=== PATIENT | female | born 1930 | race Asian ===

== ENCOUNTER → 2017-01-22 | Outpatient (CLI) | payer OTHER ==
[~2017-01-22] MED LIST: CALC-393 PO; FERR1TAB13 PO; GLUC1CAP32 PO; LINA1CAP2 PO; LOVA40TA4 PO; PANT40TA PO
[2017-01-22 13:08] LABS: BASO % 0.3 %; BASO ABS # 0.02 K/uL (0-0.2); COMPLETE YES; EOS % 1.3 %; HEMATOCRIT 29.8 % (37-47); IG% 0.2 %; LYMPH % 30.2 %; MEAN CELL VOLUME 84.7 fL (80-100); MEAN CORPUSCULAR HEMOGLOBIN 26.7 pg (25-34); MEAN CORPUSCULAR HGB CONC 31.5 g/dl (32-36); MEAN PLATELET VOLUME 10.7 fL (7.4-10.4); MONO % 6.2 %; NEUT % 61.8 %; PLATELET COUNT 204 K/uL (130-400); RED BLOOD COUNT 3.52 M/uL (4.2-5.4); WHITE BLOOD COUNT 5.97 K/uL (4.8-10.8)
[2017-01-22 13:44] LABS: ALT/SGPT 21 U/L (12-78); AST/SGOT 19 U/L (15-37); BLOOD UREA NITROGEN 25 mg/dl (7-18); BUN/CREATININE RATIO 28.9 (10-20); CALCIUM 8.6 mg/dl (8.5-10.1); CARBON DIOXIDE 24 mmol/L (21-32); CHLORIDE 111 mmol/L (98-107); CHOLESTEROL 156 mg/dl (0-200); CREATININE 0.88 mg/dl (0.60-1.20); GLUCOSE 123 mg/dl (70-99); POTASSIUM 4.8 mmol/L (3.5-5.1); SODIUM 141 mmol/L (136-145); TRIGLYCERIDES 142 mg/dl (0-150); VERY LOW DENSITY LIPOPROT CALC 28 mg/dl
[2017-01-22 13:47] LABS: CHOLESTEROL/HDL RATIO 2.7; FERRITIN 18.2 ng/ml (8.0-388.0); HDL CHOLESTEROL 57 mg/dl; LDL CHOLESTEROL CALCULATED 71 mg/dl; TOTAL IRON BINDING CAPACITY 437 mcg/dl (250-450)
== END | disposition home or self-care (01) ==
LOC: C.LAB1850 12:16
PROVIDERS: ATTEND Internal Medicine
DX: D64.9 Anemia, unspecified (principal); E78.5 Hyperlipidemia, unspecified

== ENCOUNTER → 2017-02-19 | Outpatient (CLI) | payer OTHER ==
[2017-02-19 14:44] LABS: BASO % 0.7 %; BASO ABS # 0.04 K/uL (0-0.2); EOS % 2.2 %; HEMATOCRIT 28.1 % (37-47); IG% 0.2 %; LYMPH % 36.3 %; MEAN CELL VOLUME 82.9 fL (80-100); MEAN CORPUSCULAR HEMOGLOBIN 25.7 pg (25-34); MEAN PLATELET VOLUME 10.5 fL (7.4-10.4); MONO % 8.5 %; NEUT % 52.1 %; PLATELET COUNT 244 K/uL (130-400); RED BLOOD COUNT 3.39 M/uL (4.2-5.4); WHITE BLOOD COUNT 5.79 K/uL (4.8-10.8)
[2017-02-19 15:12] LABS: COMPLETE YES; OVALOCYTES 1+
== END | disposition home or self-care (01) ==
LOC: C.LAB1850 13:35
PROVIDERS: ATTEND Internal Medicine
DX: D64.9 Anemia, unspecified (principal)

== ENCOUNTER → 2017-05-31 | Outpatient (CLI) | payer OTHER ==
[2017-05-31 11:16] LABS: BASO % 0.4 %; BASO ABS # 0.02 K/uL (0-0.2); COMPLETE YES; EOS % 2.1 %; HEMATOCRIT 30.9 % (37-47); IG% 0.2 %; LYMPH % 35.8 %; LYMPH ABS # 1.87 K/uL (1.2-3.4); MEAN CELL VOLUME 86.1 fL (80-100); MEAN CORPUSCULAR HEMOGLOBIN 25.1 pg (25-34); MEAN CORPUSCULAR HGB CONC 29.1 g/dl (32-36); MEAN PLATELET VOLUME 10.9 fL (7.4-10.4); MONO % 7.6 %; NEUT % 53.9 %; PLATELET COUNT 233 K/uL (130-400); RED BLOOD COUNT 3.59 M/uL (4.2-5.4); WHITE BLOOD COUNT 5.23 K/uL (4.8-10.8)
[2017-05-31 11:19] LABS: BLOOD UREA NITROGEN 18 mg/dl (7-18); BUN/CREATININE RATIO 20.3 (10-20); CALCIUM 9.1 mg/dl (8.5-10.1); CARBON DIOXIDE 28 mmol/L (21-32); CHLORIDE 106 mmol/L (98-107); GLUCOSE 78 mg/dl (70-99); SODIUM 141 mmol/L (136-145)
[2017-05-31 11:24] LABS: FERRITIN 13.9 ng/ml (8.0-388.0)
== END | disposition home or self-care (01) ==
LOC: C.LAB1850 09:40
PROVIDERS: ATTEND Physician Assistant
DX: D64.9 Anemia, unspecified (principal); H90.A32 Mixed conductive and sensorineural hearing loss, unilateral, left ear with restricted hearing on the contralateral side

== ENCOUNTER → 2017-06-02 | Outpatient (CLI) | payer OTHER ==
[~2017-06-02] MED LIST changes: +GADAVIST IV PRN
--- NOTE | 2017-06-02 12:12 | DIAGNOSTIC IMAGING REPORT ---
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 Several small additional foci of increased signal within the periventricular deep white matter regions. As compared to the prior study this appears to be slightly progressive chronic small vessel change. Internal auditory canals are symmetric. Sella and parasellar regions are unremarkable. Mild chronic mucosal thickening in the mastoid air cells. No abnormal postcontrast enhancement. IMPRESSION: 1. Negative internal auditory canals. 2. Mildly progressive chronic small vessel change throughout both cerebral hemispheres. 3. No abnormal postcontrast enhancement. Electronically signed by: Kobi Julio M.D. 06/02/2017 12:10 PM Dictated Date/Time: 06/02/2017 12:03 PM
== END | disposition home or self-care (01) ==
LOC: C.MRI 10:46
PROVIDERS: ATTEND Physician Assistant
DX: H90.A32 Mixed conductive and sensorineural hearing loss, unilateral, left ear with restricted hearing on the contralateral side (principal)

== ENCOUNTER → 2017-06-11 | Outpatient (CLI) | payer OTHER ==
[~2017-06-11] MED LIST changes: -GADAVIST IV PRN
[2017-06-11 12:16] LABS: BASO % 0.4 %; BASO ABS # 0.02 K/uL (0-0.2); COMPLETE YES; EOS % 1.8 %; HEMATOCRIT 30.7 % (37-47); IG% 0.2 %; LYMPH % 30.5 %; LYMPH ABS # 1.56 K/uL (1.2-3.4); MEAN CELL VOLUME 84.8 fL (80-100); MEAN CORPUSCULAR HEMOGLOBIN 25.7 pg (25-34); MEAN CORPUSCULAR HGB CONC 30.3 g/dl (32-36); MEAN PLATELET VOLUME 10.5 fL (7.4-10.4); NEUT % 59.1 %; PLATELET COUNT 243 K/uL (130-400); RED BLOOD COUNT 3.62 M/uL (4.2-5.4); WHITE BLOOD COUNT 5.11 K/uL (4.8-10.8)
[2017-06-11 12:35] LABS: ALT/SGPT 23 U/L (12-78); BLOOD UREA NITROGEN 22 mg/dl (7-18); BUN/CREATININE RATIO 24.5 (10-20); CALCIUM 9.1 mg/dl (8.5-10.1); CARBON DIOXIDE 30 mmol/L (21-32); CHLORIDE 108 mmol/L (98-107); CREATININE 0.91 mg/dl (0.60-1.20); GLUCOSE 86 mg/dl (70-99); POTASSIUM 4.9 mmol/L (3.5-5.1); SODIUM 140 mmol/L (136-145)
[2017-06-11 12:38] LABS: ALB/GLOB RATIO 1.1 (0.9-2); ALKALINE PHOSPHATASE 50 U/L (45-117); AST/SGOT 15 U/L (15-37); TOTAL IRON BINDING CAPACITY 446 mcg/dl (250-450)
--- NOTE | 2017-06-17 14:01 | CODING QUERY MEDICAL NECESSITY ---
CQSUPPORTING DIAGNOSIS NEEDED A supporting diagnosis is required for the test/procedure performed on this patient in order for us to be reimbursed by the patient's insurance. Please provide a supporting diagnosis for the following test/procedure listed below next to the test name along with your signature. *If there is no additional diagnosis for this patient that would support the following test/procedure please document that below next to the test/procedure. Test(s)/Procedure(s) that require a supporting diagnosis: DOS 06/11/17 VITAMIN B12 TST FOLIC ACID TEST Provider Signature: Date: Thank you Corrine Goldsmith Health Information Management Once completed, please kindly fax back to [phone] For questions please call [phone]
== END | disposition home or self-care (01) ==
LOC: C.LAB1850 10:47
PROVIDERS: ATTEND Nurse Practitioner Family
DX: D50.9 Iron deficiency anemia, unspecified (principal)

== ENCOUNTER → 2017-10-28 | Outpatient (CLI) | payer OTHER ==
[2017-10-28 13:14] LABS: HEMATOCRIT 33.9 % (37-47); MEAN CELL VOLUME 92.1 fL (80-100); MEAN CORPUSCULAR HEMOGLOBIN 28.8 pg (25-34); MEAN CORPUSCULAR HGB CONC 31.3 g/dl (32-36); MEAN PLATELET VOLUME 10.8 fL (7.4-10.4); PLATELET COUNT 215 K/uL (130-400); RED BLOOD COUNT 3.68 M/uL (4.2-5.4); WHITE BLOOD COUNT 6.21 K/uL (4.8-10.8)
[2017-10-28 13:47] LABS: BLOOD UREA NITROGEN 16 mg/dl (7-18); BUN/CREATININE RATIO 19.2 (10-20); CALCIUM 8.6 mg/dl (8.5-10.1); CARBON DIOXIDE 27 mmol/L (21-32); CHLORIDE 107 mmol/L (98-107); CHOLESTEROL 237 mg/dl (0-200); CREATININE 0.83 mg/dl (0.60-1.20); GLUCOSE 81 mg/dl (70-99); POTASSIUM 4.3 mmol/L (3.5-5.1); SODIUM 138 mmol/L (136-145)
[2017-10-28 13:54] LABS: FERRITIN 18.5 ng/ml (8.0-388.0); HDL CHOLESTEROL 59 mg/dl; LDL CHOLESTEROL CALCULATED 144 mg/dl; TOTAL IRON BINDING CAPACITY 394 mcg/dl (250-450); TRIGLYCERIDES 171 mg/dl (0-150); VERY LOW DENSITY LIPOPROT CALC 34 mg/dl
== END | disposition home or self-care (01) ==
LOC: C.LAB1850 11:57
PROVIDERS: ATTEND Internal Medicine
DX: D64.9 Anemia, unspecified (principal); E78.5 Hyperlipidemia, unspecified

== ENCOUNTER → 2017-12-27 | Outpatient (CLI) | payer OTHER ==
[~2017-12-27] MED LIST changes: +AMOX875T PO; +ASPEC81 PO; +LCTX PO; +LISI-461 PO; +LPR25 PO; +LSX20 PO; +POTA10CA28 PO
--- NOTE | 2017-12-27 10:19 | DIAGNOSTIC IMAGING REPORT ---
CHEST 2 VIEWS ROUTINE HISTORY: 87 years-old Female R05 [id number] acute cough COMPARISON: Chest radiographs 11/09/2016, 11/02/2016 and 04/06/2016 TECHNIQUE: PA and lateral views of the chest FINDINGS: Cardiac silhouette is again moderately enlarged. Surgical clip projects over the right hilar region. Atherosclerosis of the aorta with tortuosity of the descending thoracic aorta. Mild pulmonary vascular congestion with mild background interstitial coarsening. No pneumothorax. No large pleural effusion. Subsegmental ill-defined left basilar opacities suggest atelectasis. Bones of the chest appear grossly intact. Levoscoliosis of the mid thoracic spine. IMPRESSION: Cardiomegaly and pulmonary vascular congestion is noted in addition to mild interstitial coarsening which may reflect developing pulmonary edema. The above report was generated using voice recognition software. It may contain grammatical, syntax or spelling errors. Electronically signed by: Brandon Slade M.D. 12/27/2017 10:18 AM Dictated Date/Time: 12/27/2017 10:15 AM
== END | disposition home or self-care (01) ==
LOC: C.RAD1850 10:04
PROVIDERS: ATTEND Internal Medicine
DX: R05 Cough (principal); I51.7 Cardiomegaly; J81.1 Chronic pulmonary edema

== ENCOUNTER 2018-01-03 14:59 | Inpatient (IN) | payer OTHER ==
[~2018-01-03] VITALS: Ht 154.9 cm; Wt 83.0 kg
[~2018-01-03 14:59] MED LIST changes: -AMOX875T PO; -ASPEC81 PO; -LCTX PO; -LISI-461 PO; -LPR25 PO; -LSX20 PO; -POTA10CA28 PO
[2018-01-03] MEDS ORDERED: ASPIRIN 81 MG CHEW PO STA (16:26)
[2018-01-03] MEDS ORDERED: NITROGLYCERIN 0.4 MG SL PER TAB CHARGE SL PRN ×2 (16:30→19:30)
[2018-01-03 16:51] LABS: BASO % 0.3 %; BASO ABS # 0.02 K/uL (0-0.2); EOS % 1.9 %; EOS ABS # 0.12 K/uL (0-0.5); HEMATOCRIT 31.3 % (37-47); HEMOGLOBIN 9.9 g/dL (12.0-16.0); IG# 0.02 K/uL (0.00-0.02); LYMPH % 34.7 %; LYMPH ABS # 2.14 K/uL (1.2-3.4); MEAN CELL VOLUME 92.3 fL (80-100); MEAN CORPUSCULAR HEMOGLOBIN 29.2 pg (25-34); MEAN CORPUSCULAR HGB CONC 31.6 g/dl (32-36); MEAN PLATELET VOLUME 10.7 fL (7.4-10.4); MONO % 8.9 %; MONO ABS # 0.55 K/uL (0.11-0.59); NEUT % 53.9 %; NEUT ABS # 3.32 K/uL (1.4-6.5); PLATELET COUNT 216 K/uL (130-400); RED CELL DISTRIBUTION WIDTH CV 14.8 % (11.5-14.5); RED CELL DISTRIBUTION WIDTH SD 48.2 fL (36.4-46.3); WHITE BLOOD COUNT 6.17 K/uL (4.8-10.8)
--- NOTE | 2018-01-03 17:08 | DIAGNOSTIC IMAGING REPORT ---
CHEST ONE VIEW PORTABLE HISTORY: 87 years-old Female CP acute atypical chest pain COMPARISON: Chest radiograph 12/27/2017 and 11/09/2016 TECHNIQUE: Portable AP view of the chest FINDINGS: Cardiac silhouette is again enlarged. Atherosclerosis of the aorta. Mild blunting of the costophrenic angles suggests trace effusions. No pneumothorax. There is pulmonary vascular congestion with minimal bilateral interstitial coarsening. No definite overt pulmonary edema. Subsegmental patchy bibasilar opacities. Bones of the chest appear grossly intact. Degenerative changes are noted within the shoulders and spine. IMPRESSION: 1. Cardiomegaly and pulmonary vascular congestion without overt pulmonary edema. 2. Trace bilateral pleural effusions with bibasilar opacities suggesting atelectasis or pneumonitis. The above report was generated using voice recognition software. It may contain grammatical, syntax or spelling errors. Electronically signed by: Brandon Slade M.D. 01/03/2018 5:07 PM Dictated Date/Time: 01/03/2018 5:04 PM
[2018-01-03 17:27] LABS: ALBUMIN 3.4 gm/dl (3.4-5.0); ALKALINE PHOSPHATASE 47 U/L (45-117); ALT/SGPT 24 U/L (12-78); BLOOD UREA NITROGEN 22 mg/dl (7-18); CALCIUM 8.5 mg/dl (8.5-10.1); CARBON DIOXIDE 26 mmol/L (21-32); CREATININE 0.88 mg/dl (0.60-1.20); GLUCOSE 83 mg/dl (70-99); LIPASE 223 U/L (73-393); SODIUM 140 mmol/L (136-145); TOTAL PROTEIN 6.9 gm/dl (6.4-8.2)
[2018-01-03 18:05] LABS: POTASSIUM 4.7 mmol/L (3.5-5.1)
[2018-01-03 18:10] LABS: AST/SGOT 18 U/L (15-37)
[2018-01-03] MEDS ORDERED: LEVAQUIN 500MG / 100ML D5W IV ONE (18:45)
--- NOTE | 2018-01-03 19:23 | History and Physical ---
History & Physical Date & Time of Service: Jan 03, 2018 at 19:12 Chief Complaint: Xray Shows Fluid Around Lungs SOB Primary Care Physician: Maximus Diaz M.D. History of Present Illness Source: patient, family, hospital records 87 years old female with past medical history of GERD, colonic AVM, hypertension and dyslipidemia chronic blood loss secondary to AVM and iron deficiency anemia. Patient was sent from her primary care physician office after obtaining a chest x-ray that showed bilateral lower lung density, questionable atelectasis versus pneumonitis with minimal bilateral pleural effusion. Initially she went to her primary care physician because she has been having progressive shortness of breath over the past few months also for more than 2 months she has been having cough with whitish sputum. As per primary care physician discussion with family she gained 8 pounds between her last visit today. Denies any fever or chills. Today she had substernal chest pain. Patient is unable to describe chest pain but currently resolved. As per granddaughter the pain is intermittent and comes and goes over the past few months. Also patient does have a abdominal pain and bilateral lower extremity pain. Patient does not speak [place]ian patient granddaughter assisted in translation. Past Medical/Surgical History Medical Problems: (1) Hypercholesteremia Status: Chronic (2) S/P hernia repair Status: Resolved Surgical Problems: (1) S/P knee replacement Status: Resolved Family History Patient reports no known family medical history. Social History Smoking Status: Never Smoker Drug Use: none Marital Status: Housing status: lives with family Occupational Status: unemployed Allergies Coded Allergies: No Known Allergies (Verified , 01/03/18) Home Medications Scheduled Lovastatin (Mevacor), 40 MG PO DAILY Review of Systems Constitutional: + weakness, + fatigue, No fever, No chills, No sweats, No weight loss, No problem reported Eyes: No worsening of vision, No eye pain, No redness, No discharge, No diplopia, No problem reported ENT: No hearing loss, No unusual epistaxis, No nasal symptoms, No sore throat, No tinnitus, No dental problems, No trouble swallowing, No problem reported Respiratory: + cough, + sputum, + shortness of breath, + dyspnea on exertion, + dyspnea at rest, No wheezing, No hemoptysis, No problem reported Cardiovascular: + chest pain, + edema, No orthopnea, No PND, No claudication, No palpitations, No problem reported Abdomen: + pain, No nausea, No vomiting, No diarrhea, No constipation, No GI bleeding, No problem reported Musculoskeletal: No joint pain, No muscle pain, No swelling, No calf pain, No problem reported Genitourinary - Female: No dysuria, No urinary frequency, No urinary urgency, No urinary incontinence, No urinary retention, No hematuria, No dysmenorrhea, No menorrhagia, No metrorrhagia, No rash, No vaginal bleeding, No vaginal discharge, No vaginal itching, No vulvodynia, No , No problem reported Neurologic: No memory loss, No paralysis, No weakness, No numbness/tingling, No vertigo, No balance problems, No problem reported Psychiatric: No depression symptoms, No anhedonism, No anxiety, No insomnia, No substance abuse, No problem reported Endocrine: No fatigue, No excessive thirst, No excessive urination, No problem reported Hematologic / Lymphatic: No abnormal bleeding/bruising, No clotting problems, No swollen lymph nodes, No night sweats, No problem reported Integumentary: No rash, No itch, No new/changing skin lesions, No color change , No bleeding, No problem reported Allergic / Immunologic: No environmental allergies, No seasonal allergies, No pet sensitivities, No food allergies, No hives, No frequent infections, No poor healing, No prolonged convalescence, No problem reported Physical Exam Vital Signs Date Time Temp Pulse Resp B/P (MAP) Pulse Ox O2 Delivery O2 Flow Rate FiO2 01/03/18 18:50 66 16 204/88 97 Room Air 01/03/18 17:37 65 16 149/78 99 Room Air 01/03/18 16:39 68 01/03/18 15:17 36.8 75 20 160/76 95 Room Air General Appearance: no apparent distress, + obese Head: normocephalic, atraumatic Eyes: normal inspection, EOMI ENT: normal ENT inspection, hearing grossly normal Neck: supple Respiratory/Chest: chest non-tender, + decreased breath sounds, + crackles, + rales, + rhonchi Cardiovascular: regular rate, rhythm, + systolic murmur, + gallop/S3 Abdomen/GI: normal bowel sounds, soft, no organomegaly, no pulsatile mass, + tenderness, + hernia Back: normal inspection Extremities/Musculoskelatal: normal inspection, + calf tenderness, + pedal edema, + swelling Neurologic/Psych: chainstitch binder II-XII nml as tested, no motor/sensory deficits, alert, normal mood/affect, normal reflexes, oriented x 3 Skin: normal color, warm/dry, no rash Diagnostics Laboratory Results Results Past 24 Hours Test 01/03/18 16:37 01/03/18 17:27 01/03/18 17:43 Range/Units White Blood Count 6.17 4.8-10.8 K/uL Red Blood Count 3.39 4.2-5.4 M/uL Hemoglobin 9.9 12.0-16.0 g/dL Hematocrit 31.3 37-47 % Mean Corpuscular Volume 92.3 80-100 fL Mean Corpuscular Hemoglobin 29.2 25-34 pg Mean Corpuscular Hemoglobin Concent 31.6 32-36 g/dl Platelet Count 216 130-400 K/uL Mean Platelet Volume 10.7 7.4-10.4 fL Neutrophils (%) (Auto) 53.9 % Lymphocytes (%) (Auto) 34.7 % Monocytes (%) (Auto) 8.9 % Eosinophils (%) (Auto) 1.9 % Basophils (%) (Auto) 0.3 % Neutrophils # (Auto) 3.32 1.4-6.5 K/uL Lymphocytes # (Auto) 2.14 1.2-3.4 K/uL Monocytes # (Auto) 0.55 0.11-0.59 K/uL Eosinophils # (Auto) 0.12 0-0.5 K/uL Basophils # (Auto) 0.02 0-0.2 K/uL RDW Standard Deviation 48.2 36.4-46.3 fL RDW Coefficient of Variation 14.8 11.5-14.5 % Immature Granulocyte % (Auto) 0.3 % Immature Granulocyte # (Auto) 0.02 0.00-0.02 K/uL Sodium Level 140 136-145 mmol/L Potassium Level 4.7 3.5-5.1 mmol/L Chloride Level 107 98-107 mmol/L Carbon Dioxide Level 26 21-32 mmol/L Anion Gap 7.0 3-11 mmol/L Blood Urea Nitrogen 22 7-18 mg/dl Creatinine 0.88 0.60-1.20 mg/dl Est Creatinine Clear Calc Drug Dose 44.8 ml/min Estimated GFR () 68.5 Estimated GFR (Non- 59.1 BUN/Creatinine Ratio 25.3 10-20 Random Glucose 83 70-99 mg/dl Calcium Level 8.5 8.5-10.1 mg/dl Total Bilirubin 0.2 0.2-1 mg/dl Direct Bilirubin < 0.1 0-0.2 mg/dl Aspartate Amino Transf (AST/SGOT) 18 15-37 U/L Alanine Aminotransferase (ALT/SGPT) 24 12-78 U/L Alkaline Phosphatase 47 45-117 U/L Troponin I < 0.015 0-0.045 ng/ml Total Protein 6.9 6.4-8.2 gm/dl Albumin 3.4 3.4-5.0 gm/dl Lipase 223 73-393 U/L Urine Color YELLOW Urine Appearance CLEAR CLEAR Urine pH 8.0 4.5-7.5 Urine Specific [place] 1.008 1.000-1.030 Urine Protein NEG NEG Urine Glucose (UA) NEG NEG Urine Ketones NEG NEG Urine Occult Blood NEG NEG Urine Nitrite NEG NEG Urine Bilirubin NEG NEG Urine Urobilinogen NEG NEG Urine Leukocyte Esterase NEG NEG Urine WBC (Auto) 1-5 0-5 /hpf Urine RBC (Auto) 0-4 0-4 /hpf Urine Hyaline Casts (Auto) 0 0-5 /lpf Urine Epithelial Cells (Auto) 0-5 0-5 /lpf Urine Bacteria (Auto) NEG NEG Impression Assessment and Plan 87 years old female presented to the ED with progressive shortness of breath and intermittent chest pain. Also patient has cough with whitish sputum production. Weight gain, generalized weakness. 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 Dyslipidemia Morbid obesity Clinically suspected obstructive sleep apnea Abdominal pain with uncomplicated hernia Plan admit to telemetry obtain serial cardiac enz NTG SL/topical prn cp consult sql report analyst pain management repeat EKG prn chest pain Check hemoglobin A1c/lipids to stratify patient risk factors We'll order abdominal ultrasound to rule out masses to evaluate her abdominal pain Levofloxacin for bronchitis, start probiotic for C. difficile prophylaxis I/Os 2Decho gentle diuresis control blood pressure, afterload and preload DVT prophylaxis with heparin subcutaneous We'll order an overnight sleep O2 sat monitor Level of Care Telemetry Resuscitation Status FULL RESUSCITATION VTE Prophylaxis Given or contraindicated: Unfractionated heparin SQ, T.E.D. Stockings, SCD's
[2018-01-03] MEDS ORDERED: ZOLPIDEM TARTRATE 5 MG TAB PO PRN ×2 (19:30)
[2018-01-03] MEDS ORDERED: ALUMINUM/MAGNESIUM/SIMETH (MAALOX MAX) 30 ML UDC PO PRN (19:30)
[2018-01-03] MEDS ORDERED: MAGNESIUM HYDROXIDE SUSP 30 ML UDC PO PRN (19:30)
[2018-01-03] MEDS ORDERED: ACETAMINOPHEN 325 MG TAB PO PRN (19:30)
[2018-01-03] MEDS ORDERED: POLYETHYLENE (MIRALAX) 17 GM PACK PO PRN (19:30)
[2018-01-03] MEDS ORDERED: HydrALAZINE HCL 20 MG/ML VIAL IV. PRN (19:30)
[2018-01-03] MEDS ORDERED: ONDANSETRON INJ 2 MG/ML 2 ML VIAL IV PRN (19:30)
[2018-01-03] MEDS ORDERED: NITROGLYCERIN 2% OINTMENT 30GM TUBE EXT SCH ×2 (19:45→20:00)
[2018-01-03 20:35] VITALS: BP 145/67; PULSE 66; TEMP 36.4; O2SAT 94; Ht 154.9 cm; Wt 83.0 kg
[2018-01-03] MEDS ORDERED: AMLODIPINE BESYLATE 5 MG TAB PO STA (20:47)
[2018-01-03] MEDS ORDERED: LEVALBUTEROL/IPRATROPIUM NEB INH SCH (21:00)
[2018-01-03] MEDS ORDERED: LOVASTATIN 20 MG TAB PO SCH (21:00)
[2018-01-03] MEDS ORDERED: PNEUMOCOCCAL POLYSACCHARIDES 25 MCG/0.5 ML VIAL/SYR IM. ONE (21:30)
[2018-01-03] MEDS ORDERED: PNEUMOCOCCAL ADMINISTRATION CHARGE ONE (21:30)
[2018-01-03 21:33] LABS: INR 1.1 (0.9-1.1); PTT PATIENT 24.4 SECONDS (21.0-31.0)
--- NOTE | 2018-01-03 21:45 | EMERGENCY ROOM VISIT NOTE ---
History Report prepared by Sebastien: Larry Tadeo Under the Supervision of: Dr. Magdaleno Ervin D.O. First contact with patient: 16:14 Chief Complaint: ABNORMAL DIAGNOSTIC TESTING Stated Complaint: XRAY SHOWS FLUID AROUND LUNGS History of Present Illness The patient is an 87 year old female who presents to the Emergency Room with complaints of worsening shortness of breath for the past couple of months which is worse with lying down. She notes that she has had shortness of breath for over a year however. Additionally, the patient is complaining of on and off chest pain and neck pain that is worse with walking around and pressing on it. Additionally, the patient has been coughing up phlegm recently. The patient was seen at her PCP a week ago, and she had a chest x-ray, and they told her that she has some fluid around her lungs, and today she had another x-ray, and they told her to come to the ED for evaluation and to be put on Lasix IV. The patient has additionally been complaining of abdominal pain today. She has a history of hypertension, high cholesterol, and a hernia repair. She does not have a history of heart disease or cholecystectomy. Source of History: patient Onset: couple of months Position: other (global) Quality: other (shortnes of breath) Timing: worsening Modifying Factors (Worsening): other (lying) Associated Symptoms: + neck pain, + chest pain, + abdominal pain Review of Systems See HPI for pertinent positives & negatives. A total of 10 systems reviewed and were otherwise negative. Past Medical & Surgical Medical Problems: (1) CHF (congestive heart failure) (2) GI bleed (3) Hypercholesteremia (4) S/P hernia repair Surgical Problems: (1) S/P knee replacement Family History Patient reports no known family medical history. Social History Smoking Status: Never Smoker Alcohol Use: none Drug Use: none Marital Status: Housing Status: lives with family Occupation Status: unemployed Current/Historical Medications Scheduled Lovastatin (Mevacor), 40 MG PO DAILY Allergies Coded Allergies: No Known Allergies (Verified , 01/03/18) Physical Exam Vital Signs Date Time Temp Pulse Resp B/P (MAP) Pulse Ox O2 Delivery O2 Flow Rate FiO2 01/03/18 18:50 66 16 204/88 97 Room Air 01/03/18 17:37 65 16 149/78 99 Room Air 01/03/18 16:39 68 2/12/18 15:17 36.8 75 20 160/76 95 Room Air Physical Exam GENERAL: Sitting up in bed, alert, well appearing, well nourished, no distress, non-toxic EYE EXAM: normal conjunctiva. OROPHARYNX: no exudate, no erythema, lips, buccal mucosa, and tongue normal and mucous membranes are moist NECK: supple, no nuchal rigidity, no adenopathy, non-tender, no JVD CHEST: Precordial chest pain LUNGS: Coarse at the bilateral bases. Normal chest wall mechanics HEART: no murmurs, S1 normal and S2 normal ABDOMEN: abdomen soft, non-tender, normo-active bowel sounds, no masses, no rebound or guarding. BACK: Back is symmetrical on inspection and there is no deformity, no midline tenderness, no CVA tenderness. SKIN: no rashes and no bruising UPPER EXTREMITIES: upper extremities are grossly normal. LOWER EXTREMITIES: Pitting edema in the bilateral lower extremities. NEURO EXAM: Normal sensorium, cranial nerves II-XII grossly intact, normal speech, no gross weakness of arms, no gross weakness of legs. Medical Decision & Procedures ER Provider Diagnostic Interpretation: Radiology results as stated below per my review and the radiologist's interpretation: CHEST ONE VIEW PORTABLE HISTORY: 87 years-old Female CP acute atypical chest pain COMPARISON: Chest radiograph 12/27/2017 and 11/09/2016 TECHNIQUE: Portable AP view of the chest FINDINGS: Cardiac silhouette is again enlarged. Atherosclerosis of the aorta. Mild blunting of the costophrenic angles suggests trace effusions. No pneumothorax. There is pulmonary vascular congestion with minimal bilateral interstitial coarsening. No definite overt pulmonary edema. Subsegmental patchy bibasilar opacities. Bones of the chest appear grossly intact. Degenerative changes are noted within the shoulders and spine. IMPRESSION: 1. Cardiomegaly and pulmonary vascular congestion without overt pulmonary edema. 2. Trace bilateral pleural effusions with bibasilar opacities suggesting atelectasis or pneumonitis. The above report was generated using voice recognition software. It may contain grammatical, syntax or spelling errors. Electronically signed by: Brandon Slade M.D. 01/03/2018 5:07 PM Dictated Date/Time: 01/03/2018 5:04 PM Laboratory Results 01/03/18 16:37 Red Blood Count 3.39, Mean Corpuscular Volume 92.3, Mean Corpuscular Hemoglobin 29.2, Mean Corpuscular Hemoglobin Concent 31.6, Mean Platelet Volume 10.7, Neutrophils (%) (Auto) 53.9, Lymphocytes (%) (Auto) 34.7, Monocytes (%) (Auto) 8.9, Eosinophils (%) (Auto) 1.9, Basophils (%) (Auto) 0.3, Neutrophils # (Auto) 3.32, Lymphocytes # (Auto) 2.14, Monocytes # (Auto) 0.55, Eosinophils # (Auto) 0.12, Basophils # (Auto) 0.02 01/03/18 16:37 01/03/18 17:43 Test 01/03/18 16:37 01/03/18 17:27 01/03/18 17:35 01/03/18 17:43 White Blood Count 6.17 K/uL (4.8-10.8) Red Blood Count 3.39 M/uL (4.2-5.4) Hemoglobin 9.9 g/dL (12.0-16.0) Hematocrit 31.3 % (37-47) Mean Corpuscular Volume 92.3 fL (80-100) Mean Corpuscular Hemoglobin 29.2 pg (25-34) Mean Corpuscular Hemoglobin Concent 31.6 g/dl (32-36) Platelet Count 216 K/uL (130-400) Mean Platelet Volume 10.7 fL (7.4-10.4) Neutrophils (%) (Auto) 53.9 % Lymphocytes (%) (Auto) 34.7 % Monocytes (%) (Auto) 8.9 % Eosinophils (%) (Auto) 1.9 % Basophils (%) (Auto) 0.3 % Neutrophils # (Auto) 3.32 K/uL (1.4-6.5) Lymphocytes # (Auto) 2.14 K/uL (1.2-3.4) Monocytes # (Auto) 0.55 K/uL (0.11-0.59) Eosinophils # (Auto) 0.12 K/uL (0-0.5) Basophils # (Auto) 0.02 K/uL (0-0.2) RDW Standard Deviation 48.2 fL (36.4-46.3) RDW Coefficient of Variation 14.8 % (11.5-14.5) Immature Granulocyte % (Auto) 0.3 % Immature Granulocyte # (Auto) 0.02 K/uL (0.00-0.02) Anion Gap 7.0 mmol/L (3-11) Est Creatinine Clear Calc Drug Dose 44.8 ml/min Estimated GFR () 68.5 Estimated GFR (Non- 59.1 BUN/Creatinine Ratio 25.3 (10-20) Calcium Level 8.5 mg/dl (8.5-10.1) Total Bilirubin 0.2 mg/dl (0.2-1) Alanine Aminotransferase (ALT/SGPT) 24 U/L (12-78) Alkaline Phosphatase 47 U/L (45-117) Troponin I < 0.015 ng/ml (0-0.045) Total Protein 6.9 gm/dl (6.4-8.2) Albumin 3.4 gm/dl (3.4-5.0) Lipase 223 U/L (73-393) Urine Color YELLOW Urine Appearance CLEAR (CLEAR) Urine pH 8.0 (4.5-7.5) Urine Specific [place] 1.008 (1.000-1.030) Urine Protein NEG (NEG) Urine Glucose (UA) NEG (NEG) Urine Ketones NEG (NEG) Urine Occult Blood NEG (NEG) Urine Nitrite NEG (NEG) Urine Bilirubin NEG (NEG) Urine Urobilinogen NEG (NEG) Urine Leukocyte Esterase NEG (NEG) Urine WBC (Auto) 1-5 /hpf (0-5) Urine RBC (Auto) 0-4 /hpf (0-4) Urine Hyaline Casts (Auto) 0 /lpf (0-5) Urine Epithelial Cells (Auto) 0-5 /lpf (0-5) Urine Bacteria (Auto) NEG (NEG) Triglycerides Level 107 mg/dl (0-150) Cholesterol Level 156 mg/dl (0-200) HDL Cholesterol 59 mg/dl LDL Cholesterol, Calculated 76 mg/dl VLDL Cholesterol, Calculated 21 mg/dl Cholesterol/HDL Ratio 2.6 Direct Bilirubin < 0.1 mg/dl (0-0.2) Aspartate Amino Transf (AST/SGOT) 18 U/L (15-37) Laboratory results per my review. Medications Administered Medications (Trade) Dose Ordered Sig/Rody Route Start Time Stop Time Status Last Admin Dose Admin Aspirin (Aspirin Chew) 324 mg NOW STAT PO 01/03/18 16:26 01/03/18 16:28 DC 01/03/18 16:41 324 MG Nitroglycerin (Nitrostat Tab) 0.4 mg Q5M PRN SL 01/03/18 16:30 01/03/18 21:19 DC 01/03/18 16:41 0.4 MG Levofloxacin (Levaquin / D5W) 500 mg NOW ONCE IV 01/03/18 18:45 01/03/18 18:46 DC 01/03/18 18:48 500 MG ECG Indication: SOB/dyspnea Rate (beats per minute): 70 Rhythm: sinus rhythm Findings: T-wave inversion (lead 3), left axis deviation Comparison ECG Date: 10/31/16 Change: no significant change Change: Patient's electrocardiogram interpreted by me. ED Course ED COURSE: Vital signs were reviewed and showed hypertension The patients medical record was reviewed The above diagnostic studies were performed and reviewed. ED treatments and interventions as stated above. 1614: The patient was evaluated in room A2. A complete history and physical examination was performed. 1626: Aspirin 324mg PO 1630: Nitrostat Tab 0.4mg SL 1818: Upon reevaluation, the patient is doing okay.I discussed my findings with the patient and she understands and agrees with the treatment plan. Based on the patients age, coexisting illnesses, exam and lab findings the decision to treat as an inpatient was made. The patient remained stable while under my care. The patient will be evaluated for further management. 1825: I reviewed the patient's case with Dr. Yobany [place]apata [facility] [place] She will evaluate the patient for further management. 1845: Levofloxacin 500mg IV Medical Decision Differential diagnoses includes but is not limited to pneumonia, bronchitis, COPD/Asthma exacerbation, pneumothorax, pulmonary embolism, congestive heart failure, acute coronary syndrome Patient is an 87-year-old female referred in by PCP for chest x-ray which shows bilateral pleural effusions associated with dyspnea on exertion, chest pain and shortness of breath with lying flat. On exam patient has mild pitting edema. CBC with a mild anemia. BMP all LFTs, bilirubin and troponin are unremarkable. UA was negative. Chest x-ray showed a possible pneumonitis. Patient was updated bedside. She was given dose of Levaquin. She was also given aspirin. She is admits internal medicine for intermittent chest pain, shortness of breath and jaw pain associated with CHF. Medication Reconcilliation Current Medication List: was personally reviewed by me Blood Pressure Screening Patient's blood pressure: Elevated blood pressure Monitored by the hospitalist Consults Time Called: 1817 Consulting Physician: Dr. Yobany MORALES Hospitalist Returned Call: 1824 I reviewed the patient's case with Dr. Yobany MORALES Hospitalist. He will evaluate the patient for further management. Impression Primary Impression: CHF (congestive heart failure) Additional Impressions: Chest pain HTN (hypertension) Scribe Attestation The scribe's documentation has been prepared under my direction and personally reviewed by me in its entirety. I confirm that the note above accurately reflects all work, treatment, procedures, and medical decision making performed by me. Departure Information Dispostion Being Evaluated By Hospitalist Referrals ,Maximus Ramírez M.D. (PCP) Patient Instructions [facility] Problem Qualifiers Primary Impression: CHF (congestive heart failure) Heart failure type: unspecified Heart failure chronicity: unspecified Qualified Codes: I50.9 - Heart failure, unspecified Additional Impressions: Chest pain Chest pain type: unspecified Qualified Codes: R07.9 - Chest pain, unspecified HTN (hypertension) Hypertension type: unspecified Qualified Codes: I10 - Essential (primary) hypertension
[2018-01-03] MEDS: FUROSEMIDE INJ 40 MG in SYRINGE 0 ML IV SCH (21:47)
[2018-01-03] MEDS: METOPROLOL TARTRATE 25 MG TAB PO SCH (21:47)
[2018-01-03] MEDS: POTASSIUM CHLORIDE 10 MEQ TABCR PO SCH (21:48)
[2018-01-03] MEDS: LEVALBUTEROL 0.63MG/3 ML NEB INH SCH (21:52)
[2018-01-03] MEDS: IPRATROPIUM BROMIDE NEB SOLN 0.02% 2.5 ML VIAL INH SCH (21:52)
[2018-01-03 21:58] VITALS: PULSE 68; O2SAT 94
[2018-01-03] MEDS ORDERED: NURSING VERBAL MED ORDER ONE (22:15)
[2018-01-03 22:25] LABS: INFLUENZA B ANTIGEN Neg for Influ B (NEG)
[2018-01-03 23:52] VITALS: BP 114/54; PULSE 75; TEMP 36.3; O2SAT 96
[2018-01-04] MEDS ORDERED: ACETAMINOPHEN IV 650 MG in EMPTY BAG 0 ML IV PRN
[2018-01-04] MEDS: IPRATROPIUM BROMIDE NEB SOLN 0.02% 2.5 ML VIAL INH SCH ×3 (01:23→14:23)
[2018-01-04] MEDS: LEVALBUTEROL 0.63MG/3 ML NEB INH SCH ×3 (01:23→14:24)
[2018-01-04 03:25] VITALS: BP 162/76; PULSE 76; TEMP 37; O2SAT 96
[2018-01-04] MEDS ORDERED: HEPARIN SOD 5000 UNIT/0.5 ML CARP SQ SCH (06:00)
--- NOTE | 2018-01-04 07:06 | DIAGNOSTIC IMAGING REPORT ---
ABDOMEN COMPLETE (US) HISTORY: Pain. Nausea. abdominal pain. COMPARISON: None. FINDINGS: Pancreas: The pancreas demonstrates a normal echotexture. Liver: Mild fatty infiltration Gallbladder: No gallbladder wall thickening. No gallstones. CBD: 5 mm Kidneys: No hydronephrosis. Spleen: Normal in size. Aorta: Normal in caliber. IVC: Patent. IMPRESSION: Mild fatty infiltration of liver. Otherwise negative study The above report was generated using voice recognition software. It may contain grammatical, syntax or spelling errors. Electronically signed by: Kobi Julio M.D. 01/04/2018 7:05 AM Dictated Date/Time: 01/04/2018 7:04 AM
[2018-01-04 07:31] LABS: BASO % 0.4 %; BASO ABS # 0.02 K/uL (0-0.2); EOS % 2.7 %; EOS ABS # 0.14 K/uL (0-0.5); HEMATOCRIT 29.7 % (37-47); HEMOGLOBIN 9.5 g/dL (12.0-16.0); IG# 0.02 K/uL (0.00-0.02); LYMPH ABS # 1.62 K/uL (1.2-3.4); MEAN CELL VOLUME 90.8 fL (80-100); MEAN CORPUSCULAR HEMOGLOBIN 29.1 pg (25-34); MEAN PLATELET VOLUME 9.9 fL (7.4-10.4); MONO % 8.4 %; MONO ABS # 0.44 K/uL (0.11-0.59); NEUT % 57.1 %; NEUT ABS # 2.98 K/uL (1.4-6.5); PLATELET COUNT 189 K/uL (130-400); RED CELL DISTRIBUTION WIDTH CV 14.8 % (11.5-14.5); RED CELL DISTRIBUTION WIDTH SD 48.2 fL (36.4-46.3); WHITE BLOOD COUNT 5.22 K/uL (4.8-10.8)
[2018-01-04] MEDS: LACTOBACILLUS ACIDOPHILUS (FLORANEX) TAB PO SCH ×2 (07:40→11:42)
[2018-01-04 07:44] LABS: ALT/SGPT 22 U/L (12-78); AST/SGOT 16 U/L (15-37); BLOOD UREA NITROGEN 29 mg/dl (7-18); CALCIUM 8.3 mg/dl (8.5-10.1); CARBON DIOXIDE 26 mmol/L (21-32); CREATININE 0.93 mg/dl (0.60-1.20); GLUCOSE 95 mg/dl (70-99); POTASSIUM 4.4 mmol/L (3.5-5.1); SODIUM 139 mmol/L (136-145)
[2018-01-04 07:49] LABS: ALKALINE PHOSPHATASE 46 U/L (45-117); TOTAL PROTEIN 6.5 gm/dl (6.4-8.2)
[2018-01-04 08:47] VITALS: BP 137/77; PULSE 64; TEMP 36.4; O2SAT 97
[2018-01-04] MEDS: METOPROLOL TARTRATE 25 MG TAB PO SCH (08:50)
[2018-01-04] MEDS: POTASSIUM CHLORIDE 10 MEQ TABCR PO SCH (08:50)
[2018-01-04] MEDS: FUROSEMIDE INJ 40 MG in SYRINGE 0 ML IV SCH (08:51)
[2018-01-04] MEDS ORDERED: ASPIRIN 81 MG ECTAB PO SCH (09:00)
[2018-01-04 09:09] LABS: HEMOGLOBIN A1C 4.7 % (4.5-5.6)
--- NOTE | 2018-01-04 09:57 | Progress Note ---
Subjective Date of Service: Jan 04, 2018. Subjective Complaining of cramps in her lower extremities No swelling noticed in lower extremities Pain on right lower extremities Systolic murmur noticed Problem List Medical Problems: (1) Chest pain Status: Acute (2) Dizziness Status: Acute (3) Dyspnea on exertion Status: Acute (4) Headache Status: Acute (5) HTN (hypertension) Status: Acute (6) Right upper quadrant abdominal pain Status: Acute (7) Symptomatic anemia Status: Acute Objective Vital Signs Date Time Temp Pulse Resp B/P (MAP) Pulse Ox O2 Delivery O2 Flow Rate FiO2 01/04/18 08:47 36.4 64 22 137/77 (97) 97 Room Air 01/04/18 08:00 Room Air 01/04/18 03:25 37.0 76 18 162/76 (104) 96 Room Air 01/04/18 03:15 Room Air 01/04/18 00:00 Room Air 01/03/18 23:52 36.3 75 18 114/54 (74) 96 Room Air 01/03/18 21:58 68 18 94 Room Air 01/03/18 20:35 36.4 66 16 145/67 94 Room Air 01/03/18 20:03 62 16 145/72 97 Room Air 01/03/18 18:50 66 16 204/88 97 Room Air 01/03/18 17:37 65 16 149/78 99 Room Air 01/03/18 16:39 68 01/03/18 15:17 36.8 75 20 160/76 95 Room Air Laboratory Results Last 24 Hours Test 01/03/18 16:37 01/03/18 17:27 01/03/18 17:35 01/03/18 17:43 White Blood Count 6.17 K/uL Red Blood Count 3.39 M/uL Hemoglobin 9.9 g/dL Hematocrit 31.3 % Mean Corpuscular Volume 92.3 fL Mean Corpuscular Hemoglobin 29.2 pg Mean Corpuscular Hemoglobin Concent 31.6 g/dl Platelet Count 216 K/uL Mean Platelet Volume 10.7 fL Neutrophils (%) (Auto) 53.9 % Lymphocytes (%) (Auto) 34.7 % Monocytes (%) (Auto) 8.9 % Eosinophils (%) (Auto) 1.9 % Basophils (%) (Auto) 0.3 % Neutrophils # (Auto) 3.32 K/uL Lymphocytes # (Auto) 2.14 K/uL Monocytes # (Auto) 0.55 K/uL Eosinophils # (Auto) 0.12 K/uL Basophils # (Auto) 0.02 K/uL RDW Standard Deviation 48.2 fL RDW Coefficient of Variation 14.8 % Immature Granulocyte % (Auto) 0.3 % Immature Granulocyte # (Auto) 0.02 K/uL Sodium Level 140 mmol/L Potassium Level mmol/L 4.7 mmol/L Chloride Level 107 mmol/L Carbon Dioxide Level 26 mmol/L Anion Gap 7.0 mmol/L Blood Urea Nitrogen 22 mg/dl Creatinine 0.88 mg/dl Est Creatinine Clear Calc Drug Dose 44.8 ml/min Estimated GFR () 68.5 Estimated GFR (Non- 59.1 BUN/Creatinine Ratio 25.3 Random Glucose 83 mg/dl Calcium Level 8.5 mg/dl Total Bilirubin 0.2 mg/dl Direct Bilirubin mg/dl < 0.1 mg/dl Aspartate Amino Transf (AST/SGOT) U/L 18 U/L Alanine Aminotransferase (ALT/SGPT) 24 U/L Alkaline Phosphatase 47 U/L Troponin I < 0.015 ng/ml Total Protein 6.9 gm/dl Albumin 3.4 gm/dl Lipase 223 U/L Urine Color YELLOW Urine Appearance CLEAR Urine pH 8.0 Urine Specific [place] 1.008 Urine Protein NEG Urine Glucose (UA) NEG Urine Ketones NEG Urine Occult Blood NEG Urine Nitrite NEG Urine Bilirubin NEG Urine Urobilinogen NEG Urine Leukocyte Esterase NEG Urine WBC (Auto) 1-5 /hpf Urine RBC (Auto) 0-4 /hpf Urine Hyaline Casts (Auto) 0 /lpf Urine Epithelial Cells (Auto) 0-5 /lpf Urine Bacteria (Auto) NEG Triglycerides Level 107 mg/dl Cholesterol Level 156 mg/dl HDL Cholesterol 59 mg/dl LDL Cholesterol, Calculated 76 mg/dl VLDL Cholesterol, Calculated 21 mg/dl Cholesterol/HDL Ratio 2.6 Test 01/03/18 21:03 01/03/18 21:25 01/04/18 01:11 01/04/18 07:10 Prothrombin Time 11.6 SECONDS Prothromb Time International Ratio 1.1 Activated Partial Thromboplast Time 24.4 SECONDS Partial Thromboplastin Ratio 0.9 Influenza Type A Antigen Neg for Influ A Influenza Type B Antigen Neg for Influ B Troponin I < 0.015 ng/ml < 0.015 ng/ml White Blood Count 5.22 K/uL Red Blood Count 3.27 M/uL Hemoglobin 9.5 g/dL Hematocrit 29.7 % Mean Corpuscular Volume 90.8 fL Mean Corpuscular Hemoglobin 29.1 pg Mean Corpuscular Hemoglobin Concent 32.0 g/dl Platelet Count 189 K/uL Mean Platelet Volume 9.9 fL Neutrophils (%) (Auto) 57.1 % Lymphocytes (%) (Auto) 31.0 % Monocytes (%) (Auto) 8.4 % Eosinophils (%) (Auto) 2.7 % Basophils (%) (Auto) 0.4 % Neutrophils # (Auto) 2.98 K/uL Lymphocytes # (Auto) 1.62 K/uL Monocytes # (Auto) 0.44 K/uL Eosinophils # (Auto) 0.14 K/uL Basophils # (Auto) 0.02 K/uL RDW Standard Deviation 48.2 fL RDW Coefficient of Variation 14.8 % Immature Granulocyte % (Auto) 0.4 % Immature Granulocyte # (Auto) 0.02 K/uL Sodium Level 139 mmol/L Potassium Level 4.4 mmol/L Chloride Level 107 mmol/L Carbon Dioxide Level 26 mmol/L Anion Gap 6.0 mmol/L Blood Urea Nitrogen 29 mg/dl Creatinine 0.93 mg/dl Est Creatinine Clear Calc Drug Dose 41.6 ml/min Estimated GFR () 64.0 Estimated GFR (Non- 55.3 BUN/Creatinine Ratio 31.7 Random Glucose 95 mg/dl Estimated Average Glucose 88 mg/dl Hemoglobin A1c 4.7 % Calcium Level 8.3 mg/dl Magnesium Level 2.4 mg/dl Total Bilirubin 0.3 mg/dl Aspartate Amino Transf (AST/SGOT) 16 U/L Alanine Aminotransferase (ALT/SGPT) 22 U/L Alkaline Phosphatase 46 U/L Total Protein 6.5 gm/dl Albumin 3.0 gm/dl Globulin 3.5 gm/dl Albumin/Globulin Ratio 0.9
--- NOTE | 2018-01-04 12:05 | ECHOCARDIOGRAM REPORT ---
*NOTICE TO RECEIVING LIBERTARIAN AGENCY This information is strictly Confidential and protected under [place] law. [place] law prohibits you from making any further disclosure of this information unless further disclosure is expressly permitted by the written consent of the person to whom it pertains or is authorized by law. A general authorization for the release of medical or other information is not sufficient for this purpose. Hospital accepts no responsibility if the information is made available to any other person, INCLUDING THE PATIENT. Interpretation Summary * Name: JANNIE HUFF Study Date: 01/04/2018 07:03 AM BP: 162/76 mmHg * Patient Location: C.2T\S\S232\S\1 HR: 61 * : 1930 (M/d/yyyy) Gender: Female Height: 61 in * Age: 87 yrs Ethnicity: Weight: 189 lb * Ordering Physician: Ysabel Serna * Referring Physician: Katelin Griffin * Performed By: [facility] R[facility] * * Reason For Study: CHF / CHEST PAIN * BSA: 1.8 m2 * -- Conclusions -- * There is mild concentric left ventricular hypertrophy. * Left ventricular systolic function is normal. * Diastolic dysfunction, Grade II, consistent with elevated left atrial pressure. * The mitral valve apparatus involves significant prolapse of a posterior segment * At least moderate mitral regurgitation. This may be underestimated due to the eccentricity of the regurgitant jet * Right ventricular systolic pressure is elevated at 30-40mmHg. * Compared to an echocardiogram from 11/02/2016, there is no definite change Procedure Details * A complete two-dimensional transthoracic echocardiogram was performed (2D, M-mode, Doppler and color flow Doppler). Left Ventricle * The left ventricle is normal in size. * There is mild concentric left ventricular hypertrophy. * Left ventricular systolic function is normal. * Diastolic dysfunction, Grade II, consistent with elevated left atrial pressure. * The left ventricular wall motion is normal. Right Ventricle * The right ventricle is normal in size and function. * The right ventricular systolic function is normal as assessed by tricuspid annular plane systolic excursion (TAPSE) (normal >1.5 cm). Mitral Valve * The mitral valve apparatus involves significant prolapse of a posterior segment * There is no mitral valve stenosis. * At least moderate mitral regurgitation. This may be underestimated due to the eccentricity of the regurgitant jet Tricuspid Valve * The tricuspid valve is not well visualized, but is grossly normal. * There is mild tricuspid regurgitation. * Right ventricular systolic pressure is elevated at 30-40mmHg. Aortic Valve * The aortic valve is normal in structure and function. * The aortic valve is trileaflet. * No hemodynamically significant valvular aortic stenosis. * Trace aortic regurgitation. Great Vessels * The aortic root is normal size. Pericardium/Pleural * There is no pericardial effusion. Great Vessels * Normal inferior vena cava diameter and respiratory variation suggests normal central venous pressure. MMode 2D Measurements and Calculations IVSd 1.5 cm IVSs 2.0 cm LVIDd 5.0 cm LVIDs 3.1 cm LVPWd 1.5 cm LVPWs 1.7 cm IVS/LVPW 0.99 FS 38.7 % EDV(Teich) 119.0 ml ESV(Teich) 37.1 ml EF(Teich) 68.8 % EDV(cubed) 126.0 ml ESV(cubed) 29.0 ml EF(cubed) 77.0 % % IVS thick 36.4 % % LVPW thick 13.5 % LV mass(C)d 309.6 grams LV mass(C)dI 167.9 grams/m\S\2 LV mass(C)s 227.6 grams LV mass(C)sI 123.4 grams/m\S\2 SV(Teich) 81.9 ml SI(Teich) 44.4 ml/m\S\2 SV(cubed) 97.0 ml SI(cubed) 52.6 ml/m\S\2 Ao root diam 3.0 cm Ao root area 7.1 cm\S\2 ACS 1.9 cm LA dimension 4.7 cm LA/Ao 1.6 LVOT diam 2.0 cm LVOT area 3.0 cm\S\2 LVAd ap4 34.5 cm\S\2 LVLd ap4 7.3 cm EDV(MOD-sp4) 132.8 ml EDV(sp4-el) 138.2 ml LVAs ap4 19.7 cm\S\2 LVLs ap4 5.7 cm ESV(MOD-sp4) 56.2 ml ESV(sp4-el) 58.0 ml EF(MOD-sp4) 57.7 % EF(sp4-el) 58.0 % LVAd ap2 36.2 cm\S\2 LVLd ap2 7.4 cm EDV(MOD-sp2) 146.8 ml EDV(sp2-el) 150.2 ml LVAs ap2 21.6 cm\S\2 LVLs ap2 6.0 cm ESV(MOD-sp2) 66.7 ml ESV(sp2-el) 66.4 ml EF(MOD-sp2) 54.6 % EF(sp2-el) 55.8 % LVLd %diff 1.3 % EDV(MOD-bp) 139.3 ml LVLs %diff 4.5 % ESV(MOD-bp) 61.8 ml EF(MOD-bp) 55.6 % SV(MOD-sp4) 76.6 ml SI(MOD-sp4) 41.6 ml/m\S\2 SV(MOD-sp2) 80.1 ml SI(MOD-sp2) 43.4 ml/m\S\2 SV(MOD-bp) 77.5 ml SI(MOD-bp) 42.0 ml/m\S\2 SV(sp4-el) 80.1 ml SI(sp4-el) 43.5 ml/m\S\2 SV(sp2-el) 83.8 ml SI(sp2-el) 45.5 ml/m\S\2 Doppler Measurements and Calculations MV E max luis alberto 130.5 cm/sec MV A max luis alberto 106.8 cm/sec MV E/A 1.2 MV P1/2t max luis alberto 145.4 cm/sec MV P1/2t 83.3 msec MVA(P1/2t) 2.6 cm\S\2 MV dec slope 511.5 cm/sec\S\2 MV dec time 0.17 sec Ao V2 max 169.1 cm/sec Ao max PG 11.4 mmHg Ao max PG (full) 9.2 mmHg JAYNE(V,A) 1.3 cm\S\2 JAYNE(V,D) 1.3 cm\S\2 LV V1 max PG 2.3 mmHg LV V1 max 75.5 cm/sec PA V2 max 82.8 cm/sec PA max PG 2.7 mmHg PI max luis alberto 157.0 cm/sec PI max PG 9.9 mmHg PI dec slope 153.6 cm/sec\S\2 PI P1/2t 299.2 msec TR max luis alberto 283.8 cm/sec
--- NOTE | 2018-01-04 13:09 | Cardiology Consultation ---
Cardiology Consultation Date of Consultation: Jan 04, 2018. Requesting Physician: Marco Reason for Consultation: Dyspnea Pt evaluation today including: conversation w/ patient, conversation w/ family , physical exam, chart review, lab review, review of studies, review of inpatient medication list, conversation w/ attending History of Present Illness The patient is an 87-year-old woman without a known cardiac history who was admitted to [facility] for symptoms of dyspnea and abnormal chest x-ray. It seems she approach her primary care physician approximately 1 week ago with complaints of progressive dyspnea. The chest x-ray was obtained at that time and she was scheduled for routine follow-up. Due to the persistent nature of her symptoms and continued abnormalities on an x-ray she was directed to the emergency room for evaluation. Patient was felt to have an element of pulmonary vascular congestion and admitted for observation. Patient does not speak Kyrgyz. Today's interview was facilitated by a relative. It seems the patient has had some element of dyspnea for at least several weeks. She also has some difficulty lying flat in bed due to breathing difficulty. The patient is relatively sedentary and according to her family spends most her time watching television and ambulating around the residence. She did report some element of chest discomfort recently but this appears to be fairly fleeting in nature and not associated with activity. It is unclear whether this is been prolonged in nature with the episodes themselves are fairly brief. Symptoms of dizziness or lightheadedness were not reported. She has not had any increased swelling in her lower extremities. 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 Noncontributory given her advanced age Social History Smoking Status: Never Smoker History of Alcohol Use: No Currently lives with family members. Born in [place] Review of Systems Per HPI. Allergies Coded Allergies: No Known Allergies (Verified , 01/03/18) Medications Current Inpatient Medications Medications (Trade) Dose Ordered Sig/Rody Route Start Time Stop Time Status Last Admin Dose Admin Lovastatin (Mevacor Tab) 40 mg PM PO 01/03/18 21:00 02/02/18 20:59 01/03/18 21:48 40 MG Furosemide 40 mg/ Syringe 4 ml @ 4 mls/min Q12H IV 01/03/18 21:00 02/02/18 20:59 01/04/18 08:51 4 MLS/MIN Heparin Sodium (Porcine) (Heparin Sq 5000 Unit/0.5ml) 5,000 unit Q8 SQ 01/04/18 06:00 02/03/18 05:59 01/04/18 05:47 5,000 UNIT Acetaminophen (Tylenol Tab) 650 mg Q4H PRN PO 01/03/18 19:30 02/02/18 19:29 Al Hydrox/Mg Hydrox/Simethicone (Maalox Max Susp) 15 ml Q4H PRN PO 01/03/18 19:30 02/02/18 19:29 Magnesium Hydroxide (Milk Of Magnesia Susp) 30 ml Q12H PRN PO 01/03/18 19:30 02/02/18 19:29 Zolpidem Tartrate (Ambien Tab) 5 mg HSZ PRN PO 01/03/18 19:30 02/02/18 19:29 Ondansetron HCl (Zofran Inj) 4 mg Q6H PRN IV 01/03/18 19:30 02/02/18 19:29 Nitroglycerin (Nitrostat Tab) 0.4 mg UD PRN SL 01/03/18 19:30 02/02/18 19:29 Aspirin (Ecotrin Tab) 81 mg QAM PO 01/04/18 09:00 02/03/18 08:59 01/04/18 08:51 81 MG Polyethylene (Miralax Powder Packet) 17 gm DAILY PRN PO 01/03/18 19:30 02/02/18 19:29 Potassium Chloride (Klor-Con M10) 10 meq BID PO 01/03/18 21:00 02/02/18 20:59 01/04/18 08:50 10 MEQ Lactobacillus Acidophilus (Floranex Tab) 4 tab TIDM PO 01/04/18 07:30 02/03/18 07:59 01/04/18 11:42 4 TAB Levofloxacin 250 mg/Prmx 50 ml @ 100 mls/hr Q24H IV 01/04/18 18:00 01/11/18 17:59 Hydralazine HCl (HydrALAZINE INJ) 15 mg Q8H PRN IV. 01/03/18 19:30 02/02/18 19:29 Metoprolol Tartrate (Lopressor Tab) 12.5 mg BID PO 01/03/18 21:00 02/02/18 20:59 01/04/18 08:50 12.5 MG Ipratropium Jerome (Atrovent 0.02% 0.5MG/2.5ML Neb) 0.5 mg Q6R INH 01/03/18 21:00 02/02/18 20:59 01/03/18 21:52 0.5 MG Levalbuterol (Xopenex 0.63 Mg/ 3 Ml Neb) 0.63 mg Q6R INH 01/03/18 21:00 02/02/18 20:59 01/03/18 21:52 0.63 MG Acetaminophen 650 mg/Empty Bag 65 ml @ 260 mls/hr Q6H PRN IV 01/04/18 00:00 02/03/18 00:00 01/04/18 00:22 260 MLS/HR Physical Exam Vital Signs Past 12 Hours Date Time Temp Pulse Resp B/P (MAP) Pulse Ox O2 Delivery O2 Flow Rate FiO2 01/04/18 08:47 36.4 64 22 137/77 (97) 97 Room Air 01/04/18 08:00 Room Air 01/04/18 03:25 37.0 76 18 162/76 (104) 96 Room Air 01/04/18 03:15 Room Air Data Laboratory Results: Last 24 Hours Test 01/03/18 16:37 01/03/18 17:27 01/03/18 17:35 01/03/18 17:43 White Blood Count 6.17 K/uL Red Blood Count 3.39 M/uL Hemoglobin 9.9 g/dL Hematocrit 31.3 % Mean Corpuscular Volume 92.3 fL Mean Corpuscular Hemoglobin 29.2 pg Mean Corpuscular Hemoglobin Concent 31.6 g/dl Platelet Count 216 K/uL Mean Platelet Volume 10.7 fL Neutrophils (%) (Auto) 53.9 % Lymphocytes (%) (Auto) 34.7 % Monocytes (%) (Auto) 8.9 % Eosinophils (%) (Auto) 1.9 % Basophils (%) (Auto) 0.3 % Neutrophils # (Auto) 3.32 K/uL Lymphocytes # (Auto) 2.14 K/uL Monocytes # (Auto) 0.55 K/uL Eosinophils # (Auto) 0.12 K/uL Basophils # (Auto) 0.02 K/uL RDW Standard Deviation 48.2 fL RDW Coefficient of Variation 14.8 % Immature Granulocyte % (Auto) 0.3 % Immature Granulocyte # (Auto) 0.02 K/uL Sodium Level 140 mmol/L Potassium Level mmol/L 4.7 mmol/L Chloride Level 107 mmol/L Carbon Dioxide Level 26 mmol/L Anion Gap 7.0 mmol/L Blood Urea Nitrogen 22 mg/dl Creatinine 0.88 mg/dl Est Creatinine Clear Calc Drug Dose 44.8 ml/min Estimated GFR () 68.5 Estimated GFR (Non- 59.1 BUN/Creatinine Ratio 25.3 Random Glucose 83 mg/dl Calcium Level 8.5 mg/dl Total Bilirubin 0.2 mg/dl Direct Bilirubin mg/dl < 0.1 mg/dl Aspartate Amino Transf (AST/SGOT) U/L 18 U/L Alanine Aminotransferase (ALT/SGPT) 24 U/L Alkaline Phosphatase 47 U/L Troponin I < 0.015 ng/ml Total Protein 6.9 gm/dl Albumin 3.4 gm/dl Lipase 223 U/L Urine Color YELLOW Urine Appearance CLEAR Urine pH 8.0 Urine Specific [place] 1.008 Urine Protein NEG Urine Glucose (UA) NEG Urine Ketones NEG Urine Occult Blood NEG Urine Nitrite NEG Urine Bilirubin NEG Urine Urobilinogen NEG Urine Leukocyte Esterase NEG Urine WBC (Auto) 1-5 /hpf Urine RBC (Auto) 0-4 /hpf Urine Hyaline Casts (Auto) 0 /lpf Urine Epithelial Cells (Auto) 0-5 /lpf Urine Bacteria (Auto) NEG Triglycerides Level 107 mg/dl Cholesterol Level 156 mg/dl HDL Cholesterol 59 mg/dl LDL Cholesterol, Calculated 76 mg/dl VLDL Cholesterol, Calculated 21 mg/dl Cholesterol/HDL Ratio 2.6 Test 01/03/18 21:03 01/03/18 21:25 01/04/18 01:11 01/04/18 07:10 Prothrombin Time 11.6 SECONDS Prothromb Time International Ratio 1.1 Activated Partial Thromboplast Time 24.4 SECONDS Partial Thromboplastin Ratio 0.9 Influenza Type A Antigen Neg for Influ A Influenza Type B Antigen Neg for Influ B Troponin I < 0.015 ng/ml < 0.015 ng/ml White Blood Count 5.22 K/uL Red Blood Count 3.27 M/uL Hemoglobin 9.5 g/dL Hematocrit 29.7 % Mean Corpuscular Volume 90.8 fL Mean Corpuscular Hemoglobin 29.1 pg Mean Corpuscular Hemoglobin Concent 32.0 g/dl Platelet Count 189 K/uL Mean Platelet Volume 9.9 fL Neutrophils (%) (Auto) 57.1 % Lymphocytes (%) (Auto) 31.0 % Monocytes (%) (Auto) 8.4 % Eosinophils (%) (Auto) 2.7 % Basophils (%) (Auto) 0.4 % Neutrophils # (Auto) 2.98 K/uL Lymphocytes # (Auto) 1.62 K/uL Monocytes # (Auto) 0.44 K/uL Eosinophils # (Auto) 0.14 K/uL Basophils # (Auto) 0.02 K/uL RDW Standard Deviation 48.2 fL RDW Coefficient of Variation 14.8 % Immature Granulocyte % (Auto) 0.4 % Immature Granulocyte # (Auto) 0.02 K/uL Sodium Level 139 mmol/L Potassium Level 4.4 mmol/L Chloride Level 107 mmol/L Carbon Dioxide Level 26 mmol/L Anion Gap 6.0 mmol/L Blood Urea Nitrogen 29 mg/dl Creatinine 0.93 mg/dl Est Creatinine Clear Calc Drug Dose 41.6 ml/min Estimated GFR () 64.0 Estimated GFR (Non- 55.3 BUN/Creatinine Ratio 31.7 Random Glucose 95 mg/dl Estimated Average Glucose 88 mg/dl Hemoglobin A1c 4.7 % Calcium Level 8.3 mg/dl Magnesium Level 2.4 mg/dl Total Bilirubin 0.3 mg/dl Aspartate Amino Transf (AST/SGOT) 16 U/L Alanine Aminotransferase (ALT/SGPT) 22 U/L Alkaline Phosphatase 46 U/L Total Protein 6.5 gm/dl Albumin 3.0 gm/dl Globulin 3.5 gm/dl Albumin/Globulin Ratio 0.9 Imaging: Chest x-ray suggesting an element of pulmonary vascular congestion. Abdominal ultrasound which did not reveal any evidence of cholelithiasis EKG: Normal sinus rhythm. Normal EKG Telemetry reviewed: No arrhythmia Echocardiogram demonstrated preserved LV systolic function. At least moderate mitral regurgitation with a prolapsing posterior segment Assessment & Plan 1. Dyspnea: She likely has an element of pulmonary vascular congestion. She certainly has some mitral regurgitation the severity of which is unclear based on her echocardiogram. She was notably hypertensive and would likely benefit from an element of diuresis and better blood pressure control. This may improve her symptoms significantly. I think she deserves a more thorough evaluation of her mitral regurgitation which. I suggested a transesophageal echocardiogram to the patient and her granddaughter. They will consider getting this performed either as an inpatient or outpatient. Further evaluations predicated upon her agreement to surgical intervention if necessary.
[2018-01-04 13:22] VITALS: BP 127/68; PULSE 66; TEMP 36.6; O2SAT 98
[2018-01-04] MEDS ORDERED: LSX20 PO (13:50)
[2018-01-04] MEDS ORDERED: POTA10CA28 PO (13:50)
[2018-01-04] MEDS ORDERED: AMOX875T PO (13:50)
[2018-01-04] MEDS ORDERED: LISI-461 PO (13:50)
[2018-01-04] MEDS ORDERED: LPR25 PO (13:50)
[2018-01-04] MEDS ORDERED: ASPEC81 PO (13:50)
[2018-01-04] MEDS ORDERED: LCTX PO (13:50)
--- NOTE | 2018-01-04 13:53 | Discharge Instructions ---
Discharge Instructions Date of Service Jan 04, 2018. Admission Reason for Admission: CHF Discharge Discharge Diagnosis / Problem: Congestive Heart Failure likey from mitral valve regurgitation Discharge Goals Goal(s): Decrease discomfort, Improve function Activity Recommendations Activity Limitations: resume your previous activity . Instructions / Follow-Up Instructions / Follow-Up Followup with PCP in 1-2 weeks Followup with Cardiology for [facility]. Office will contact patient. Current Hospital Diet Patient's current hospital diet: AHA Diet (Heart Healthy), Vegetarian Diet Discharge Diet Recommended Diet: AHA Diet (Heart Healthy), Vegetarian Diet Pending Studies Studies pending at discharge: no Laboratory Results Hemoglobin A1c Test 01/04/18 07:10 Range/Units Estimated Average Glucose 88 mg/dl Hemoglobin A1c 4.7 4.5-5.6 % Lipid Panel Test 01/03/18 17:35 Range/Units Triglycerides Level 107 0-150 mg/dl Cholesterol Level 156 0-200 mg/dl HDL Cholesterol 59 mg/dl Cholesterol/HDL Ratio 2.6 LDL Cholesterol, Calculated 76 mg/dl Medical Emergencies . Who to Call and When: Medical Emergencies: If at any time you feel your situation is an emergency, please call 911 immediately. . Non-Emergent Contact Non-Emergency issues call your: Primary Care Provider Call Non-Emergent contact if: you have any medication questions . . "Provider Documentation" section prepared by Nahum Lara. . VTE Core Measure Inpt VTE Proph given/why not?: Unfractionated heparin VLADIMIR, TTwilaEHarman Templeings, SCD 's
[2018-01-04 14:25] VITALS: PULSE 67; O2SAT 96
[2018-01-04 15:15] VITALS: BP 127/68; PULSE 67; TEMP 36.6; O2SAT 96
[2018-01-04] MEDS ORDERED: LEVOFLOXACIN / D5W 250 MG in PREMIXED IN D5W 50 ML IV SCH (18:00)
== END 2018-01-04 16:20 | disposition home or self-care (01) | DRG 292 ==
LOC: C.EDB 15:00 → C.2T 19:41 → ENRESERV 19:53
PROVIDERS: ADMIT Internal Medicine; ATTEND Internal Medicine Sports Medicine
DX: I11.0 Hypertensive heart disease with heart failure (principal); J98.11 Atelectasis; I50.33 Acute on chronic diastolic (congestive) heart failure; I16.0 Hypertensive urgency; J20.9 Acute bronchitis, unspecified; R07.9 Chest pain, unspecified; R06.00 Dyspnea, unspecified; R25.2 Cramp and spasm; I34.0 Nonrheumatic mitral (valve) insufficiency; D50.0 Iron deficiency anemia secondary to blood loss (chronic); K55.20 Angiodysplasia of colon without hemorrhage; E78.00 Pure hypercholesterolemia, unspecified; E78.5 Hyperlipidemia, unspecified; G47.33 Obstructive sleep apnea (adult) (pediatric); E66.01 Morbid (severe) obesity due to excess calories; Z68.34 Body mass index [BMI] 34.0-34.9, adult; Z23 Encounter for immunization; Z96.659 Presence of unspecified artificial knee joint; Z79.899 Other long term (current) drug therapy

== ENCOUNTER → 2018-01-20 | Outpatient (CLI) | payer OTHER ==
[~2018-01-20] VITALS: Ht 154.9 cm; Wt 82.0 kg
[~2018-01-20] MED LIST changes: +ASPEC81 PO; +BENZOCAIN/TETRACA/BUTAM SPRAY 200 APPLN/20 GM SPRY ONE; -CALC-393 PO; +CANNULA ONE; +FENTANYL CITRATE INJ 50 MCG/1 ML 2 ML VIAL ONE; -FERR1TAB13 PO; -GLUC1CAP32 PO; +LCTX PO; -LINA1CAP2 PO; +LISI-461 PO; +LPR25 PO; +LSX20 PO; +MIDAZOLAM HCL 1 MG/ML 2ML VIAL ONE; -PANT40TA PO; +POTA10CA28 PO
[2018-01-20 08:14] VITALS: BP 133/58; PULSE 57; TEMP 36.8; O2SAT 98; Ht 154.9 cm; Wt 82.0 kg
--- NOTE | 2018-01-20 08:44 | History & Physical Bridge Note ---
H&P Re-Evaluation Bridge Note: I have examined the patient, reviewed the History & Physical and in the interval since the performance of the History & Physical I have noted the following changes of clinical significance: No changes noted
--- NOTE | 2018-01-20 08:45 | Pre Sedation Assessment ---
Pre Sedation Assessment General Date of Sedation: Jan 20, 2018. Vital Signs Past 12 Hours Date Time Temp Pulse Resp B/P (MAP) Pulse Ox O2 Delivery O2 Flow Rate FiO2 01/20/18 08:14 36.8 57 12 133/58 (83) 98 Room Air Review Cardiovascular: regular rate, rhythm Pre-Sedation Airway Assessment Smoking Status: Never Smoker Hx of Sleep Apnea: Yes Short Thick Neck: Yes Thyro-mental Distance: > 3 Finger Breadths Oral Cavity: Capped Teeth Mallampati Classification: Class III ASA Classification: Class III NPO Status Date of Last Intake of Fluids: Jan 19, 2018 Time of Last Intake of Fluids: 2358 Date of Last Intake of Solids: Jan 19, 2018 Time of Last Intake of Solids: 2358 Procedure Planning Contraindications for Sedation: None Current Medications Reviewed: Yes Notes The planned sedation has been discussed with the patient. Informed Consent was obtained. I have identified the patient, determined the appropriateness of sedation and have assessed the patient immediately prior to the procedure. All medicine(s) and interventions are by my order.
[2018-01-20 08:54] VITALS: BP 158/56; PULSE 76; O2SAT 100
[2018-01-20 08:57] VITALS: BP 155/62; PULSE 69; O2SAT 100
[2018-01-20 09:00] VITALS: BP 175/64; PULSE 72; O2SAT 100
[2018-01-20 09:05] VITALS: BP 161/95; PULSE 73; O2SAT 99
[2018-01-20 09:36] VITALS: BP 124/50; PULSE 56; O2SAT 95
--- NOTE | 2018-01-20 09:43 | Discharge Instructions ---
Discharge Instructions Procedure Procedure Date: Jan 20, 2018. Reason for Visit: Chest Pain *Cindy *Pt Needs Ent Consultant/Cory*. Discharge Discharge Date: Jan 20, 2018. Discharge Diagnosis: Mitral regurgitation Last Recorded Wt (Kilograms): 82.000 Anesthesia Post Anesthesia Instructions: If you have had General Anesthesia or IV Sedation: * Do not drive today. * Resume driving when surgeon permits. * Do not make important decisions or sign legal documents today. * Call surgeon for: 1. Temperature elevations greater than 101 degrees F. 2. Uncontrollable pain. 3. Excessive bleeding. 4. Persistent nausea and vomiting. 5. Medication intolerance (nausea, vomiting or rash). * For nausea and vomiting use only clear liquids such as: tea, soda, bouillon until nausea subsides, then gradually increase diet as tolerated. * If you have any concerns or questions, call your surgeon's office. If physician is unavailable and it is an emergency, call 911 or go to the nearest emergency room. Instructions Activity Recommendations: driving or machine use limit Return to School/Work: with the following limitations Recommended Home Diet: resume previous diet Allergies: Coded Allergies: No Known Allergies (Verified , 01/03/18) Provider Instructions No driving for 24 hours Follow Up Joanie Sapp Recommendations: Call your doctor if: * Temperature above 101 degrees * Pain not relieved by pain medicine ordered * There is increased drainage or redness from any incision * You have any unanswered questions or concerns. Your Doctors Instructions noted above were prepared by provider Rajeev White. Patient Signature Section: Patient Instructions Signature Page Lucy Wray Patient (or Guardian) Signature/Date: I have read and understand the instructions given to me by my caregivers. Caregiver/RN/Doctor Signature/Date: The above-named patient and/or guardian has received patient instructions on this date. + Original Patient Signature Page (only) stays with chart. Please make copy for patient.
--- NOTE | 2018-01-20 13:41 | TEE ---
*NOTICE TO RECEIVING CONSTITUTION PARTY AGENCY This information is strictly Confidential and protected under [place] law. [place] law prohibits you from making any further disclosure of this information unless further disclosure is expressly permitted by the written consent of the person to whom it pertains or is authorized by law. A general authorization for the release of medical or other information is not sufficient for this purpose. Hospital accepts no responsibility if the information is made available to any other person, INCLUDING THE PATIENT. Interpretation Summary * Name: JANNIE HUFF Study Date: 01/20/2018 08:08 AM BP: 133/58 mmHg * Patient Location: [facility] HR: 66 * : 1930 (M/d/yyyy) Gender: Female Height: 61 in * Age: 87 yrs Ethnicity: Weight: 182 lb * Referring Physician: ENRIQUETA NEELY MD * Performed By: [employer] [facility] * * Reason For Study: CHEST PAIN / MITRAL REGURGITATION * BSA: 1.8 m2 * -- Conclusions -- * The left atrium is moderately dilated. * The right atrium is mildly dilated. * At least moderate and possibly severe mitral regurgitation * The mitral regurgitant jet is eccentrically directed. Procedure Details * KAYDEN PROBE #3 was utilized for the procedure. START TIME: 853 END TIME: 905 * The study was performed in Cardiopulmonary Department. * Time out was conducted by the physician, nurse, and technical instructor course developer with positive identification of patient and procedure. * Informed consent for Transesophageal Echocardiogram was obtained prior to the procedure. * An intravenous line was placed. A topical anesthetic agent was used for oropharangeal anesthesia. A bite block was inserted. * The patient's vital signs, including blood pressure, heart rate, pulse oximetry and cardiac rhythm were monitored throughout the procedure . * Fentanyl 25 mcg was administered for procedural sedation. * Midazolam 1 mg administered for sedation. * The posterior oropharynx was anesthetized using a topical anesthetic spray. A bite guard was inserted. * A multifrequency, multiplane transesopheageal echocardiographic endoscope was inserted and manipulated in the standard fashion to achieve multiplane views. * The transesophageal probe was passed without difficulty. * The patient tolerated the procedure well without evidence of orophangeal or esophageal trauma. * A 2D transesophageal echocardiogram with spectral and color flow Doppler was performed. * A 2D transesophageal echocardiogram with Doppler and color flow Doppler was performed. Left Ventricle * The left ventricle is grossly normal size. Atria * The left atrium is moderately dilated. * No thrombus is detected in the left atrial appendage. * The right atrium is mildly dilated. Mitral Valve * There is prolapse of a segment of the anterior leaflet of the mitral valve at the coaptation * At least moderate and possibly severe mitral regurgitation * The mitral regurgitant jet is eccentrically directed. Tricuspid Valve * The tricuspid valve is not well visualized, but is grossly normal. Aortic Valve * The aortic valve is normal in structure and function. * The aortic valve is trileaflet. * No hemodynamically significant valvular aortic stenosis. * There is no significant aortic regurgitation. Pericardium * There is no pericardial effusion.
== END | disposition home or self-care (01) ==
LOC: C.CPL 07:01
PROVIDERS: ATTEND Internal Medicine Clinical Cardiac Electrophysiology
DX: I34.0 Nonrheumatic mitral (valve) insufficiency (principal)

== ENCOUNTER → 2018-02-15 | Outpatient (CLI) | payer OTHER ==
[~2018-02-15] MED LIST changes: -BENZOCAIN/TETRACA/BUTAM SPRAY 200 APPLN/20 GM SPRY ONE; -CANNULA ONE; -FENTANYL CITRATE INJ 50 MCG/1 ML 2 ML VIAL ONE; -MIDAZOLAM HCL 1 MG/ML 2ML VIAL ONE
--- NOTE | 2018-02-15 11:12 | DIAGNOSTIC IMAGING REPORT ---
TWO VIEW CHEST CLINICAL HISTORY: Cough. FINDINGS: PA and lateral chest radiographs are compared to study dated 01/03/2018. Correlation is made with chest CT dated 01/25/2008. The PA view is degraded by patient rotation. The heart is mildly enlarged and there is atherosclerotic calcification of the thoracic aorta. The pulmonary vasculature is noncongested. Chronic interstitial thickening is unchanged. There is mild bibasilar atelectasis. No airspace consolidation or pleural effusion is identified. There is no pneumothorax. The skeletal structures are osteopenic. Degenerative change and scoliosis are noted in the thoracic spine. Fusion hardware is partially imaged in the upper lumbar spine. IMPRESSION: Cardiomegaly with no acute cardiopulmonary abnormality. Electronically signed by: Colby Cortez M.D. 02/15/2018 11:11 AM Dictated Date/Time: 02/15/2018 11:09 AM
[2018-02-15 12:21] LABS: BASO % 0.3 %; BASO ABS # 0.02 K/uL (0-0.2); EOS % 2.6 %; EOS ABS # 0.15 K/uL (0-0.5); HEMATOCRIT 26.4 % (37-47); HEMOGLOBIN 8.1 g/dL (12.0-16.0); IG# 0.02 K/uL (0.00-0.02); LYMPH % 28.6 %; LYMPH ABS # 1.66 K/uL (1.2-3.4); MEAN CELL VOLUME 95.3 fL (80-100); MEAN CORPUSCULAR HEMOGLOBIN 29.2 pg (25-34); MEAN CORPUSCULAR HGB CONC 30.7 g/dl (32-36); MEAN PLATELET VOLUME 10.2 fL (7.4-10.4); MONO % 8.8 %; MONO ABS # 0.51 K/uL (0.11-0.59); NEUT % 59.4 %; NEUT ABS # 3.45 K/uL (1.4-6.5); PLATELET COUNT 256 K/uL (130-400); RED CELL DISTRIBUTION WIDTH CV 16.3 % (11.5-14.5); WHITE BLOOD COUNT 5.81 K/uL (4.8-10.8)
[2018-02-15 12:57] LABS: ALBUMIN 3.3 gm/dl (3.4-5.0); ALT/SGPT 22 U/L (12-78); BLOOD UREA NITROGEN 24 mg/dl (7-18); CALCIUM 8.4 mg/dl (8.5-10.1); CARBON DIOXIDE 26 mmol/L (21-32); CHOLESTEROL 169 mg/dl (0-200); CREATININE 1.18 mg/dl (0.60-1.20); GLUCOSE 79 mg/dl (70-99); POTASSIUM 5.3 mmol/L (3.5-5.1); SODIUM 139 mmol/L (136-145)
[2018-02-15 13:07] LABS: ALKALINE PHOSPHATASE 47 U/L (45-117); AST/SGOT 13 U/L (15-37); LDL CHOLESTEROL CALCULATED 71 mg/dl; TOTAL PROTEIN 6.7 gm/dl (6.4-8.2)
== END | disposition home or self-care (01) ==
LOC: C.RAD1850 10:26
PROVIDERS: ATTEND Internal Medicine
DX: E78.5 Hyperlipidemia, unspecified (principal); D64.9 Anemia, unspecified; I34.0 Nonrheumatic mitral (valve) insufficiency; R05 Cough; I51.7 Cardiomegaly

== ENCOUNTER → 2018-02-28 | Outpatient (CLI) | payer OTHER ==
[~2018-02-28] MED LIST changes: -ASPEC81 PO; +ASPI-320 PO
[2018-02-28 13:22] LABS: HEMATOCRIT 27.3 % (37-47); HEMOGLOBIN 8.3 g/dL (12.0-16.0); MEAN CELL VOLUME 95.5 fL (80-100); MEAN CORPUSCULAR HGB CONC 30.4 g/dl (32-36); MEAN PLATELET VOLUME 10.2 fL (7.4-10.4); PLATELET COUNT 213 K/uL (130-400); RED CELL DISTRIBUTION WIDTH CV 15.2 % (11.5-14.5); WHITE BLOOD COUNT 5.52 K/uL (4.8-10.8)
[2018-02-28 14:11] LABS: BLOOD UREA NITROGEN 24 mg/dl (7-18); CALCIUM 8.7 mg/dl (8.5-10.1); CARBON DIOXIDE 26 mmol/L (21-32); CREATININE 1.12 mg/dl (0.60-1.20); GLUCOSE 82 mg/dl (70-99); POTASSIUM 4.8 mmol/L (3.5-5.1); SODIUM 140 mmol/L (136-145)
== END | disposition home or self-care (01) ==
LOC: C.LAB1850 11:49
PROVIDERS: ATTEND Internal Medicine
DX: D64.9 Anemia, unspecified (principal)

== ENCOUNTER → 2018-06-21 | Outpatient (CLI) | payer OTHER ==
[~2018-06-21] MED LIST changes: +ACET-1256 PO
[2018-06-21 09:36] LABS: BASO % 0.5 %; BASO ABS # 0.02 K/uL (0-0.2); EOS % 3.7 %; EOS ABS # 0.15 K/uL (0-0.5); HEMATOCRIT 35.1 % (37-47); HEMOGLOBIN 10.9 g/dL (12.0-16.0); IG# 0.01 K/uL (0.00-0.02); LYMPH % 32.5 %; LYMPH ABS # 1.33 K/uL (1.2-3.4); MEAN CELL VOLUME 88.2 fL (80-100); MEAN CORPUSCULAR HEMOGLOBIN 27.4 pg (25-34); MEAN CORPUSCULAR HGB CONC 31.1 g/dl (32-36); MEAN PLATELET VOLUME 10.6 fL (7.4-10.4); MONO % 8.8 %; MONO ABS # 0.36 K/uL (0.11-0.59); NEUT % 54.3 %; NEUT ABS # 2.22 K/uL (1.4-6.5); PLATELET COUNT 196 K/uL (130-400); RED CELL DISTRIBUTION WIDTH CV 14.9 % (11.5-14.5); RED CELL DISTRIBUTION WIDTH SD 47.9 fL (36.4-46.3); WHITE BLOOD COUNT 4.09 K/uL (4.8-10.8)
[2018-06-21 09:48] LABS: BLOOD UREA NITROGEN 20 mg/dl (7-18); CALCIUM 8.5 mg/dl (8.5-10.1); CARBON DIOXIDE 26 mmol/L (21-32); CREATININE 1.07 mg/dl (0.60-1.20); GLUCOSE 115 mg/dl (70-99); POTASSIUM 4.7 mmol/L (3.5-5.1); SODIUM 142 mmol/L (136-145)
--- NOTE | 2018-06-21 13:39 | DIAGNOSTIC IMAGING REPORT ---
CHEST 2 VIEWS ROUTINE CLINICAL HISTORY: R05 COUGH COMPARISON STUDY: 05/11/2018 FINDINGS: The heart is enlarged. There is aortic tortuosity/ectasia. There is stable interstitial thickening. There is no lobar consolidation. There is a surgical clip projected over the right paratracheal region. On the PA film there is a metallic density projected over the heart. This is not visualized on the lateral view and may be extraneous to the patient IMPRESSION: Cardiomegaly and stable interstitial thickening. No evidence of acute parenchymal consolidation Electronically signed by: Wili Rios M.D. 06/21/2018 1:38 PM Dictated Date/Time: 06/21/2018 1:36 PM
--- NOTE | 2018-06-21 14:08 | DIAGNOSTIC IMAGING REPORT ---
KUB CLINICAL HISTORY: Constipation. FINDINGS: 3 AP supine abdominal radiographs are correlated with abdominal CT dated 10/31/2016. There is a nonobstructed abdominal bowel gas pattern noting moderate to severe constipation. No evidence of intraperitoneal free air is seen on these supine images. There is no radiographic evidence of nephrolithiasis. Numerous phleboliths are observed in the pelvis. The skeletal structures are osteopenic. There is lumbosacral spondylosis and scoliosis with postlaminectomy change. The bony pelvis is intact as imaged. IMPRESSION: Nonobstructed bowel gas pattern noting moderate to severe constipation. Electronically signed by: Colby Cortez M.D. 06/21/2018 2:07 PM Dictated Date/Time: 06/21/2018 2:06 PM
== END | disposition home or self-care (01) ==
LOC: C.RAD1850 07:36
PROVIDERS: ATTEND Internal Medicine
DX: K59.00 Constipation, unspecified (principal); R05 Cough; R10.9 Unspecified abdominal pain; D64.9 Anemia, unspecified

== ENCOUNTER 2019-01-27 09:32 | Inpatient (IN) ==
[2019-01-27] MEDS ORDERED: MoRPHine SULFATE 4 MG/ML 1 ML CARP\\VIAL IV STA (10:07)
[2019-01-27] MEDS ORDERED: ACETAMINOPHEN 500 MG TAB PO STA (10:07)
[2019-01-27] MEDS ORDERED: SODIUM CHLORIDE 0.9% 500 ML IV SCH (10:15)
[2019-01-27 10:26] LABS: Alanine Aminotransferase 12 U/L (12-78); Aspartate Aminotransferase 8 U/L (15-37); BUN Creatinine Ratio 17.3 (10-20); Blood Urea Nitrogen 20 mg/dl (7-18); Calcium 8.3 mg/dl (8.5-10.1); Carbon Dioxide 26 mmol/L (21-32); Chloride 104 mmol/L (98-107); Creatinine Clr Calc Pharmacy 35.6 ml/min; Est GFR (African American) 50.3; Est GFR (Non-African American) 43.4; Glucose 89 mg/dl (70-99); Magnesium 2.4 mg/dl (1.8-2.4); Potassium 4.6 mmol/L (3.5-5.1); Sodium 138 mmol/L (136-145)
[2019-01-27 10:31] LABS: INR 1.2 (0.9-1.1)
--- NOTE | 2019-01-27 10:33 | XRay Report ---
XR chest 1V portable HISTORY: 88 years-old Female weakness acute weakness with chest burning COMPARISON: Chest radiograph 12/20/2018 TECHNIQUE: Portable AP view of the chest FINDINGS: Cardiac silhouette is enlarged. Pulmonary vascular congestion with mild interstitial coarsening. No p neumothorax. Mild blunting of the cost phrenic angles is unchanged. Subsegmental bibasilar opacities. Metallic radial densities about the right hilar distribution and left cardiophrenic angle are unchan ged. Degenerative changes are noted about the shoulders and spine. Remote fracture of the right clavi rigoberto. Stable levoscoliosis. IMPRESSION: 1. Cardiomegaly with pulmonary vascular congestion and interstitial coarsening suggestive of mild pul monary edema. 2. Bibasilar opacities suggest atelectasis. The above report was generated using voice recognition software. It may contain grammatical, syntax o r spelling errors. Electronically signed by: Brandon Slade M.D. 01/27/2019 10:32 AM
[2019-01-27 10:37] LABS: Albumin Globulin Ratio 0.8 (0.9-2); Alkaline Phosphatase 56 U/L (45-117); Bilirubin,Total 0.3 mg/dl (0.2-1); Globulin 3.7 gm/dl (2.5-4.0); Total Protein 6.7 gm/dl (6.4-8.2); Troponin I < 0.015 ng/ml (0-0.045)
[2019-01-27 10:39] LABS: iSTAT Creatinine 1.1 mg/dl (0.6-1.3); iSTAT Hemoglobin 5.1 g/dl (12.0-16.0); iSTAT Ionized Calcium 1.16 mmol/l (1.12-1.32); iSTAT Potassium 4.6 mEq/L (3.3-5.0)
[2019-01-27 10:40] LABS: Hematocrit (blood only) 16.2 % (37-47); Hemoglobin 4.4 g/dL (12.0-16.0); Mean Corpuscular Hgb Conc 27.2 g/dL (32-36); Mean Corpuscular Volume 66.1 fL (80-100); Nucleated RBC # (auto) 0.12 K/uL (0-0); Nucleated RBC % (auto) 1.8 %; Platelet Count 303 K/uL (130-400); Red Blood Count 2.45 M/uL (4.2-5.4); White Blood Count 6.65 K/uL (4.8-10.8)
[2019-01-27] MEDS ORDERED: SODIUM CHLORIDE 0.9% 250 ML IV PRN ×2 (10:48→14:25)
[2019-01-27] MEDS ORDERED: PANTOPRAZOLE BOLUS/DRIP 1 EA IV STA (10:48)
[2019-01-27] MEDS ORDERED: PANTOprazole 80 MG in DEXTROSE 5% 100 ML IV ONE (10:48)
[2019-01-27 10:50] LABS: T4 Free Thyroxine 0.95 ng/dl (0.8-1.6)
[2019-01-27 10:57] LABS: Basophils # (auto) 0.02 K/uL (0-0.2); Basophils % (auto) 0.3 %; Eosinophils # (auto) 0.04 K/uL (0-0.5); Eosinophils % (auto) 0.6 %; Hypochromasia Present; Immature Granulocytes # (auto) 0.04 K/uL (0.00-0.02); Immature Granulocytes % (auto) 0.6 %; Lymphocytes % (auto) 16.5 %; Monocytes # (auto) 0.83 K/uL (0.11-0.59); Monocytes % (auto) 12.5 %; Neutrophils # (auto) 4.62 K/uL (1.4-6.5); Neutrophils % (auto) 69.5 %; Ovalocytes 1+; Polychromasia 1+; Schistocytes 1+; Toxic Granulation 1+; Toxic Vacuolation 1+
[2019-01-27] MEDS ORDERED: PANTOprazole 40 MG in DEXTROSE 5% 100 ML IV SCH (11:00)
[2019-01-27] MEDS ORDERED: OPTIRAY 320 125ml IV PRN (11:11)
--- NOTE | 2019-01-27 11:29 | CT Scan Report ---
CT angio chest dissec wo/w con HISTORY: 88 years-old Female low hgb, back pain acute anemia with low back pain COMPARISON: CTA abdomen and pelvis of same day, CTA chest 01/25/2008, CT abdomen and pelvis 10/31/2016. TECHNIQUE: CTA of the chest was obtained both with and without the use of 119 mL Optiray 320 IV contr ast. 3-D coronal and sagittal MIPS were obtained from the axial data set and were submitted for revie w. All measurements were obtained according to NASCET criteria. A dose lowering technique was used co nsistent with the principals steve MONTENEGRO. FINDINGS: Control Chemist localizer images demonstrate the lumbar sigmoidal scoliosis. Fusion hardware of the lower lumba r spine. CTA: Moderate multichamber cardiac enlargement with coronary arterial calcifications and small pericardial effusion, most pronounced about the superior pericardial recess. Prosthetic device about the mitral valve noted. No thoracic aortic aneurysm or dissection. Imaged proximal great vessels appear to be pa tent. Decreased attenuation of the cardiac blood pole suggests anemia. The noncontrast scan demonstra carrie no intramural hematoma or mediastinal hematoma. The pulmonary arterial tree appears unremarkable without evidence of pulmonary thromboembolic disease . The segmental and subsegmental branches however are suboptimally visualized secondary to respirator y motion artifact. CT CHEST: Enlarged multinodular goiter with thyroid nodules measuring up to 1.6 cm on the left. Nonspecific mil dly enlarged calcified subcarinal lymph nodes suggest prior granulomatous disease. Trace left and small right pleural effusions. No pneumothorax. 4 mm subpleural nodule of the right up per lobe is seen on image 71 series 7, unchanged from comparison suggesting a benign etiology. Mild b ilateral intralobular thickening is noted with dependent groundglass densities. Minimal bibasilar dep endent consolidation suggests compressive atelectasis. There is thickening of the bronchovascular bun dles. No definite evidence of pneumonia. 4 mm solid nodule of the lateral segment right middle lobe, unchanged from 2016. Evaluation of the lung parenchyma is limited secondary to respiratory motion art ifact. Central airways appear to be patent. No acute process about the imaged upper abdomen. Fluid noted about the distal esophagus. The soft tis sues appear to be unremarkable. Degenerative changes are seen about the shoulders and spine. IMPRESSION: 1. Moderate cardiomegaly with small pericardial effusion, trace left and small right pleural effusion s. 2. Mild pulmonary edema with subsegmental bibasilar consolidation suggestive of atelectasis. 3. No evidence of acute aortic pathology or pulmonary thromboembolic disease. 4. Decreased attenuation of the cardiac blood pool suggestive of anemia. 5. Additional findings as above. The above report was generated using voice recognition software. It may contain grammatical, syntax o r spelling errors. Electronically signed by: Brandon Slade M.D. 01/27/2019 11:27 AM
--- NOTE | 2019-01-27 11:50 | CT Scan Report ---
CT angio abdomen pelvis w con CLINICAL HISTORY: 88 years-old Female presenting with low hgb, back pain. TECHNIQUE: Multidetector CT angiography of the abdomen and pelvis was performed after the administrat ion of intravenous contrast. 3-D volumetric and/or maximum intensity projection (MIP) images were sub sequently reconstructed for review. IV contrast: 119 mL of Optiray 320. One or more dose lowering candelario hniques were used consistent with the principles of ALARA (as low as reasonably achievable), includin g automatic exposure control, mA or kV adjustment to individual patient size, and/or use of iterative reconstruction. Stenosis measurements were based on NASCET-like criteria (distal lumen diameter as t he denominator for stenosis measurement). COMPARISON: 09/20/2018. CT DOSE (mGy.cm): The estimated cumulative dose is 1845.14. FINDINGS: Manager Stylist topogram: Lumbar fusion hardware. S-shaped scoliotic curvature of the spine. Vasculature: Calcified atherosclerotic plaque throughout the normal caliber abdominal aorta. Plaque also noted at the origins of the major branch vessels with the greatest degree of stenosis noted at the origin of t he superior mesenteric artery, which is suspected to be at least 50%. The heavily calcified degree of the plaque makes accurate assessment difficult. Bilateral single main renal arteries patent despite plaque at the origin of the right renal artery. Mild ectasia of the right common iliac artery with a diameter of 1.5 cm. Bilateral common, internal, and external iliac arteries widely patent. Early bran cruz of the right common femoral artery. Bilateral common, superficial, and deep femoral arteries pa tent. Remaining abdomen and pelvis: Lung bases: Surgical clip in the region of the mitral valve, which has been present since May 2018. Multichamber enlargement of the heart. Small right and trace left pleural effusions. These are new fr om prior. Dependent changes in the lungs likely atelectasis. Liver: Normal morphology. No liver lesion allowing for the early arterial phase of contrast. Replaced left hepatic artery arising from the left gastric artery. Biliary: No intrahepatic or extrahepatic biliary ductal dilatation. Normal gallbladder. Pancreas: Normal. Spleen: Normal. Adrenal glands: Normal. Kidneys and ureters: Normal. No hydronephrosis. Bladder: Normal. Pelvic organs: Uterus normal. Cysts noted in the left ovary unchanged from prior though atypical for the patient's age. This is benign-appearing and measures less than 3 cm. Bowel: Diverticulosis of the proximal to mid sigmoid colon and distal descending colon without wall t hickening or pericolonic inflammatory change. The appendix is absent. No bowel obstruction. Peritoneal cavity: No free fluid or intraperitoneal gas. Lymph nodes: No enlarged lymph nodes in the abdomen or pelvis. Abdominal wall: Postsurgical changes of the midline ventral abdomen with a prosthetic mesh in place. Small fat-containing ventral hernia with a peritoneal defect of 1.5 cm and a hernia sac diameter of a pproximately 5 cm in the epigastrium. This is at the superior margin of the prosthetic mesh. Small fa t-containing hernias superficial to the mesh more inferiorly. No associated fluid. Musculoskeletal: Degenerative changes of the spine. Bilateral transpedicular screw and sachin fixation o f L4-5. Degenerative changes of the sacroiliac joints and pubic symphysis. IMPRESSION: 1. No evidence of abdominal aortic aneurysm or acute aortic injury. Patent vasculature despite exten sive calcified atherosclerotic plaque. 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 2. Surgical clip in the region of mitral valve present since May 2018. Correlate for a cardiac inte rvention versus unintended embolization. This has not changed since May. 3. Diverticulosis coli. No diverticulitis. 4. Fat-containing epigastric hernia as on prior exam along the superior margin of the prostatic mesh in the setting of prior ventral hernia repair. 5. New small right and trace left pleural effusions in the setting of cardiomegaly. Electronically signed by: Marcello Mcdaniels M.D. 01/27/2019 11:49 AM
[2019-01-27 12:30] LABS: Appearance Urine Clear (Clear); Bacteria Urine Automated Negative (Negative); Bilirubin Urine Negative (Negative); Blood Urine Negative (Negative); Color Urine Yellow; Glucose Urine UA Negative (Negative); Ketones Urine Negative (Negative); Leukocyte Esterase Urine Trace (Negative); Nitrite Urine Negative (Negative); Protein Urine Negative (Negative); RBC Urine Automated 0-4 /hpf (0-4); Specific Gravity Urine 1.032 (1.000-1.030); Urobilinogen Urine Negative (Negative)
--- NOTE | 2019-01-27 13:37 | History & Physical Report ---
Date of Service January 27, 2019 Assessment & Plan (1) GI bleed: 88 y/o F Hx HTN, HLD, obese, pulmonary edema following transfusion, hemorrhoids and colonic AVM leading to GI bleed x 2. She was admitted for a LGI bled 12/2017 and required a colonoscopy/cauterization. The pt presents with a chief complaint of SOB over the last few days. She denies CP and was not lightheaded. She did not notice gross blood in her stool and does not describe black stool. Initial labs on arrival to the ER were notable for a hemoglobin of 5.1. A rectal exam was heme+. The pt does not speak Irish. Granddaughter at bedside translated from [place]. 1) GI bleed/symptomatic anemia - GI consulted - will be transfused 4 units eventually. Placed on IV Lasix with transfusions due to history of pulmonary edema. We will keep her NPO - she may require a prep if a scope is planned the following day. PPi provided in the eent that an AVM is not the current source 2) HTN - she can remain on Metoprolol and Diovan with parameters. It is noted that she has both Diovan and Lisinopril on her med list which should likely be addressed prior to DC. 3) HLD - cont statin 4) She takes daily Lasix - she will receive a total of 60mg IV additional with her transfusions. She can be reassessed for PO Lasix resumption AM. Full code - SCDs Total time for this admit including review of labs, meds, records - discussion with pt, daughter and ER attending - 38 min Present on Admission?: Yes History of Present Illness Chief Complaint: GI bleed Primary Care Provider: Maximus Diaz MD 88 y/o F Hx HTN, HLD, obese, pulmonary edema following transfusion, hemorrhoids and colonic AVM leading to GI bleed x 2. She was admitted for a LGI bled 12/2017 and required a colonoscopy/cauterization. The pt presents with a chief complaint of SOB over the last few days. She denies CP and was not lightheaded. She did not notice gross blood in her stool and does not describe black stool. Initial labs on arrival to the ER were notable for a hemoglobin of 5.1. A rectal exam was heme+. The pt does not speak Irish. Granddaughter at bedside translated from [place]. PMH 1) Colonic AVM - admitted twice and required colonoscopy and multiple transfusions 2017, 2018 2) Hemorrhoids 3) HTN 4) HLD 5) Obese 6) Pulmonary edema owing to transfusion 2018 Surgical: 1) TKA 2) Hernia repair Social: Does not smoke or drink - lives with family. She speaks Nikki only Family: Cause of parents not known - states "old age" Allergies Allergy/AdvReac Type Severity Reaction Status Date / Time No Known Allergies Allergy Verified 01/27/19 10:29 Home Medications Home Medications Medication Instructions Recorded Confirmed Type aspirin [Aspir-81] 81 mg PO DAILY 09/20/18 01/27/19 History linaclotide [Linzess] 145 mcg PO QAM 09/20/18 01/27/19 History lisinopril [Zestril] 10 mg PO DAILY 09/20/18 01/27/19 History lovastatin 60 mg PO DAILY 09/20/18 01/27/19 History metoprolol tartrate 25 mg PO BID 09/20/18 01/27/19 History pantoprazole [Protonix] 40 mg PO DAILY 09/20/18 01/27/19 History ranitidine HCl [Zantac] 150 mg PO HS 09/20/18 01/27/19 History valsartan [Diovan] 160 mg PO DAILY 09/20/18 01/27/19 History ferrous sulfate 325 mg PO DAILY 01/27/19 01/27/19 History furosemide 20 mg PO DAILY 01/27/19 01/27/19 History Past Med/Surg History Medical History Hypercholesteremia (Chronic) S/P hernia repair (Resolved) CHF (congestive heart failure) GI bleed Surgical History S/P knee replacement (Resolved) Family History Other Family history non-contributory Social History Feels Safe at Home: Yes Smoking Status: Never smoker Review of Systems Gen: Denies fevers, night sweats, rigors, fatigue, malaise, weight loss/gain ENT: Denies congestion, throat pain, hearing loss Eyes: Denies acute visual changes CV: Denies CP, palpitations Pulmonary: SOB as reported in HPI GI: Denies N/V, diarrhea, constipation Neuro: Denies acute or unilateral weakness, acute gait impairment, headache or acute visual changes Musculoskeletal: Denies joint pain, inflammation Endocrine: Denies polydipsia, polyuria Skin: Denies acute rashes or ulcers Physical Exam Vital Signs (Past 24 Hours): Last Vital Signs Temp 36.7 C 01/27/19 13:00 Pulse 79 01/27/19 13:00 Resp 22 01/27/19 13:00 BP 128/67 01/27/19 13:00 Pulse Ox 100 01/27/19 13:00 Physical Exam: General: Obese, elderly F, AAO x 3, no distress ENT: No erythema or exudates, no thrush Eyes: JESIKA, EOMI Head and neck: Normocephalic, atraumatic, No JVD, neck is supple. Chest/heart: Nontender, S1,2, RRR, no murmurs, no gallops Lungs: CTAB, no wheezing or crackles Abdomen: Nontender, nondistended, BS+ - palpable central hernia Neuro: AAO x 3, speech is clear, no unilateral weakness or loss of sensation, coordination intact Musculoskeletal: No joint inflammation, muscle tenderness, FROM Skin: No acute rashes or ulcers Extremities: No clubbing, cyanosis, edema (1) GI bleed GI bleed type/associated pathology: unspecified gastrointestinal hemorrhage type Qualified Code(s): K92.2 - Gastrointestinal hemorrhage, unspecified
[2019-01-27] MEDS ORDERED: ONDANSETRON INJ 2 MG/ML 2 ML VIAL IV PRN (14:25)
[2019-01-27] MEDS ORDERED: ACETAMINOPHEN 325 MG TAB PO PRN (14:25)
--- NOTE | 2019-01-27 14:50 | Gastrointestinal Consultation ---
Date of Consultation January 27, 2019 Assessment & Plan (1) Symptomatic anemia: Ms. Lucy Wray is an 88 yr old female with symptomatic anemia w/o gross GI bleeding as well as a hx of cecal angioectasia. Causes of the anemia considered include cecal angioectasia as well as UGI sources such as ulcer disease or upper GI AVMs. Ischemic colitis is considered but typically causes marked abdominal pain and hematochezia which she does not report. Plan: Fluids/blood resuscitation. Consider colonoscopy next week if pt does not remain stable after blood transfusion or if gross GI bleeding is apparent. Present on Admission?: Yes Supervising Physician Co-Signing Physician Notes I have seen and examined the patient and discussed the management with AIDEN Nobles. Medical history signfiicant for a mv repair with a clip in her mitral valve at [facility] in 2018, only on aspirin. GI is consulted for anemia, symptomatic with sob- no overt signs of gi bleeding (melena/hematochezia, hematemesis), with heme + stool reportedly per H and P. Belly exam shows a protuberant abdomen but soft nontender +bs, no overt signs of difficulty breathing. Labs reviewed - low hgb, mild bun rise, CTA reviewed as well. Her granddaughter at bedside who translates for her says the only real change in her habits has been that she doesn't come downstairs as much as normal- otherwise she has still been taking care of herself, washing herself. Per H and P, there may have been a colonoscopy done in 2018 with cauterization (presumbaly of her prior avms' noted on colonoscopy from [address] Yoon,but there is no record on review in [facility] today). Per granddaughter at bedside- she does not recall this. The differential for her anemia could include a slow bleed from her prior known cecal avm's per colonoscopy done by Dr. Yoon in 2014, however if these were cauterized, this should not be contributing anymore. 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 Given her current findings of potential chf with pleural effusions and anemia without overt bleeding, would opt to treat with transfusion and monitor her blood counts with Lasix in between transfusions. She has mild reflux like symptoms -recommend BID PPI. Agree with further plan of care as per Lorella's assesment and plan. History of Present Illness Reason for Consultation: Ms. Lucy Wray is an 88 yr old female pt of Dr. Diaz with a hx of Mitral valve repair, CHF, hyperlipidemia, chronic anemia on oral iron. She also has a hx of colonic AVMs, APC'ed by Dr. Yoon, most recently in 2014. She is maintained on ASA 81mg daily, no other antiplatelets or anticoagulants. 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 She was brought to the ED today for SOB. On arrival, Hb 4.4 w/o any report of black BMs or blood in the BMs. Her grand daughter is with her and she provides translation. She tells us that her grandmother is chronically mildly SOB with cough but experienced increased SOB the past 3-4 days. She has not had c/o abdominal pain, nausea vomiting or obvious blood in her BMs. She also does not believe that the pt has had loose black BMs. Requesting Physician: Dr. Finney Attending Physician: Juno Finney MD Allergies Allergy/AdvReac Type Severity Reaction Status Date / Time No Known Allergies Allergy Verified 01/27/19 10:29 Home Medications Home Medications Medication Instructions Recorded Confirmed Type aspirin [Aspir-81] 81 mg PO DAILY 09/20/18 01/27/19 History linaclotide [Linzess] 145 mcg PO QAM 09/20/18 01/27/19 History lisinopril [Zestril] 10 mg PO DAILY 09/20/18 01/27/19 History lovastatin 60 mg PO DAILY 09/20/18 01/27/19 History metoprolol tartrate 25 mg PO BID 09/20/18 01/27/19 History pantoprazole [Protonix] 40 mg PO DAILY 09/20/18 01/27/19 History ranitidine HCl [Zantac] 150 mg PO HS 09/20/18 01/27/19 History valsartan [Diovan] 160 mg PO DAILY 09/20/18 01/27/19 History ferrous sulfate 325 mg PO DAILY 01/27/19 01/27/19 History furosemide 20 mg PO DAILY 01/27/19 01/27/19 History Patient History Medical History Hypercholesteremia (Chronic) S/P hernia repair (Resolved) CHF (congestive heart failure) GI bleed Surgical History S/P knee replacement (Resolved) Family History Other Family history non-contributory Social History Communication Tools: Other Beliefs That Will Affect Care: None Current Living Situation: Family Current Living Situation Comment: lives with son and family Other Information That Helps Us Care for You: No Feels Safe at Home: Yes Safety Concerns: Feels Safe At This Time Smoking Status: Never smoker Hx Alcohol Use: No Hx Substance Use: No Review of Systems Gen: Denies fever, weakness, weight loss. Eyes: no vision changes, no eye redness or pain Respiratory: + SOB, + mild chronic cough cough Cardiovascular: No irregular heartbeats or chest pain, no syncope Abdomen: No abdominal pain, no nausea/vomiting Ext: No edema Hem: No excessive bruising/bleeding Physical Exam Vital Signs (Past 24 Hours): Last Vital Signs Temp 36.6 C 01/27/19 14:31 Pulse 68 01/27/19 14:31 Resp 18 01/27/19 14:31 BP 144/74 H 01/27/19 14:31 Pulse Ox 94 01/27/19 14:31 Constitutional: WD/WN, vitals as above + obese Resting quietly snuggled under blankets but awake and responsive; not conversational due to language barrier. Grand daughter talking for her. Eyes: PERRL, conjunctivae normal, anicteric sclerae ENMT: external ear and nose normal, oropharynx normal Neck: trachea midline, no thyromegaly Respiratory: normal respiratory effort, lungs clear to auscultation Cardiovascular: RRR, no murmur, no edema Vessels: no JVD Extremities: no edema Gastrointestinal (Abdomen): Percussion/Palpation: + abdomen tender (mild RLQ tenderness) and abdomen soft large reducible hernia; abdomen is non distended, soft; hypoactive BS Skin: no rashes, warm and dry no jaundice Neurologic: PERRL, EOMI, accommodation nl, no face palsy, no dysarthria Psychiatric: A+Ox3, euthymic affect Lymphatic: no cervical or axillary lymphadenopathy Results & Data Laboratory Results Hb 4.4, down from 9.1 on 08/21/18. BUN 20, Cr 1.[address] angiogram Abd/pelvis 01/27/19: 1. No evidence of abdominal aortic aneurysm or acute aortic injury. Patent vasculature despite extensive calcified atherosclerotic plaque. 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 2. Surgical clip in the region of mitral valve present since May 2018. Correlate for a cardiac intervention versus unintended embolization. This has not changed since May. 3. Diverticulosis coli. No diverticulitis. 4. Fat-containing epigastric hernia as on prior exam along the superior margin of the prostatic mesh in the setting of prior ventral hernia repair. 5. New small right and trace left pleural effusions in the setting of cardiomegaly.
[2019-01-27] MEDS ORDERED: FUROSEMIDE 40 MG in SYRINGE 0 ML IV SCH (15:15)
[2019-01-27] MEDS ORDERED: FUROSEMIDE 20 MG in SYRINGE 0 ML IV SCH (15:30)
[2019-01-27] MEDS: METOPROLOL TARTRATE 25 MG TAB PO SCH (20:32)
[2019-01-28 06:14] LABS: Calcium 8.3 mg/dl (8.5-10.1); Creatinine Clr Calc Pharmacy 32.9 ml/min; Est GFR (African American) 45.8; Est GFR (Non-African American) 39.5; Magnesium 2.4 mg/dl (1.8-2.4); Potassium 4.2 mmol/L (3.5-5.1)
--- NOTE | 2019-01-28 07:35 | Emergency Department Note ---
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 She is accompanied by her granddaughter who reports the patient has had epigastric pain for the past few days, so she went to her PCP's office this morning. Her granddaughter notes they saw a JANUARY named Marbella and had an EKG done. Her granddaughter states her EKG showed an irregular heart rate so she was referred to the ED for further evaluation. She denies the patient having any fevers or chills. Pt regularly takes baby aspirin. Home Medications Home Medications Medication Instructions Recorded Confirmed Type aspirin [Aspir-81] 81 mg PO DAILY 09/20/18 01/27/19 History linaclotide [Linzess] 145 mcg PO QAM 09/20/18 01/27/19 History lisinopril [Zestril] 10 mg PO DAILY 09/20/18 01/27/19 History lovastatin 60 mg PO DAILY 09/20/18 01/27/19 History metoprolol tartrate 25 mg PO BID 09/20/18 01/27/19 History pantoprazole [Protonix] 40 mg PO DAILY 09/20/18 01/27/19 History ranitidine HCl [Zantac] 150 mg PO HS 09/20/18 01/27/19 History valsartan [Diovan] 160 mg PO DAILY 09/20/18 01/27/19 History ferrous sulfate 325 mg PO DAILY 01/27/19 01/27/19 History furosemide 20 mg PO DAILY 01/27/19 01/27/19 History Allergies Allergy/AdvReac Type Severity Reaction Status Date / Time No Known Allergies Allergy Verified 01/27/19 10:29 Past Med/Surg History Medical History Hypercholesteremia (Chronic) S/P hernia repair (Resolved) CHF (congestive heart failure) GI bleed Surgical History S/P knee replacement (Resolved) Family History Other Family history non-contributory Social History Communication Tools: Other Beliefs That Will Affect Care: None Current Living Situation: Family Current Living Situation Comment: lives with son and family Other Information That Helps Us Care for You: No Feels Safe at Home: Yes Safety Concerns: Feels Safe At This Time Smoking Status: Never smoker Hx Alcohol Use: No Hx Substance Use: No Review of Systems See HPI for pertinent positives & negatives. and A total of 10 systems reviewed and were otherwise negative Physical Exam Vital Signs Vital Signs - 24 hr 01/27/19 09:38 01/27/19 10:34 01/27/19 11:11 Temperature 36.5 C Temperature Source Oral Sepsis Recent Fever Within 48 Hours No Sepsis New/Unexplained Change in Mental Status No Sepsis Action Taken by Nursing No Action Required Pulse Rate 80 Pulse Rate [Apical] 85 Pulse Rhythm Pulse Rhythm [Apical] Pulse Strength Pulse Strength [Apical] Respiratory Rate 18 20 Respiratory Effort / Characteristics Respiratory Depth Normal Respiratory Pattern Blood Pressure 115/50 L Blood Pressure [Right Arm] 132/62 Blood Pressure Mean 71 Blood Pressure Mean [Right Arm] 85 Blood Pressure Position Blood Pressure Position [Right Arm] Pulse Oximetry 99 96 92 Oxygen Delivery Method Room Air Room Air Room Air Oxygen Flow Rate 01/27/19 12:13 01/27/19 12:23 01/27/19 12:29 Temperature 36.4 C L 36.5 C Temperature Source Oral Oral Sepsis Recent Fever Within 48 Hours Sepsis New/Unexplained Change in Mental Status Sepsis Action Taken by Nursing Pulse Rate 84 82 Pulse Rate [Apical] 84 Pulse Rhythm Pulse Rhythm [Apical] Pulse Strength Pulse Strength [Apical] Respiratory Rate 14 17 16 Respiratory Effort / Characteristics Respiratory Depth Respiratory Pattern Blood Pressure 136/68 134/66 Blood Pressure [Right Arm] 136/68 Blood Pressure Mean 90 88 Blood Pressure Mean [Right Arm] 90 Blood Pressure Position Blood Pressure Position [Right Arm] Pulse Oximetry 93 98 99 Oxygen Delivery Method Room Air Oxygen Flow Rate 01/27/19 12:44 01/27/19 13:00 01/27/19 13:30 Temperature 36.6 C 36.7 C 36.8 C Temperature Source Oral Oral Oral Sepsis Recent Fever Within 48 Hours Sepsis New/Unexplained Change in Mental Status Sepsis Action Taken by Nursing Pulse Rate 78 79 67 Pulse Rate [Apical] Pulse Rhythm Pulse Rhythm [Apical] Pulse Strength Pulse Strength [Apical] Respiratory Rate 14 22 20 Respiratory Effort / Characteristics Respiratory Depth Respiratory Pattern Blood Pressure 128/64 128/67 138/67 Blood Pressure [Right Arm] Blood Pressure Mean 85 87 90 Blood Pressure Mean [Right Arm] Blood Pressure Position Blood Pressure Position [Right Arm] Pulse Oximetry 95 100 95 Oxygen Delivery Method Oxygen Flow Rate 01/27/19 14:14 01/27/19 14:31 01/27/19 15:11 Temperature 36.7 C 36.6 C 36.7 C Temperature Source Oral Oral Oral Sepsis Recent Fever Within 48 Hours Sepsis New/Unexplained Change in Mental Status Sepsis Action Taken by Nursing Pulse Rate 76 74 Pulse Rate [Apical] 68 Pulse Rhythm Pulse Rhythm [Apical] Regular Pulse Strength Pulse Strength [Apical] Normal Respiratory Rate 18 18 Respiratory Effort / Characteristics Non-Labored Spontaneous Normal for Patient Respiratory Depth Normal Respiratory Pattern Regular Blood Pressure 169/74 H 161/78 H Blood Pressure [Right Arm] 144/74 H Blood Pressure Mean 105 105 Blood Pressure Mean [Right Arm] 97 Blood Pressure Position Lying Blood Pressure Position [Right Arm] Lying Pulse Oximetry 99 94 Oxygen Delivery Method Room Air Oxygen Flow Rate 01/27/19 15:28 01/27/19 15:35 01/27/19 15:51 Temperature 36.7 C 36.9 C 36.9 C Temperature Source Oral Oral Oral Sepsis Recent Fever Within 48 Hours Sepsis New/Unexplained Change in Mental Status Sepsis Action Taken by Nursing Pulse Rate 72 74 Pulse Rate [Apical] 69 Pulse Rhythm Pulse Rhythm [Apical] Pulse Strength Pulse Strength [Apical] Respiratory Rate 18 18 18 Respiratory Effort / Characteristics Respiratory Depth Normal Respiratory Pattern Blood Pressure 157/72 H Blood Pressure [Right Arm] 169/74 H Blood Pressure Mean 100 Blood Pressure Mean [Right Arm] 105 Blood Pressure Position Lying Lying Blood Pressure Position [Right Arm] Lying Pulse Oximetry 96 100 100 Oxygen Delivery Method Room Air Oxygen Flow Rate 01/27/19 16:06 01/27/19 16:21 01/27/19 16:51 Temperature 36.9 C 36.9 C 36.8 C Temperature Source Oral Oral Oral Sepsis Recent Fever Within 48 Hours Sepsis New/Unexplained Change in Mental Status Sepsis Action Taken by Nursing Pulse Rate 74 74 73 Pulse Rate [Apical] Pulse Rhythm Regular Regular Regular Pulse Rhythm [Apical] Pulse Strength Normal Normal Normal Pulse Strength [Apical] Respiratory Rate 18 18 18 Respiratory Effort / Characteristics Respiratory Depth Respiratory Pattern Blood Pressure 155/76 H 151/71 H 148/72 H Blood Pressure [Right Arm] Blood Pressure Mean 102 97 97 Blood Pressure Mean [Right Arm] Blood Pressure Position Lying Lying Lying Blood Pressure Position [Right Arm] Pulse Oximetry 100 99 100 Oxygen Delivery Method Oxygen Flow Rate 01/27/19 17:21 01/27/19 18:20 01/27/19 19:19 Temperature 37.0 C 37.0 C 36.6 C Temperature Source Oral Oral Oral Sepsis Recent Fever Within 48 Hours Sepsis New/Unexplained Change in Mental Status Sepsis Action Taken by Nursing Pulse Rate 73 73 76 Pulse Rate [Apical] Pulse Rhythm Regular Regular Regular Pulse Rhythm [Apical] Pulse Strength Normal Normal Normal Pulse Strength [Apical] Respiratory Rate 18 18 18 Respiratory Effort / Characteristics Respiratory Depth Respiratory Pattern Blood Pressure 145/71 H 172/79 H Blood Pressure [Right Arm] Blood Pressure Mean 95 110 Blood Pressure Mean [Right Arm] Blood Pressure Position Lying Lying Lying Blood Pressure Position [Right Arm] Pulse Oximetry 100 99 96 Oxygen Delivery Method Oxygen Flow Rate 01/27/19 19:50 01/27/19 19:56 01/27/19 20:05 Temperature 36.4 C L 36.4 C L Temperature Source Oral Oral Sepsis Recent Fever Within 48 Hours Sepsis New/Unexplained Change in Mental Status Sepsis Action Taken by Nursing Pulse Rate 70 70 Pulse Rate [Apical] Pulse Rhythm Regular Regular Pulse Rhythm [Apical] Pulse Strength Normal Normal Pulse Strength [Apical] Respiratory Rate 16 16 Respiratory Effort / Characteristics Non-Labored Spontaneous Respiratory Depth Normal Respiratory Pattern Regular Blood Pressure 149/67 H 149/67 H Blood Pressure [Right Arm] Blood Pressure Mean 94 94 Blood Pressure Mean [Right Arm] Blood Pressure Position Lying Lying Blood Pressure Position [Right Arm] Pulse Oximetry 96 96 Oxygen Delivery Method Room Air Oxygen Flow Rate 01/27/19 20:15 01/27/19 20:30 01/27/19 21:00 Temperature 37.3 C 37.2 C 36.9 C Temperature Source Oral Oral Oral Sepsis Recent Fever Within 48 Hours Sepsis New/Unexplained Change in Mental Status Sepsis Action Taken by Nursing Pulse Rate 85 69 63 Pulse Rate [Apical] Pulse Rhythm Regular Regular Pulse Rhythm [Apical] Pulse Strength Normal Normal Pulse Strength [Apical] Respiratory Rate 18 16 16 Respiratory Effort / Characteristics Respiratory Depth Respiratory Pattern Blood Pressure 161/72 H 151/68 H 138/76 Blood Pressure [Right Arm] Blood Pressure Mean 101 95 96 Blood Pressure Mean [Right Arm] Blood Pressure Position Sitting Lying Blood Pressure Position [Right Arm] Pulse Oximetry 96 97 Oxygen Delivery Method Oxygen Flow Rate 01/27/19 22:00 01/27/19 23:00 01/27/19 23:05 Temperature 36.6 C 36.7 C 36.7 C Temperature Source Oral Oral Oral Sepsis Recent Fever Within 48 Hours Sepsis New/Unexplained Change in Mental Status Sepsis Action Taken by Nursing Pulse Rate 61 73 73 Pulse Rate [Apical] Pulse Rhythm Regular Regular Pulse Rhythm [Apical] Pulse Strength Normal Normal Pulse Strength [Apical] Respiratory Rate 16 18 18 Respiratory Effort / Characteristics Respiratory Depth Respiratory Pattern Blood Pressure 151/71 H 152/91 H 152/91 H Blood Pressure [Right Arm] Blood Pressure Mean 97 111 111 Blood Pressure Mean [Right Arm] Blood Pressure Position Lying Lying Lying Blood Pressure Position [Right Arm] Pulse Oximetry 96 97 97 Oxygen Delivery Method Oxygen Flow Rate 01/27/19 23:30 01/27/19 23:45 01/27/19 23:52 Temperature 36.7 C 36.7 C 36.7 C Temperature Source Oral Oral Oral Sepsis Recent Fever Within 48 Hours Sepsis New/Unexplained Change in Mental Status Sepsis Action Taken by Nursing Pulse Rate 61 69 69 Pulse Rate [Apical] Pulse Rhythm Regular Regular Pulse Rhythm [Apical] Pulse Strength Normal Normal Pulse Strength [Apical] Respiratory Rate 16 18 18 Respiratory Effort / Characteristics Respiratory Depth Respiratory Pattern Blood Pressure 160/82 H 152/72 H 152/72 H Blood Pressure [Right Arm] Blood Pressure Mean 108 98 98 Blood Pressure Mean [Right Arm] Blood Pressure Position Lying Blood Pressure Position [Right Arm] Pulse Oximetry 96 95 95 Oxygen Delivery Method Oxygen Flow Rate 01/28/19 00:05 01/28/19 00:30 01/28/19 00:52 Temperature 36.7 C 37.0 C 37.1 C Temperature Source Oral Oral Oral Sepsis Recent Fever Within 48 Hours Sepsis New/Unexplained Change in Mental Status Sepsis Action Taken by Nursing Pulse Rate 67 63 76 Pulse Rate [Apical] Pulse Rhythm Pulse Rhythm [Apical] Pulse Strength Pulse Strength [Apical] Respiratory Rate 18 18 18 Respiratory Effort / Characteristics Respiratory Depth Respiratory Pattern Blood Pressure 176/72 H 159/72 H 153/78 H Blood Pressure [Right Arm] Blood Pressure Mean 106 101 103 Blood Pressure Mean [Right Arm] Blood Pressure Position Lying Blood Pressure Position [Right Arm] Pulse Oximetry 93 95 Oxygen Delivery Method Oxygen Flow Rate 93 01/28/19 02:45 01/28/19 07:04 Temperature 36.7 C 36.9 C Temperature Source Oral Oral Sepsis Recent Fever Within 48 Hours Sepsis New/Unexplained Change in Mental Status Sepsis Action Taken by Nursing Pulse Rate 68 Pulse Rate [Apical] 79 Pulse Rhythm Regular Pulse Rhythm [Apical] Pulse Strength Normal Pulse Strength [Apical] Respiratory Rate 16 16 Respiratory Effort / Characteristics Respiratory Depth Respiratory Pattern Blood Pressure 160/82 H Blood Pressure [Right Arm] 161/78 H Blood Pressure Mean 108 Blood Pressure Mean [Right Arm] 105 Blood Pressure Position Lying Blood Pressure Position [Right Arm] Pulse Oximetry 96 92 Oxygen Delivery Method Room Air Oxygen Flow Rate 93 GENERAL: Well appearing, well nourished, NAD, non-toxic. EYE EXAM: Normal conjunctiva. PERRL, no anisocoria and EOM's grossly intact w/o pain OROPHARYNX: Moist MM. NECK: Supple, no nuchal rigidity, no adenopathy, non-tender. No signs of meni ngismus LUNGS: Clear to auscultation. Normal chest wall mechanics. HEART: NSR. Diastolic murmur. ABDOMEN: Abdomen soft, mild diffuse abdominal pain, worse on the right side, normo-active bowel sounds, no masses, no rebound or guarding. BACK: No CVA TTP. Mild lower lumbar discomfort. RECTAL: Several external nonbleeding hemorrhoids. Not thrombosed. No fissures. No gross blood. Heme positive. SKIN: No rashes and no bruising. UPPER EXTREMITIES: Upper extremities are grossly normal. LOWER EXTREMITIES: No pitting edema. No calf pain NEURO EXAM: A and O x3. GCS 15. Moves all 4 extremities. Course 0953: Past medical records reviewed. The patient was evaluated in room C3, and a complete history and physical examination were performed. 1155: I reviewed the patient's case with Dr. Finney, [facility] Hospitalist. He will evaluate the patient for further management. Administered Medications Ioversol (Optiray 320 125ml) 119 ml IV ONCE PRN PRN Reason: Interaction Checking Stop: 01/31/19 11:10 Last Admin: 01/27/19 11:11 Dose: 119 ml Documented by: [id number] Metoprolol Tartrate (Lopressor) 25 mg PO BID [facility] Stop: 02/26/19 20:59 Last Admin: 01/27/19 20:32 Dose: 25 mg Documented by: [id number] Ranitidine HCl (Zantac) 150 mg PO HS [facility] Stop: 02/26/19 20:59 Last Admin: 01/27/19 20:32 Dose: 150 mg Documented by: [id number] Discontinued Medications Acetaminophen (Tylenol) 1,000 mg PO NOW STA Stop: 01/27/19 10:08 Last Admin: 01/27/19 10:47 Dose: 1,000 mg Documented by: [id number] Sodium Chloride (Nss) 500 mls @ 999 mls/hr IV .Q31M [facility] Stop: 01/27/19 10:45 Last Infusion: 01/27/19 12:02 Dose: 0 mls/hr Documented by: [id number] Admin: 01/27/19 10:48 Dose: 999 mls/hr Documented by: [id number] Pantoprazole Sodium (Protonix Bolus/Drip) 0 mls @ 1 mls/hr IV ONE STA Stop: 01/27/19 10:49 Last Admin: 01/27/19 11:50 Dose: Not Given Documented by: [id number] Pantoprazole Sodium 40 mg/ (Dextrose) 100 mls @ 20 mls/hr IV Q5H [facility] Stop: 02/26/19 10:59 Last Infusion: 01/27/19 16:35 Dose: 0 mls/hr Documented by: [id number] Admin: 01/27/19 11:34 Dose: 20 mls/hr Documented by: [id number] Pantoprazole Sodium 80 mg/ (Dextrose) 120 mls @ 400 mls/hr IV NOW ONE Stop: 01/27/19 11:05 Last Infusion: 01/27/19 11:34 Dose: 0 mls/hr Documented by: [id number] Admin: 01/27/19 11:12 Dose: 400 mls/hr Documented by: [id number] Furosemide 40 mg/ Syringe 4 mls @ 4 mls/min IV TODAY@1515 [facility] Stop: 01/27/19 18:00 Last Admin: 01/27/19 19:20 Dose: 4 mls/min Documented by: [id number] Furosemide 20 mg/ Syringe 2 mls @ 4 mls/min IV TODAY@1530 [facility] Stop: 01/27/19 18:00 Last Admin: 01/28/19 04:16 Dose: 4 mls/min Documented by: [id number] Morphine Sulfate (Morphine Sulfate) 4 mg IV NOW STA Stop: 01/27/19 10:08 Last Admin: 01/27/19 10:47 Dose: 4 mg Documented by: [id number] Medical Decision Making Medical Records Attestation: I reviewed the patient's medical records. Home Medications Current Medication List: was personally reviewed by me Laboratory Data Attestation: I reviewed the patient's lab results. Result diagrams: 01/28/19 05:36 01/28/19 05:36 Lab Results 01/27/19 01/27/19 01/27/19 Range/Units 09:55 09:55 09:55 WBC 6.65 (4.8-10.8) K/uL RBC 2.45 L (4.2-5.4) M/uL Hgb 4.4 L* (12.0-16.0) g/dL POC Hgb (12.0-16.0) g/dl Hct 16.2 L* (37-47) % POC Hct (37-47) % MCV 66.1 L (80-100) fL MCH 18.0 L (25-34) pg MCHC 27.2 L (32-36) g/dL Plt Count 303 (130-400) K/uL Immature Gran % (Auto) 0.6 % Neut % (Auto) 69.5 % Lymph % (Auto) 16.5 % [place] % (Auto) 12.5 % Eos % (Auto) 0.6 % Baso % (Auto) 0.3 % Immature Gran # (Auto) 0.04 H (0.00-0.02) K/uL Neut # (Auto) 4.62 (1.4-6.5) K/uL Lymph # (Auto) 1.10 L (1.2-3.4) K/uL [place] # (Auto) 0.83 H (0.11-0.59) K/uL Eos # (Auto) 0.04 (0-0.5) K/uL Baso # (Auto) 0.02 (0-0.2) K/uL Absolute Nucleated RBC 0.12 H (0-0) K/uL Nucleated RBC % (auto) 1.8 % Toxic Granulation 1+ Toxic Vacuolation 1+ Polychromasia 1+ Hypochromasia Present Ovalocytes 1+ Schistocytes 1+ PT 12.0 (9.0-12.0) Seconds INR 1.2 H (0.9-1.1) POC Sodium (135-144) mEq/L Sodium 138 (136-145) mmol/L POC Potassium (3.3-5.0) mEq/L Potassium 4.6 (3.5-5.1) mmol/L POC Chloride (101-112) mEq/L Chloride 104 (98-107) mmol/L Carbon Dioxide 26 (21-32) mmol/L POC Total CO2 (24-31) mEq/l Anion Gap 8.0 (3-11) POC Anion Gap (16-25) mmol/L POC BUN (7-18) mg/dl BUN 20 H (7-18) mg/dl Creatinine 1.13 (0.6-1.2) mg/dl POC Creatinine (0.6-1.3) mg/dl Est Cr Clr Drug Dosing 35.6 ml/min Est GFR ( Amer) 50.3 Est GFR (Non-Af Amer) 43.4 BUN/Creatinine Ratio 17.3 (10-20) Glucose 89 (70-99) mg/dl POC Glucose (other) (70-99) mg/dl Calcium 8.3 L (8.5-10.1) mg/dl POC Ioniz Calcium Bertha (1.12-1.32) mmol/l Magnesium 2.4 (1.8-2.4) mg/dl Total Bilirubin 0.3 (0.2-1) mg/dl AST 8 L (15-37) U/L ALT 12 (12-78) U/L Alkaline Phosphatase 56 (45-117) U/L Troponin I < 0.015 (0-0.045) ng/ml Total Protein 6.7 (6.4-8.2) gm/dl Albumin 3.0 L (3.4-5.0) gm/dl Globulin 3.7 (2.5-4.0) gm/dl Albumin/Globulin Ratio 0.8 L (0.9-2) Lipase 175 (73-393) U/L TSH 4.650 H (0.300-4.500) uIu/ml Free T4 0.95 (0.8-1.6) ng/dl Urine Color Urine Appearance (Clear) Urine pH (4.5-7.5) Ur Specific [place] (1.000-1.030) Urine Protein (Negative) Urine Glucose (UA) (Negative) Urine Ketones (Negative) Urine Blood (Negative) Urine Nitrite (Negative) Urine Bilirubin (Negative) Urine Urobilinogen (Negative) Ur Leukocyte Esterase (Negative) Urine WBC (Auto) (0-5) /hpf Urine RBC (Auto) (0-4) /hpf U Hyaline Cast (Auto) (0-5) /lpf U Epithel Cells (Auto) (0-5) /lpf Urine Bacteria (Auto) (Negative) Blood Type Antibody Screen Crossmatch 01/27/19 01/27/19 01/27/19 Range/Units 10:27 10:46 12:17 WBC (4.8-10.8) K/uL RBC (4.2-5.4) M/uL Hgb (12.0-16.0) g/dL POC Hgb 5.1 L* (12.0-16.0) g/dl Hct (37-47) % POC Hct 15 L* (37-47) % MCV (80-100) fL MCH (25-34) pg MCHC (32-36) g/dL Plt Count (130-400) K/uL Immature Gran % (Auto) % Neut % (Auto) % Lymph % (Auto) % [place] % (Auto) % Eos % (Auto) % Baso % (Auto) % Immature Gran # (Auto) (0.00-0.02) K/uL Neut # (Auto) (1.4-6.5) K/uL Lymph # (Auto) (1.2-3.4) K/uL [place] # (Auto) (0.11-0.59) K/uL Eos # (Auto) (0-0.5) K/uL Baso # (Auto) (0-0.2) K/uL Absolute Nucleated RBC (0-0) K/uL Nucleated RBC % (auto) % Toxic Granulation Toxic Vacuolation Polychromasia Hypochromasia Ovalocytes Schistocytes PT (9.0-12.0) Seconds INR (0.9-1.1) POC Sodium 137 (135-144) mEq/L Sodium (136-145) mmol/L POC Potassium 4.6 (3.3-5.0) mEq/L Potassium (3.5-5.1) mmol/L POC Chloride 101 (101-112) mEq/L Chloride (98-107) mmol/L Carbon Dioxide (21-32) mmol/L POC Total CO2 28 (24-31) mEq/l Anion Gap (3-11) POC Anion Gap 14.0 L (16-25) mmol/L POC BUN 21 H (7-18) mg/dl BUN (7-18) mg/dl Creatinine (0.6-1.2) mg/dl POC Creatinine 1.1 (0.6-1.3) mg/dl Est Cr Clr Drug Dosing ml/min Est GFR ( Amer) Est GFR (Non-Af Amer) BUN/Creatinine Ratio (10-20) Glucose (70-99) mg/dl POC Glucose (other) 90 (70-99) mg/dl Calcium (8.5-10.1) mg/dl POC Ioniz Calcium Bertha 1.16 (1.12-1.32) mmol/l Magnesium (1.8-2.4) mg/dl Total Bilirubin (0.2-1) mg/dl AST (15-37) U/L ALT (12-78) U/L Alkaline Phosphatase (45-117) U/L Troponin I (0-0.045) ng/ml Total Protein (6.4-8.2) gm/dl Albumin (3.4-5.0) gm/dl Globulin (2.5-4.0) gm/dl Albumin/Globulin Ratio (0.9-2) Lipase (73-393) U/L TSH (0.300-4.500) uIu/ml Free T4 (0.8-1.6) ng/dl Urine Color Yellow Urine Appearance Clear (Clear) Urine pH 6.0 (4.5-7.5) Ur Specific [place] 1.032 H (1.000-1.030) Urine Protein Negative (Negative) Urine Glucose (UA) Negative (Negative) Urine Ketones Negative (Negative) Urine Blood Negative (Negative) Urine Nitrite Negative (Negative) Urine Bilirubin Negative (Negative) Urine Urobilinogen Negative (Negative) Ur Leukocyte Esterase Trace H (Negative) Urine WBC (Auto) 1-5 (0-5) /hpf Urine RBC (Auto) 0-4 (0-4) /hpf U Hyaline Cast (Auto) 1-5 (0-5) /lpf U Epithel Cells (Auto) 5-10 H (0-5) /lpf Urine Bacteria (Auto) Negative (Negative) Blood Type B Positive Antibody Screen NEGATIVE Crossmatch See Detail 01/27/19 01/27/19 01/28/19 Range/Units 22:08 23:35 05:36 WBC (4.8-10.8) K/uL RBC (4.2-5.4) M/uL Hgb 7.4 L D 7.6 L 9.4 L (12.0-16.0) g/dL POC Hgb (12.0-16.0) g/dl Hct (37-47) % POC Hct (37-47) % MCV (80-100) fL MCH (25-34) pg MCHC (32-36) g/dL Plt Count (130-400) K/uL Immature Gran % (Auto) % Neut % (Auto) % Lymph % (Auto) % [place] % (Auto) % Eos % (Auto) % Baso % (Auto) % Immature Gran # (Auto) (0.00-0.02) K/uL Neut # (Auto) (1.4-6.5) K/uL Lymph # (Auto) (1.2-3.4) K/uL [place] # (Auto) (0.11-0.59) K/uL Eos # (Auto) (0-0.5) K/uL Baso # (Auto) (0-0.2) K/uL Absolute Nucleated RBC (0-0) K/uL Nucleated RBC % (auto) % Toxic Granulation Toxic Vacuolation Polychromasia Hypochromasia Ovalocytes Schistocytes PT (9.0-12.0) Seconds INR (0.9-1.1) POC Sodium (135-144) mEq/L Sodium (136-145) mmol/L POC Potassium (3.3-5.0) mEq/L Potassium (3.5-5.1) mmol/L POC Chloride (101-112) mEq/L Chloride (98-107) mmol/L Carbon Dioxide (21-32) mmol/L POC Total CO2 (24-31) mEq/l Anion Gap (3-11) POC Anion Gap (16-25) mmol/L POC BUN (7-18) mg/dl BUN (7-18) mg/dl Creatinine (0.6-1.2) mg/dl POC Creatinine (0.6-1.3) mg/dl Est Cr Clr Drug Dosing ml/min Est GFR ( Amer) Est GFR (Non-Af Amer) BUN/Creatinine Ratio (10-20) Glucose (70-99) mg/dl POC Glucose (other) (70-99) mg/dl Calcium (8.5-10.1) mg/dl POC Ioniz Calcium Bertha (1.12-1.32) mmol/l Magnesium (1.8-2.4) mg/dl Total Bilirubin (0.2-1) mg/dl AST (15-37) U/L ALT (12-78) U/L Alkaline Phosphatase (45-117) U/L Troponin I (0-0.045) ng/ml Total Protein (6.4-8.2) gm/dl Albumin (3.4-5.0) gm/dl Globulin (2.5-4.0) gm/dl Albumin/Globulin Ratio (0.9-2) Lipase (73-393) U/L TSH (0.300-4.500) uIu/ml Free T4 (0.8-1.6) ng/dl Urine Color Urine Appearance (Clear) Urine pH (4.5-7.5) Ur Specific [place] (1.000-1.030) Urine Protein (Negative) Urine Glucose (UA) (Negative) Urine Ketones (Negative) Urine Blood (Negative) Urine Nitrite (Negative) Urine Bilirubin (Negative) Urine Urobilinogen (Negative) Ur Leukocyte Esterase (Negative) Urine WBC (Auto) (0-5) /hpf Urine RBC (Auto) (0-4) /hpf U Hyaline Cast (Auto) (0-5) /lpf U Epithel Cells (Auto) (0-5) /lpf Urine Bacteria (Auto) (Negative) Blood Type Antibody Screen Crossmatch 01/28/19 Range/Units 05:36 WBC (4.8-10.8) K/uL RBC (4.2-5.4) M/uL Hgb (12.0-16.0) g/dL POC Hgb (12.0-16.0) g/dl Hct (37-47) % POC Hct (37-47) % MCV (80-100) fL MCH (25-34) pg MCHC (32-36) g/dL Plt Count (130-400) K/uL Immature Gran % (Auto) % Neut % (Auto) % Lymph % (Auto) % [place] % (Auto) % Eos % (Auto) % Baso % (Auto) % Immature Gran # (Auto) (0.00-0.02) K/uL Neut # (Auto) (1.4-6.5) K/uL Lymph # (Auto) (1.2-3.4) K/uL [place] # (Auto) (0.11-0.59) K/uL Eos # (Auto) (0-0.5) K/uL Baso # (Auto) (0-0.2) K/uL Absolute Nucleated RBC (0-0) K/uL Nucleated RBC % (auto) % Toxic Granulation Toxic Vacuolation Polychromasia Hypochromasia Ovalocytes Schistocytes PT (9.0-12.0) Seconds INR (0.9-1.1) POC Sodium (135-144) mEq/L Sodium 139 (136-145) mmol/L POC Potassium (3.3-5.0) mEq/L Potassium 4.2 (3.5-5.1) mmol/L POC Chloride (101-112) mEq/L Chloride 103 (98-107) mmol/L Carbon Dioxide 30 (21-32) mmol/L POC Total CO2 (24-31) mEq/l Anion Gap 6.0 (3-11) POC Anion Gap (16-25) mmol/L POC BUN (7-18) mg/dl BUN 17 (7-18) mg/dl Creatinine 1.22 H (0.6-1.2) mg/dl POC Creatinine (0.6-1.3) mg/dl Est Cr Clr Drug Dosing 32.9 ml/min Est GFR ( Amer) 45.8 Est GFR (Non-Af Amer) 39.5 BUN/Creatinine Ratio 14.0 (10-20) Glucose 86 (70-99) mg/dl POC Glucose (other) (70-99) mg/dl Calcium 8.3 L (8.5-10.1) mg/dl POC Ioniz Calcium Bertha (1.12-1.32) mmol/l Magnesium 2.4 (1.8-2.4) mg/dl Total Bilirubin (0.2-1) mg/dl AST (15-37) U/L ALT (12-78) U/L Alkaline Phosphatase (45-117) U/L Troponin I (0-0.045) ng/ml Total Protein (6.4-8.2) gm/dl Albumin (3.4-5.0) gm/dl Globulin (2.5-4.0) gm/dl Albumin/Globulin Ratio (0.9-2) Lipase (73-393) U/L TSH (0.300-4.500) uIu/ml Free T4 (0.8-1.6) ng/dl Urine Color Urine Appearance (Clear) Urine pH (4.5-7.5) Ur Specific [place] (1.000-1.030) Urine Protein (Negative) Urine Glucose (UA) (Negative) Urine Ketones (Negative) Urine Blood (Negative) Urine Nitrite (Negative) Urine Bilirubin (Negative) Urine Urobilinogen (Negative) Ur Leukocyte Esterase (Negative) Urine WBC (Auto) (0-5) /hpf Urine RBC (Auto) (0-4) /hpf U Hyaline Cast (Auto) (0-5) /lpf U Epithel Cells (Auto) (0-5) /lpf Urine Bacteria (Auto) (Negative) Blood Type Antibody Screen Crossmatch Imaging Data Radiologist's Impression: Radiology results as stated below per my review and the radiologist's interpretation: XR chest 1V portable HISTORY: 88 years-old Female weakness acute weakness with chest burning COMPARISON: Chest radiograph 12/20/2018 TECHNIQUE: Portable AP view of the chest FINDINGS: Cardiac silhouette is enlarged. Pulmonary vascular congestion with mild interstitial coarsening. No pneumothorax. Mild blunting of the cost phrenic angles is unchanged. Subsegmental bibasilar opacities. Metallic radial densities about the right hilar distribution and left cardiophrenic angle are unchanged. Degenerative changes are noted about the shoulders and spine. Remote fracture of the right clavicle. Stable levoscoliosis. IMPRESSION: 1. Cardiomegaly with pulmonary vascular congestion and interstitial coarsening suggestive of mild pulmonary edema. 2. Bibasilar opacities suggest atelectasis. The above report was generated using voice recognition software. It may contain grammatical, syntax or spelling errors. Electronically signed by: Brandon Slade M.D. 01/27/2019 10:[address] angio abdomen pelvis w con CLINICAL HISTORY: 88 years-old Female presenting with low hgb, back pain. TECHNIQUE: Multidetector CT angiography of the abdomen and pelvis was performed after the administration of intravenous contrast. 3-D volumetric and/or maximum intensity projection (MIP) images were subsequently reconstructed for review. IV contrast: 119 mL of Optiray 320. One or more dose lowering techniques were used consistent with the principles of ALARA (as low as reasonably achievable), including automatic exposure control, mA or kV adjustment to individual patient size, and/or use of iterative reconstruction. Stenosis measurements were based on NASCET-like criteria (distal lumen diameter as the denominator for stenosis measurement). COMPARISON: 09/20/2018. CT DOSE (mGy.cm): The estimated cumulative dose is 1845.14. FINDINGS: Senior Financial Reporting Analyst topogram: Lumbar fusion hardware. S-shaped scoliotic curvature of the spine. Vasculature: Calcified atherosclerotic plaque throughout the normal caliber abdominal aorta. Plaque also noted at the origins of the major branch vessels with the greatest degree of stenosis noted at the origin of the superior mesenteric artery, which is suspected to be at least 50%. The heavily calcified degree of the plaque makes accurate assessment difficult. Bilateral single main renal arteries patent despite plaque at the origin of the right renal artery. Mild ectasia of the right common iliac artery with a diameter of 1.5 cm. Bilateral common, internal, and external iliac arteries widely patent. Early branching of the right common femoral artery. Bilateral common, superficial, and deep femoral arteries patent. Remaining abdomen and pelvis: Lung bases: Surgical clip in the region of the mitral valve, which has been present since May 2018. Multichamber enlargement of the heart. Small right and trace left pleural effusions. These are new from prior. Dependent changes in the lungs likely atelectasis. Liver: Normal morphology. No liver lesion allowing for the early arterial phase of contrast. Replaced left hepatic artery arising from the left gastric artery. Biliary: No intrahepatic or extrahepatic biliary ductal dilatation. Normal gallbladder. Pancreas: Normal. Spleen: Normal. Adrenal glands: Normal. Kidneys and ureters: Normal. No hydronephrosis. Bladder: Normal. Pelvic organs: Uterus normal. Cysts noted in the left ovary unchanged from prior though atypical for the patient's age. This is benign-appearing and measures less than 3 cm. Bowel: Diverticulosis of the proximal to mid sigmoid colon and distal descending colon without wall thickening or pericolonic inflammatory change. The appendix is absent. No bowel obstruction. Peritoneal cavity: No free fluid or intraperitoneal gas. Lymph nodes: No enlarged lymph nodes in the abdomen or pelvis. Abdominal wall: Postsurgical changes of the midline ventral abdomen with a prosthetic mesh in place. Small fat-containing ventral hernia with a peritoneal defect of 1.5 cm and a hernia sac diameter of approximately 5 cm in the epigastrium. This is at the superior margin of the prosthetic mesh. Small fat-containing hernias superficial to the mesh more inferiorly. No associated fluid. Musculoskeletal: Degenerative changes of the spine. Bilateral transpedicular screw and sachin fixation of L4-5. Degenerative changes of the sacroiliac joints and pubic symphysis. IMPRESSION: 1. No evidence of abdominal aortic aneurysm or acute aortic injury. Patent vasculature despite extensive calcified atherosclerotic plaque. 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 2. Surgical clip in the region of mitral valve present since May 2018. Correlate for a cardiac intervention versus unintended embolization. This has not changed since May. 3. Diverticulosis coli. No diverticulitis. 4. Fat-containing epigastric hernia as on prior exam along the superior margin of the prostatic mesh in the setting of prior ventral hernia repair. 5. New small right and trace left pleural effusions in the setting of cardiomegaly. Electronically signed by: Marcello Mcdaniels M.D. 01/27/2019 11:[address] angio chest dissec wo/w con HISTORY: 88 years-old Female low hgb, back pain acute anemia with low back pain COMPARISON: CTA abdomen and pelvis of same day, CTA chest 01/25/2008, CT abdomen and pelvis 10/31/2016. TECHNIQUE: CTA of the chest was obtained both with and without the use of 119 mL Optiray 320 IV contrast. 3-D coronal and sagittal MIPS were obtained from the axial data set and were submitted for review. All measurements were obtained according to NASCET criteria. A dose lowering technique was used consistent with the principals of LAN. FINDINGS: Senior Financial Reporting Analyst localizer images demonstrate the lumbar sigmoidal scoliosis. Fusion hardware of the lower lumbar spine. CTA: Moderate multichamber cardiac enlargement with coronary arterial calcifications and small pericardial effusion, most pronounced about the superior pericardial recess. Prosthetic device about the mitral valve noted. No thoracic aortic aneurysm or dissection. Imaged proximal great vessels appear to be patent. Decreased attenuation of the cardiac blood pole suggests anemia. The noncontrast scan demonstrates no intramural hematoma or mediastinal hematoma. The pulmonary arterial tree appears unremarkable without evidence of pulmonary thromboembolic disease. The segmental and subsegmental branches however are suboptimally visualized secondary to respiratory motion artifact. CT CHEST: Enlarged multinodular goiter with thyroid nodules measuring up to 1.6 cm on the left. Nonspecific mildly enlarged calcified subcarinal lymph nodes suggest prior granulomatous disease. Trace left and small right pleural effusions. No pneumothorax. 4 mm subpleural nodule of the right upper lobe is seen on image 71 series 7, unchanged from comparison suggesting a benign etiology. Mild bilateral intralobular thickening is noted with dependent groundglass densities. Minimal bibasilar dependent consolidation suggests compressive atelectasis. There is thickening of the bronchovascular bundles. No definite evidence of pneumonia. 4 mm solid nodule of the lateral segment right middle lobe, unchanged from 2016. Evaluation of the lung parenchyma is limited secondary to respiratory motion artifact. Central airways appear to be patent. No acute process about the imaged upper abdomen. Fluid noted about the distal esophagus. The soft tissues appear to be unremarkable. Degenerative changes are seen about the shoulders and spine. IMPRESSION: 1. Moderate cardiomegaly with small pericardial effusion, trace left and small right pleural effusions. 2. Mild pulmonary edema with subsegmental bibasilar consolidation suggestive of atelectasis. 3. No evidence of acute aortic pathology or pulmonary thromboembolic disease. 4. Decreased attenuation of the cardiac blood pool suggestive of anemia. 5. Additional findings as above. The above report was generated using voice recognition software. It may contain grammatical, syntax or spelling errors. Electronically signed by: Brandon Slade M.D. 01/27/2019 11:27 AM ECG Data Attestation: I personally reviewed and interpreted this ECG as follows: Indication: other (arrhythmia ) Rate (beats per minute): 85 Rhythm: normal sinus Findings: + other (normal intervals) and + left axis deviation; no acute ischemic change Blood Pressure Blood Pressure Findings: Normal blood pressure Blood Pressure Disposition: did not require urgent referral MDM Narrative Prior records/ancillary studies reviewed. Triage nursing notes reviewed. 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 Differential diagnosis: Etiologies such as appendicitis, diverticulitis, PUD, biliary pathology, UTI, pancreatitis, obstruction, mesenteric ischemia, aortic pathology, infections, inflammatory bowel disease, renal colic, as well as others were entertained. She was seen and evaluated the bedside. The patient had been referred for associated all over body pain. The patient did have blood work completed there were initial concerns about her hemoglobin being less than 5. Given this and the associated back and abdominal pain I did change CT abdomen pelvis to CT angiography to rule out dissection or aneurysm. These were negative for acute dissection or aneurysm. The patient's labs hemoglobin was low. The patient was consented for blood. Patient does have a known history of CHF and does appear to have a little bit of congestion based on her CT and chest x-ray. I did discuss with the hospitalist and stated the patient would likely benefit from Lasix with administration of blood products. Patient did have a rectal exam which showed that she did have a heme positive stool. PPI bolus and drip were ordered. Patient was subsequently admitted to the medicine service. Impression & Plan GI bleed, Symptomatic anemia Critical Care Time I have personally spent greater than 95 minutes of critical care time in direct management of this patient. This includes bedside care, interpretation of diagnostic studies, and testing, discussion with consultants, patient, and family members, and other require inpatient management activities. This 95 minutes is in excess of all separately billable procedures. Critical Care Time: Yes Total Critical Care Time: 95 Discharge Plan Visit Data *Final* Discharge Date/Time: 01/27/19 14:00 Chief Complaint: Cardiac Assessment Stated Complaint: IRREGULAR HEART RATE - REF BY ED Provider: Jalen Whitehead Discharge Problem: GI bleed, Symptomatic anemia Patient Disposition: Admitted As Inpatient Discharge Instructions Interventions: ED Discharge Assessment Last Done: 01/27/19 14:00 Discharge Problem: GI bleed Qualifiers: GI bleed type/associated pathology: unspecified gastrointestinal hemorrhage type Qualified Code(s): K92.2 - Gastrointestinal hemorrhage, unspecified The scribe's documentation has been prepared under my direction and personally reviewed by me in its entirety. I confirm that the note above accurately reflects all work, treatment, procedures, and medical decision making performed by me.
[2019-01-28] MEDS: METOPROLOL TARTRATE 25 MG TAB PO SCH (08:55)
[2019-01-28] MEDS ORDERED: LOVASTATIN 20 MG TAB PO SCH (09:00)
[2019-01-28] MEDS ORDERED: VALSARTAN 80 MG TAB PO SCH (09:00)
[2019-01-28] MEDS ORDERED: PANTOprazole 40 MG TAB PO SCH ×2 (09:00→21:00)
--- NOTE | 2019-01-28 13:35 | Discharge Summary ---
Date of Service January 28, 2019 Admission HPI Per Admitting Provider 88 y/o F Hx HTN, HLD, obese, pulmonary edema following transfusion, hemorrhoids and colonic AVM leading to GI bleed x 2. She was admitted for a LGI bled 12/2017 and required a colonoscopy/cauterization. The pt presents with a chief complaint of SOB over the last few days. She denies CP and was not lightheaded. She did not notice gross blood in her stool and does not describe black stool. Initial labs on arrival to the ER were notable for a hemoglobin of 5.1. A rectal exam was heme+. The pt does not speak Swazi. Granddaughter at bedside translated from [place]. PMH 1) Colonic AVM - admitted twice and required colonoscopy and multiple transfusions 2016, 2018 2) Hemorrhoids 3) HTN 4) HLD 5) Obese 6) Pulmonary edema owing to transfusion 2018 Surgical: 1) TKA 2) Hernia repair Social: Does not smoke or drink - lives with family. She speaks Nikki only Family: Cause of parents not known - states "old age" Principal Diagnosis Ocult GI Bleed, Severe symptomatic anemia Discharge Exam Constitutional WD/WN, vitals as above Eyes PERRL, conjunctivae normal, anicteric sclerae ENMT external ear and nose normal, oropharynx normal Neck trachea midline, no thyromegaly Respiratory normal respiratory effort, lungs clear to auscultation Cardiovascular Rate/Rhythm: regular rate and regular rhythm Heart Sounds: + murmur (3/6 at LLSB) Extremities: no edema Gastrointestinal (Abdomen) Inspection/Auscultation: abdomen normal to inspection (obese) and normal bowel sounds Percussion/Palpation: + abdomen tender (mild, in epigastric region, no guarding or rebound) Musculoskeletal Extremities: extremities normal to inspection; no cyanosis and no clubbing Skin no rashes, warm and dry Neurologic moves all extremities and awake; no focal motor deficits Psychiatric A+Ox3, euthymic affect Discharge Data Allergies Allergy/AdvReac Type Severity Reaction Status Date / Time lisinopril AdvReac Mild Cough Verified 01/28/19 13:40 Consultations Gastroenterology Ordered Studies 01/27/19 10:50 CT angio abdomen pelvis w con Stat CT angio chest dissec wo/w con Stat CXR Hospital Course (1) GI bleed: This pt is an 88 y/o F Hx HTN, HLD, obese, pulmonary edema following transfusion, hemorrhoids and colonic AVM leading to GI bleed x 2. She was admitted for a LGI bled 12/2017 and required a colonoscopy/cauterization. She presented with a chief complaint of SOB over the last few days. She denies CP and was not lightheaded. She did not notice gross blood in her stool and does not describe black stool. Initial labs on arrival to the ER were notable for a hemoglobin of 4.4. A rectal exam was heme+. 1) GI bleed/symptomatic anemia - GI consulted - she was transfused 4 units PRBCs with hgb 9.4 the following day. She had no obvious bleeding. GI recommended endoscopy but pt wanted to go home and follow up with her primary GI doctor as an outpatient. She was given IV Lasix with transfusions due to history of pulmonary edema. She was having epigastric pain and heartburn for a while now and her granddaughter (who is a PA) had started her on omeprazole bid about one week prior to admission. SHe was advised to continue the PPI bid and follow up with GI. She had no lightheadedness and her SOB was resolved after receiving transfusion. She should have a CBC next week for follow up. 2) HTN - she can remain on Metoprolol and Diovan. She was discontinued from lisinopril due to cough 3) HLD - cont statin 4) She takes daily Lasix - she received a total of 60mg IV additional with her transfusions. Can restart home po lasix after discharge 5) abnormal ovarian cysts on CT-->unchanged from previous and likely benign but due to her age, should follow up with CVT RN as outpatient Stable for dc to home Total Time Total Time Spent Total Time Spent (In Minutes): >30 min Total Time Includes: Examination of the Patient, Discharge Planning, Medication Reconciliation and Communication With Other Providers (GI-Dr. Dai) Discharge Plan Discharge Items Patient Disposition: Home - Self-Care Reason For Visit: GI BLEED Discharge Diagnosis: GI Bleeding, severe anemia Condition: Fair Discharge Goals: Diagnostic testing, Learn about illness and Therapeutic intervention Activity: Resume your previous activity Bathing: No limitations Exercise/Sports: As tolerated Non-emergency contact: Primary Care Provider and Grades 1 6 Tutor Call non-emergency contact if: you have any medication questions and your symptoms worsen Follow-up/Referrals: Javier Yoon DO [Physician] - (Call for follow up visit within 2 weeks) Maximus Diaz MD [Primary Care Provider] - 01/30/19 (Follow up as scheduled) Diet: Heart Healthy Addtl Provider Instructions: You were admitted because of severe anemia. You had a blood transfusion and had improvement in your symptoms. You are most likely bleeding very slowly from somewhere in your stomach or intestines. Please follow up with your doctor to repeat your blood work and discuss having a colonoscopy in the future. Nikki: gambheer eneemiya ke kaaran aapako bhartee shahram gaya jann. [place] paas rakt aadhaan jann aur [place] lakshanon mein sudhaar jann. [place] pet ya [place] mein kaheen se bahut dheere-dheere khoon dudley melchor yulia. krpaya apane doktar ke saath apane rakt ke kaam ko doharaane aur bhavishy mein ek kolonoskopee toan chung. Prescriptions: Continued lovastatin 40 mg Tablet 60 mg PO DAILY RF: 0 aspirin [Aspir-81] 81 mg Tablet,Delayed Release (Dr/Ec) 81 mg PO DAILY RF: 0 ranitidine HCl [Zantac] 150 mg Tablet 150 mg PO HS RF: 0 valsartan [Diovan] 160 mg tablet 160 mg PO DAILY RF: 0 metoprolol tartrate 25 mg Tablet 25 mg PO BID RF: 0 Linzess 145 mcg Capsule 145 mcg PO QAM RF: 0 furosemide 20 mg Tablet 20 mg PO DAILY RF: 0 omeprazole 20 mg Capsule,Delayed Release(Dr/Ec) 20 mg PO BID RF: 0 Stand-Alone Forms: [facility] Discharge Orders: Discharge Order (Routine); Ordered 01/28/19 Ordered By: Ginna Soriano Admission Data Admit Date/Time: 01/27/19 13:10 Attending Provider: Ginna Soriano Admit Provider: Juno Finney Primary Care Provider: Maximus Diaz Other Providers: Juno Finney ; Javier Yoon Service: Telemetry Other Interventions: Discharge Summary Assessment (RN) Last Done: 01/28/19 13:18
--- NOTE | 2019-01-28 13:57 | Gastroenterology Progress Note ---
Date of Service January 28, 2019 No complaints overnight, no gross GIB. Feels well. Exam: abd soft NT Labs reviewed A/P: H/o AVM's now admit profound microcytic anemia without evidence of acute GIB. -- i discussed yield of repeat cscopy; pt and family do not wish to proceed with this, but will d/w Dr. Yoon. I recommended inpt obs for 1 more day, but they are requesting to leave -- please ask PCP to check hgb on Wednesday if discharged. Call with questions. Physical Exam Vital Signs (Past 24 Hours): Last Vital Signs Temp 36.6 C 01/28/19 13:18 Pulse 64 01/28/19 13:18 Resp 18 01/28/19 13:18 BP 120/65 01/28/19 13:18 Pulse Ox 92 01/28/19 13:18
--- NOTE | 2019-01-31 11:44 | Coding Query ---
CONGESTIVE HEART FAILURE To Promote full compliance with coding requirements relating to patient care, physician participation is requested in all cases of airport utility worker uncertainty. Please assist us with the following questions. A diagnosis of Congestive Heart Failure is documented in the patient's medical record. To accurately code this diagnosis and to compare patient severity, we ask that you specify the type of heart failure by placing an X within the parenthesis (x). SYSTOLIC HEART FAILURE ( ) Acute ( ) Chronic ( ) Acute on Chronic ( ) Rheumatic ( ) Unknown DIASTOLIC HEART FAILURE ( ) Acute ( x) Chronic ( ) Acute on Chronic ( ) Rheumatic ( ) Unknown COMBINED SYSTOLIC AND DIASTOLIC HEART FAILURE ( ) Acute ( ) Chronic ( ) Acute on Chronic ( ) Rheumatic ( ) Unknown Was the CHF Present On Admission? Please check the appropriate box: (x ) Present on Admission ( ) Not Present On Admission ( ) Clinically undetermined Thank you Margy Alfredo [facility] HOSPITALCrissy
--- NOTE | 2019-01-31 11:44 | Coding Query ---
ANEMIA To promote full compliance with coding requirements relating to patient care, physician participation is requested in all cases of certified coder uncertainty. Please assist us with the question(s) below: Coding Question(s): The record reflects the following clinical findings: Severe Anemia and GI Bleeding If these findings are indicative of anemia, please specify the known or suspected type by placing an "X" within the parenthesis (x). If other, please document type. Examples are: ( ) Acute blood loss anemia ( ) Acute Postoperative blood loss anemia ( ) Acute postoperative anemia due to dilutional fluids (x ) Chronic blood loss anemia ( ) Anemia of chronic disease ( ) Aplastic anemia ( ) Anemia due to renal disease ( ) Anemia in neoplastic disease ( ) Iron deficient anemia ( ) Anemia, unspecified or other ( ) Other: (please specify) ( ) Unable to determine Thank you Margy DONG
== END 2019-01-28 14:40 | disposition home or self-care (01) ==
LOC: ED 09:32 → SUATTDRO 13:10 → 2S 13:10

== ENCOUNTER 2019-06-26 12:10 | Inpatient (IN) ==
[2019-06-26] MEDS ORDERED: SODIUM CHLORIDE 0.9% 1000ML 1,000 ML IV SCH (12:30)
[2019-06-26 12:51] LABS: Hematocrit (blood only) 24.1 % (37-47); Hemoglobin 6.5 g/dL (12.0-16.0); Mean Corpuscular Volume 77.7 fL (80-100); Mean Platelet Volume 9.6 fL (7.4-10.4); Platelet Count 254 K/uL (130-400); RDW Coefficient of Variation 17.8 % (11.5-14.5)
--- NOTE | 2019-06-26 12:54 | XRay Report ---
XR chest 1V portable CLINICAL HISTORY: finesse COMPARISON STUDY: Chest CT January 27, 2019. Chest radiograph February 02, 2019. FINDINGS: Lung volumes are normal. There is no pneumothorax or pleural effusion. No consolidation or evidence for pulmonary edema. Cardiomegaly is unchanged. IMPRESSION: No acute cardiopulmonary findings. Electronically signed by: Fili Wick M.D. 06/26/2019 12:53 PM
[2019-06-26 12:56] LABS: iSTAT Creatinine 1.2 mg/dl (0.6-1.3); iSTAT Hemoglobin 7.8 g/dl (12.0-16.0); iSTAT Ionized Calcium 1.21 mmol/l (1.12-1.32); iSTAT Potassium 4.9 mEq/L (3.3-5.0)
[2019-06-26 13:01] LABS: INR 1.1 (0.9-1.1); Partial Thromboplastin Ratio 0.8; Partial Thromboplastin Time 21.4 Seconds (21.0-31.0); Prothrombin Time 11.6 Seconds (9.0-12.0)
[2019-06-26 13:06] LABS: Alanine Aminotransferase 14 U/L (12-78); Albumin Level 3.1 gm/dl (3.4-5.0); Aspartate Aminotransferase 13 U/L (15-37); Bilirubin Direct < 0.1 mg/dl (0-0.2); Blood Urea Nitrogen 22 mg/dl (7-18); Calcium 8.2 mg/dl (8.5-10.1); Carbon Dioxide 26 mmol/L (21-32); Chloride 111 mmol/L (98-107); Creatinine Clr Calc Pharmacy 34.6 ml/min; Glucose 116 mg/dl (70-99); Potassium 4.8 mmol/L (3.5-5.1); Sodium 141 mmol/L (136-145)
[2019-06-26 13:11] LABS: Alkaline Phosphatase 55 U/L (45-117); Bilirubin,Total 0.2 mg/dl (0.2-1); Total Protein 6.4 gm/dl (6.4-8.2); Troponin I < 0.015 ng/ml (0-0.045)
[2019-06-26] MEDS ORDERED: SODIUM CHLORIDE 0.9% 250 ML IV PRN (13:12)
[2019-06-26 13:15] LABS: Anisocytosis Present; Basophils # (auto) 0.02 K/uL (0-0.2); Basophils % (auto) 0.4 %; Eosinophils # (auto) 0.11 K/uL (0-0.5); Eosinophils % (auto) 2.3 %; Immature Granulocytes # (auto) 0.01 K/uL (0.00-0.02); Immature Granulocytes % (auto) 0.2 %; Lymphocytes # (auto) 1.34 K/uL (1.2-3.4); Lymphocytes % (auto) 27.9 %; Monocytes # (auto) 0.45 K/uL (0.11-0.59); Monocytes % (auto) 9.4 %; Neutrophils # (auto) 2.87 K/uL (1.4-6.5); Neutrophils % (auto) 59.8 %; Polychromasia 1+; Spherocytes 1+
[2019-06-26] MEDS ORDERED: PANTOprazole 80 MG in DEXTROSE 5% 100 ML IV ONE (13:30)
[2019-06-26] MEDS ORDERED: IOVERSOL 100ml IV PRN (14:13)
[2019-06-26] MEDS: PANTOprazole 40 MG in DEXTROSE 5% 100 ML IV SCH ×2 (14:43→19:09)
--- NOTE | 2019-06-26 15:14 | CT Scan Report ---
CT OF THE ABDOMEN AND PELVIS WITH CONTRAST CLINICAL HISTORY: Left upper quadrant abdominal pain. COMPARISON STUDY: CTA of the abdomen and pelvis January 27, 2019. TECHNIQUE: Following IV administration of 93 mL of Optiray-320, axial images of the abdomen and pelvi s were obtained from the lung bases to the proximal femurs. Images were reviewed in the axial, sagitt al, and coronal planes. IV contrast was administered without complication. Automated exposure contro l was utilized for the study. A dose lowering technique was utilized adhering to the principles of A JHONATAN. CT DOSE: 902.28 mGy.cm FINDINGS: Moderate cardiomegaly is noted. No pneumatosis, free air or portal venous gas is present. T he liver, spleen, adrenal glands, kidneys and pancreas are unremarkable. There is no biliary or pancr eatic ductal dilatation. No peripancreatic or pericholecystic infiltration. Postoperative findings wi thin the lumbar spine are noted. There is colonic diverticulosis without evidence for acute diverticu litis. Cystic left ovarian lesion is unchanged and CT of October 31, 2016. This is indeterminate but probably benign. There is no ascites or lymphadenopathy. There are no suspicious osseous lesions. Ex tensive plaque of the abdominal aorta is noted. This is unchanged. IMPRESSION: 1. No acute process within the abdomen or pelvis. 2. Colonic diverticulosis without evidence for acute diverticulitis. No bowel obstruction. Electronically signed by: Fili Wick M.D. 06/26/2019 3:13 PM
--- NOTE | 2019-06-26 17:00 | History & Physical Report ---
Date of Service June 26, 2019 Assessment & Plan (1) Anemia: admit telemetry Likely GI bleed as patient has history of multiple Hgb 6.5 in ED - given 2 units prbcs, will recheck hbg this evening and again overnight, cbc am Protonix gtt, though I suspect this is a colonic bleed as she has had in the past. EGD 02/21 was without abnormality other than gastritis Consult Dr. Yoon NPO - no IVF for now as patient has history of pulmonary edema with blood transfusion hold ASA (2) Hypertension: as high as 206/86 in the ED, denies chest pain but does have right arm pain continue home valsartan, metoprolol will add hydralazine prn Troponin in ED initially normal, repeat in 6 hours (3) GERD (gastroesophageal reflux disease): Protonix gtt as above, ranitidine (4) CHF (congestive heart failure): chronic diastolic continue furosemide, Is&Os, daily weights History of Present Illness Primary Care Provider: Maximus Diaz MD 89 y/o F Hx HTN, HLD, obese, pulmonary edema following transfusion, hemorrhoids 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 She was admitted for a LGI bled 12/2017 and required a colonoscopy/cauterization. She recently had a colonoscopy on 02/21 which showed multiple non bleeding angioectasias, hemorrhoids, and removal of two polyps of which pathology revealed them to be tubular adenomas. She presents today for GI bleed. She was feeling weak with shoulder pain and so had blood work drawn by her pcp on Wednesday. Her pcp called this morning to tell her to go to the ED for severe anemia. She complains of abdominal pain, nausea, right shoulder pain, and cough The pt does not speak Telugu. History was provided by granddaughter and discussion took place via scallop binder as patient speaks Cory. Allergies Allergy/AdvReac Type Severity Reaction Status Date / Time lisinopril AdvReac Mild Cough Verified 06/26/19 12:44 Home Medications Home Medications Medication Instructions Recorded Confirmed Type Linzess 145 mcg PO QAM 09/20/18 06/26/19 History aspirin [Aspir-81] 81 mg PO QAM 09/20/18 06/26/19 History metoprolol tartrate 25 mg PO BID 09/20/18 06/26/19 History ranitidine HCl [Zantac] 150 mg PO HS 09/20/18 06/26/19 History valsartan [Diovan] 160 mg PO HS 09/20/18 06/26/19 History furosemide 20 mg PO QAM 01/27/19 06/26/19 History omeprazole 20 mg PO BID 01/28/19 06/26/19 History Lvzigttkewf-Vnzsr-OFL Complex 1 tab PO DAILY 02/15/19 06/26/19 History lactulose 15 ml PO DAILY PRN 02/15/19 06/26/19 History lovastatin 40 mg tablet 60 mg PO HS #135 tab 06/13/19 06/26/19 Rx acetaminophen [Tylenol Extra 500 mg PO Q6H PRN 06/26/19 06/26/19 History Strength] Past Med/Surg History Medical History Hypercholesteremia (Chronic) CHF (congestive heart failure) Anemia Constipation GERD (gastroesophageal reflux disease) Hypertension Family History Other No family history of adverse response to anesthesia Social History Preferred Language: Cory Communication Ability: Impaired Communication Ability Comment: family to interpret Communication Tools: Other 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 Beliefs That Will Affect Care: None Current Living Situation: Family Current Living Situation Comment: lives with son and family Other Information That Helps Us Care for You: No Feels Safe at Home: Yes Smoking Status: Never smoker Second Hand Exposure: No ; Hx Alcohol Use: No Hx Substance Use: No Review of Systems Review of Systems: All systems reviewed & are unremarkable except as noted in HPI & below Physical Exam Physical Exam: General: no distress Eyes: normal inspection, PERLL Respiratory: chest non tender, clear to auscultation, normal breath sounds, no respiratory distress, no accessory muscle use Cardiac: regular rate and rhythm, no rub or gallop, no murmur, no edema, no jvd GI/: active bowel sounds, llq tenderness to palpation, soft, distended Extremities: normal range of motion, normal strength, non tender Neuro:oriented x 3, moves all extremities Psych: alert, normal mood and affect Skin: normal color, dry Results & Data Vital Signs (Past 12 Hours) Vital Signs Temp Pulse Pulse Resp BP BP Pulse Ox 06/26/19 16:22 37.1 C 74 16 206/86 H 100 06/26/19 15:30 36.8 C 72 22 197/85 H 97 06/26/19 15:00 72 16 182/76 H 97 06/26/19 14:49 36.7 C 06/26/19 14:47 68 20 175/82 H 96 06/26/19 14:41 36.7 C 06/26/19 14:40 76 22 175/88 H 98 06/26/19 14:26 36.3 C L 69 18 177/72 H 97 06/26/19 12:57 76 20 146/86 H 97 06/26/19 12:43 97 06/26/19 12:14 36.7 C 80 22 108/61 97 Supervising Physician Co-Signing Physician Notes I supervised Jada Rebollar NP on this patient's care. I discussed the plan of care with her with the plan being as written in her note except for any following changes/exceptions: None. PG Care Time/CCT Total # of Minutes Spent Total Time Spent with Patient: Total time spent is greater than 50% in coordination of care (as documented) at patient's floor/unit and/or counseling patient:
--- NOTE | 2019-06-26 17:17 | Emergency Department Note ---
Entered by Brandy South acting as a scribe for Albert Kothari History of Present Illness General Chief complaint: Referred by Doctor Stated complaint: DOCTOR SENT TO ER FOR LOW Time Seen by Provider: 06/26/19 12:19 Source: patient History of Present Illness Provider complaint: Abdominal pain Onset (ago): day(s) 3 Location: abdomen Pain Consistency: + other (persistent) Maximum Pain Intensity: 10 Current Pain Intensity: 10 Associated symptoms: + denies other symptoms (negative dysuria and hematuria ), + shortness of breath and + other (blood in stool, ) The patient is a 89 year old female who presents to the Emergency Room with complaints of a low hemoglobin. The patient's family member at bedside states she see her PCP who ordered blood tests on Wednesday and then received a call this morning saying that her blood counts were low. The patient also reports persistent abdominal pain in the LUQ that started 3 days ago. The patient also complains of shortness of breath. She denies any dysuria or hematuria. She does report some blood in her stool. No chest pain. Home Medications Home Medications Medication Instructions Recorded Confirmed Type Linzess 145 mcg PO QAM 09/20/18 06/26/19 History aspirin [Aspir-81] 81 mg PO QAM 09/20/18 06/26/19 History metoprolol tartrate 25 mg PO BID 09/20/18 06/26/19 History ranitidine HCl [Zantac] 150 mg PO HS 09/20/18 06/26/19 History valsartan [Diovan] 160 mg PO HS 09/20/18 06/26/19 History furosemide 20 mg PO QAM 01/27/19 06/26/19 History omeprazole 20 mg PO BID 01/28/19 06/26/19 History Soyvdfihlny-Khvej-ZSK Complex 1 tab PO DAILY 02/15/19 06/26/19 History lactulose 15 ml PO DAILY PRN 02/15/19 06/26/19 History lovastatin 40 mg tablet 60 mg PO HS #135 tab 06/13/19 06/26/19 Rx acetaminophen [Tylenol Extra 500 mg PO Q6H PRN 06/26/19 06/26/19 History Strength] Allergies Allergy/AdvReac Type Severity Reaction Status Date / Time lisinopril AdvReac Mild Cough Verified 06/26/19 12:44 Past Med/Surg History Medical History Hypercholesteremia (Chronic) CHF (congestive heart failure) Anemia Constipation GERD (gastroesophageal reflux disease) Hypertension Family History Other No family history of adverse response to anesthesia Social History Preferred Language: Cory Communication Ability: Impaired Communication Tools: Other Loom 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 and A total of 10 systems reviewed and were otherwise negative Physical Exam Vital Signs Vital Signs - 24 hr 06/26/19 12:14 06/26/19 12:43 06/26/19 12:57 Temperature 36.7 C Temperature Source Oral Sepsis Recent Fever Within 48 Hours No Sepsis New/Unexplained Change in Mental Status No Sepsis Action Taken by Nursing No Action Required Pulse Rate 80 Pulse Rate [Right Finger] 76 Pulse Rhythm Regular Pulse Strength Normal Respiratory Rate 22 20 Respiratory Effort / Characteristics Non-Labored Spontaneous Non-Labored Respiratory Depth Normal Normal Respiratory Pattern Regular Blood Pressure 108/61 Blood Pressure [Right Arm] 146/86 H Blood Pressure Mean 76 Blood Pressure Mean [Right Arm] 106 Blood Pressure Position Sitting Pulse Oximetry 97 97 97 Oxygen Delivery Method Room Air Room Air Room Air 06/26/19 14:26 06/26/19 14:40 06/26/19 14:41 Temperature 36.3 C L 36.7 C Temperature Source Oral Oral Oral Sepsis Recent Fever Within 48 Hours Sepsis New/Unexplained Change in Mental Status Sepsis Action Taken by Nursing Pulse Rate 69 76 Pulse Rate [Right Finger] Pulse Rhythm Pulse Strength Respiratory Rate 18 22 Respiratory Effort / Characteristics Respiratory Depth Respiratory Pattern Blood Pressure 177/72 H 175/88 H Blood Pressure [Right Arm] Blood Pressure Mean 107 117 Blood Pressure Mean [Right Arm] Blood Pressure Position Pulse Oximetry 97 98 Oxygen Delivery Method 06/26/19 14:47 06/26/19 14:49 06/26/19 15:00 Temperature 36.7 C Temperature Source Oral Oral Sepsis Recent Fever Within 48 Hours Sepsis New/Unexplained Change in Mental Status Sepsis Action Taken by Nursing Pulse Rate 68 72 Pulse Rate [Right Finger] Pulse Rhythm Pulse Strength Respiratory Rate 20 16 Respiratory Effort / Characteristics Respiratory Depth Respiratory Pattern Blood Pressure 175/82 H 182/76 H Blood Pressure [Right Arm] Blood Pressure Mean 113 111 Blood Pressure Mean [Right Arm] Blood Pressure Position Pulse Oximetry 96 97 Oxygen Delivery Method 06/26/19 15:30 06/26/19 16:22 Temperature 36.8 C 37.1 C Temperature Source Oral Oral Sepsis Recent Fever Within 48 Hours Sepsis New/Unexplained Change in Mental Status Sepsis Action Taken by Nursing Pulse Rate 72 74 Pulse Rate [Right Finger] Pulse Rhythm Pulse Strength Respiratory Rate 22 16 Respiratory Effort / Characteristics Respiratory Depth Respiratory Pattern Blood Pressure 197/85 H 206/86 H Blood Pressure [Right Arm] Blood Pressure Mean 122 126 Blood Pressure Mean [Right Arm] Blood Pressure Position Pulse Oximetry 97 100 Oxygen Delivery Method GENERAL: She is oriented to person, place, and time. She appears well-developed and well-nourished. She does not appear distressed. HENT: Exam performed. Head: Normocephalic and atraumatic. Right Ear: External ear normal. No mastoid tenderness. Left Ear: External ear normal. No mastoid tenderness. Mouth/Throat: The oropharynx is clear and moist. No trismus in the jaw. No dental abscesses or uvula swelling. No oropharyngeal exudate or tonsillar abscesses. EYES: Conjunctivae and EOM are normal. Pupils are equal, round, and reactive to light. Right eye exhibits no discharge. Left eye exhibits no discharge. No scleral icterus. NECK: Normal range of motion. Neck supple. No JVD present. No spinous process tenderness present. No carotid bruit present. No rigidity. No tracheal deviation and normal range of motion present. No Brudzinski's sign and no Kernig's sign noted. CV: Normal rate, regular rhythm, normal heart sounds and intact distal pulses. There is no peripheral edema. Palpable radial pulses bue. PULM/CHEST: Effort normal and breath sounds normal. No respiratory distress. No stridor. She has no wheezes. She has no rales. Chest Wall: She exhibits no tenderness. ABD: Abdomen is distended. Pain of palpation of the LUQ. The abdomen is soft. Bowel sounds are normal. No mass is present. There is no rebound, no guarding, no Zapata's sign and no tenderness at McBurney's point. Rovsig negative RECTAL: Hemoccult positive. MUSC/SKEL: Normal range of motion. There is no peripheral edema, tenderness or deformity. LYMPH: No cervical adenopathy. NEURO: She is alert and oriented to person, place, and time. She has normal strength. No cranial nerve deficit or sensory deficit. Coordination and gait normal. GCS eye subscore is 4. GCS verbal subscore is 5. GCS motor subscore is 6. cerbellar tests wnl. SKIN: Skin is warm and dry. She is not diaphoretic. PSYCH: She has a normal mood and affect. Her behavior is normal. Judgment and thought content normal. Course 1222: Past medical records reviewed. The patient was evaluated in room B06. A complete history and physical exam was performed. EMR was reviewed. The patient had bloodwork done on June 24, and Hemoglobin was 6.8. She had a CT of her abdoment done on January 27 which showed no abdominal aortic aneurysm, diverticulitis, and had patent vasculature despite extensive atherosclerotic plaque with at least 50% stenosis of the artery. The patient had an EGD and colonoscopy done in February. The EGD was negative, and the colonoscopy showed 2 polyps with multiple colonic angioectasia. She has had multiple GI bleed episodes and had a recent blood transfusion in January. 1523: Vital signs stable. Labs show hemoglobin of 6.5, down from 6.[address] of the abdomen shows diverticulosis, without diverticulitis. The patient will be transfused 2 units packed red blood cells and be started on Protonix drip and admitted to the hospital [facility]. [facility]. Administered Medications Sodium Chloride (Nss 1000ml) 1,000 mls @ 125 mls/hr IV .Q8H [facility] Stop: 07/26/19 12:29 Last Admin: 06/26/19 12:59 Dose: 125 mls/hr Documented by: [id number] Pantoprazole Sodium 40 mg/ (Dextrose) 100 mls @ 20 mls/hr IV Q5H [facility] Stop: 07/26/19 13:44 Last Admin: 06/26/19 14:43 Dose: 20 mls/hr Documented by: [id number] Ioversol (Optiray 320 100ml) 93 ml IV ONCE PRN PRN Reason: Interaction Checking Stop: 06/30/19 14:12 Last Admin: 06/26/19 14:14 Dose: 93 ml Documented by: [id number] Discontinued Medications Pantoprazole Sodium 80 mg/ (Dextrose) 120 mls @ 480 mls/hr IV NOW ONE Stop: 06/26/19 13:44 Last Infusion: 06/26/19 14:43 Dose: 0 mls/hr Documented by: [id number] Admin: 06/26/19 14:22 Dose: 480 mls/hr Documented by: [id number] Medical Decision Making Medical Records Attestation: I reviewed the patient's medical records. Home Medications Current Medication List: was personally reviewed by me Laboratory Data Attestation: I reviewed the patient's lab results. Result diagrams: 06/26/19 12:34 06/26/19 12:34 Lab Results 06/26/19 06/26/19 06/26/19 Range/Units 12:34 12:34 12:34 WBC 4.80 (4.8-10.8) K/uL RBC 3.10 L (4.2-5.4) M/uL Hgb 6.5 L* (12.0-16.0) g/dL POC Hgb (12.0-16.0) g/dl Hct 24.1 L (37-47) % POC Hct (37-47) % MCV 77.7 L (80-100) fL MCH 21.0 L (25-34) pg MCHC 27.0 L (32-36) g/dL RDW Std Deviation 50.0 H (36.4-46.3) fL RDW Coeff of Brandon 17.8 H (11.5-14.5) % Plt Count 254 (130-400) K/uL MPV 9.6 (7.4-10.4) fL Immature Gran % (Auto) 0.2 % Neut % (Auto) 59.8 % Lymph % (Auto) 27.9 % Allen % (Auto) 9.4 % Eos % (Auto) 2.3 % Baso % (Auto) 0.4 % Immature Gran # (Auto) 0.01 (0.00-0.02) K/uL Neut # (Auto) 2.87 (1.4-6.5) K/uL Lymph # (Auto) 1.34 (1.2-3.4) K/uL Allen # (Auto) 0.45 (0.11-0.59) K/uL Eos # (Auto) 0.11 (0-0.5) K/uL Baso # (Auto) 0.02 (0-0.2) K/uL Polychromasia 1+ Anisocytosis Present Spherocytes 1+ PT (9.0-12.0) Seconds INR (0.9-1.1) APTT (21.0-31.0) Seconds PTT Ratio POC Sodium (135-144) mEq/L Sodium 141 (136-145) mmol/L POC Potassium (3.3-5.0) mEq/L Potassium 4.8 (3.5-5.1) mmol/L POC Chloride (101-112) mEq/L Chloride 111 H (98-107) mmol/L Carbon Dioxide 26 (21-32) mmol/L POC Total CO2 (24-31) mEq/l Anion Gap 4.0 (3-11) POC Anion Gap (16-25) mmol/L POC BUN (7-18) mg/dl BUN 22 H (7-18) mg/dl Creatinine 1.11 (0.6-1.2) mg/dl POC Creatinine (0.6-1.3) mg/dl Est Cr Clr Drug Dosing 34.6 ml/min Est GFR ( Amer) 51.0 Est GFR (Non-Af Amer) 44.0 BUN/Creatinine Ratio 20.0 (10-20) Glucose 116 H (70-99) mg/dl POC Glucose (other) (70-99) mg/dl Calcium 8.2 L (8.5-10.1) mg/dl POC Ioniz Calcium Bertha (1.12-1.32) mmol/l Total Bilirubin 0.2 (0.2-1) mg/dl Direct Bilirubin < 0.1 (0-0.2) mg/dl AST 13 L (15-37) U/L ALT 14 (12-78) U/L Alkaline Phosphatase 55 (45-117) U/L Troponin I < 0.015 (0-0.045) ng/ml Total Protein 6.4 (6.4-8.2) gm/dl Albumin 3.1 L (3.4-5.0) gm/dl Lipase 202 (73-393) U/L Blood Type B Positive Antibody Screen NEGATIVE Crossmatch See Detail 06/26/19 06/26/19 Range/Units 12:34 12:41 WBC (4.8-10.8) K/uL RBC (4.2-5.4) M/uL Hgb (12.0-16.0) g/dL POC Hgb 7.8 L (12.0-16.0) g/dl Hct (37-47) % POC Hct 23 L (37-47) % MCV (80-100) fL MCH (25-34) pg MCHC (32-36) g/dL RDW Std Deviation (36.4-46.3) fL RDW Coeff of Brandon (11.5-14.5) % Plt Count (130-400) K/uL MPV (7.4-10.4) fL Immature Gran % (Auto) % Neut % (Auto) % Lymph % (Auto) % Allen % (Auto) % Eos % (Auto) % Baso % (Auto) % Immature Gran # (Auto) (0.00-0.02) K/uL Neut # (Auto) (1.4-6.5) K/uL Lymph # (Auto) (1.2-3.4) K/uL Allen # (Auto) (0.11-0.59) K/uL Eos # (Auto) (0-0.5) K/uL Baso # (Auto) (0-0.2) K/uL Polychromasia Anisocytosis Spherocytes PT 11.6 (9.0-12.0) Seconds INR 1.1 (0.9-1.1) APTT 21.4 (21.0-31.0) Seconds PTT Ratio 0.8 POC Sodium 140 (135-144) mEq/L Sodium (136-145) mmol/L POC Potassium 4.9 (3.3-5.0) mEq/L Potassium (3.5-5.1) mmol/L POC Chloride 107 (101-112) mEq/L Chloride (98-107) mmol/L Carbon Dioxide (21-32) mmol/L POC Total CO2 24 (24-31) mEq/l Anion Gap (3-11) POC Anion Gap 15.0 L (16-25) mmol/L POC BUN 22 H (7-18) mg/dl BUN (7-18) mg/dl Creatinine (0.6-1.2) mg/dl POC Creatinine 1.2 (0.6-1.3) mg/dl Est Cr Clr Drug Dosing ml/min Est GFR ( Amer) Est GFR (Non-Af Amer) BUN/Creatinine Ratio (10-20) Glucose (70-99) mg/dl POC Glucose (other) 115 H (70-99) mg/dl Calcium (8.5-10.1) mg/dl POC Ioniz Calcium Bertha 1.21 (1.12-1.32) mmol/l Total Bilirubin (0.2-1) mg/dl Direct Bilirubin (0-0.2) mg/dl AST (15-37) U/L ALT (12-78) U/L Alkaline Phosphatase (45-117) U/L Troponin I (0-0.045) ng/ml Total Protein (6.4-8.2) gm/dl Albumin (3.4-5.0) gm/dl Lipase (73-393) U/L Blood Type Antibody Screen Crossmatch Imaging Data Radiologist's Impression: Radiology results as stated below per my review and the radiologist's interpretation: XR chest 1V portable CLINICAL HISTORY: finesse COMPARISON STUDY: Chest CT January 27, 2019. Chest radiograph February 02, 2019. FINDINGS: Lung volumes are normal. There is no pneumothorax or pleural effusion. No consolidation or evidence for pulmonary edema. Cardiomegaly is unchanged. IMPRESSION: No acute cardiopulmonary findings. Electronically signed by: Fili Wick M.D. 06/26/2019 12:[address] OF THE ABDOMEN AND PELVIS WITH CONTRAST CLINICAL HISTORY: Left upper quadrant abdominal pain. COMPARISON STUDY: CTA of the abdomen and pelvis January 27, 2019. TECHNIQUE: Following IV administration of 93 mL of Optiray-320, axial images of the abdomen and pelvis were obtained from the lung bases to the proximal femurs. Images were reviewed in the axial, sagittal, and coronal planes. IV contrast was administered without complication. Automated exposure control was utilized for the study. A dose lowering technique was utilized adhering to the principles of ALARA. CT DOSE: 902.28 mGy.cm FINDINGS: Moderate cardiomegaly is noted. No pneumatosis, free air or portal venous gas is present. The liver, spleen, adrenal glands, kidneys and pancreas are unremarkable. There is no biliary or pancreatic ductal dilatation. No peripancreatic or pericholecystic infiltration. Postoperative findings within the lumbar spine are noted. There is colonic diverticulosis without evidence for acute diverticulitis. Cystic left ovarian lesion is unchanged and CT of October 31, 2016. This is indeterminate but probably benign. There is no ascites or lymphadenopathy. There are no suspicious osseous lesions. Extensive plaque of the abdominal aorta is noted. This is unchanged. IMPRESSION: 1. No acute process within the abdomen or pelvis. 2. Colonic diverticulosis without evidence for acute diverticulitis. No bowel obstruction. Electronically signed by: Fili Wick M.D. 06/26/2019 3:13 PM ECG Data Attestation: I personally reviewed and interpreted this ECG as follows: Indication: abdominal pain Rate (beats per minute): 70 Rhythm: normal sinus Findings: + other (LA, QRS, and QTC intervals are within normal limits. ); no ST depression and no ST elevation Blood Pressure Blood Pressure Findings: Elevated blood pressure Blood Pressure Disposition: further management by hospitalist [facility] Narrative 1222: Past medical records reviewed. The patient was evaluated in room B06. A complete history and physical exam was performed. EMR was reviewed. The patient had bloodwork done on June 24, and Hemoglobin was 6.8. She had a CT of her abdoment done on January 27 which showed no abdominal aortic aneurysm, diverticulitis, and had patent vasculature despite extensive atherosclerotic plaque with at least 50% stenosis of the artery. The patient had an EGD and colonoscopy done in February. The EGD was negative, and the colonoscopy showed 2 polyps with multiple colonic angioectasia. She has had multiple GI bleed episodes and had a recent blood transfusion in January. 1523: Vital signs stable. Labs show hemoglobin of 6.5, down from 6.[address] of the abdomen shows diverticulosis, without diverticulitis. The patient will be transfused 2 units packed red blood cells and be started on Protonix drip and admitted to the [facility] service. [facility] for further evaluation. Impression & Plan GI bleed, Symptomatic anemia Critical Care Time Critical Care Time: Yes Total Critical Care Time: 54 I have personally spent 54 minutes of critical care time in the direct management of this patient. This includes bedside care, interpretation of diagnostic studies, and testing, discussion with consultants, patient, and family members, and other required patient management activities. This 54 minutes is in excess of all separately billable procedures. Discharge Plan Visit Data Chief Complaint: Referred by Doctor Stated Complaint: DOCTOR SENT TO ER FOR LOW ED Provider: Albert Kothari Discharge Problem: GI bleed, Symptomatic anemia Forms Stand Alone Forms: My [facility] Prescriptions Prescriptions: No Action lovastatin 40 mg tablet 60 mg PO HS Qty: 135 RF: 3 aspirin [Aspir-81] 81 mg Tablet,Delayed Release (Dr/Ec) 81 mg PO QAM RF: 0 ranitidine HCl [Zantac] 150 mg Tablet 150 mg PO HS RF: 0 valsartan [Diovan] 160 mg tablet 160 mg PO HS RF: 0 metoprolol tartrate 25 mg Tablet 25 mg PO BID RF: 0 Linzess 145 mcg Capsule 145 mcg PO QAM RF: 0 furosemide 20 mg Tablet 20 mg PO QAM RF: 0 omeprazole 20 mg Capsule,Delayed Release(Dr/Ec) 20 mg PO BID RF: 0 lactulose 10 gram/15 mL Solution 15 ml PO DAILY PRN (Reason: Constipation) RF: 0 Xzijfqdtxqq-[id number]-CQC Complex [id number] mg Tablet 1 tab PO DAILY RF: 0 acetaminophen [Tylenol Extra Strength] 500 mg Tablet 500 mg PO Q6H PRN (Reason: Pain) RF: 0 Discharge Problem: GI bleed Qualifiers: GI bleed type/associated pathology: unspecified gastrointestinal hemorrhage type Qualified Code(s): K92.2 - Gastrointestinal hemorrhage, unspecified The scribe's documentation has been prepared under my direction and personally reviewed by me in its entirety. I confirm that the note above accurately reflects all work, treatment, procedures, and medical decision making performed by me.
[2019-06-26] MEDS ORDERED: HydrALAZINE HCL 20 MG/ML VIAL IV ONE (18:31)
[2019-06-26] MEDS ORDERED: ONDANSETRON INJ 2 MG/ML 2 ML VIAL IV PRN (18:31)
[2019-06-26] MEDS ORDERED: ACETAMINOPHEN 500 MG TAB PO PRN (18:31)
[2019-06-26] MEDS ORDERED: LACTULOSE SYRUP 10 GM/15 ML BTL 473 ML PO PRN (18:31)
[2019-06-26] MEDS: ACETAMINOPHEN 325 MG TAB PO PRN (19:46)
[2019-06-26] MEDS: METOPROLOL TARTRATE 25 MG TAB PO SCH (19:46)
[2019-06-26] MEDS ORDERED: LOVASTATIN 20 MG TAB PO SCH (21:00)
[2019-06-26] MEDS ORDERED: VALSARTAN 80 MG TAB PO SCH (21:00)
[2019-06-26] MEDS ORDERED: PNEUMOCOCCAL ADMINISTRATION CHARGE ONE (21:15)
[2019-06-26] MEDS ORDERED: PNEUMOCOCCAL POLYSACCHARIDES 25 MCG/0.5 ML VIAL/SYR IM ONE (21:15)
[2019-06-26 22:31] LABS: Hematocrit (blood only) 28.6 % (37-47); Hemoglobin 8.5 g/dL (12.0-16.0)
[2019-06-27] MEDS: PANTOprazole 40 MG in DEXTROSE 5% 100 ML IV SCH ×4 (00:03→14:44)
[2019-06-27 07:51] LABS: Hematocrit (blood only) 30.1 % (37-47); Hemoglobin 8.7 g/dL (12.0-16.0); Mean Corpuscular Hgb Conc 28.9 g/dL (32-36); Mean Corpuscular Volume 80.7 fL (80-100); Mean Platelet Volume 10.3 fL (7.4-10.4); Platelet Count 234 K/uL (130-400); RDW Coefficient of Variation 17.6 % (11.5-14.5); Red Blood Count 3.73 M/uL (4.2-5.4); White Blood Count 4.79 K/uL (4.8-10.8)
[2019-06-27 08:02] LABS: BUN Creatinine Ratio 15.4 (10-20); Calcium 8.6 mg/dl (8.5-10.1); Creatinine Clr Calc Pharmacy 32.8 ml/min; Est GFR (African American) 47.8; Est GFR (Non-African American) 41.3
[2019-06-27] MEDS: METOPROLOL TARTRATE 25 MG TAB PO SCH (08:38)
[2019-06-27] MEDS: ACETAMINOPHEN 325 MG TAB PO PRN (08:38)
[2019-06-27] MEDS ORDERED: FUROSEMIDE 20 MG TAB PO SCH (09:00)
[2019-06-27] MEDS ORDERED: NON-FORMULARY MEDICATION (Glucosam-Chond-Msm1-C-Mang-Bor [Glucosamine-Chond-Msm Complex] 1 PO SCH (09:00)
--- NOTE | 2019-06-27 09:37 | Gastrointestinal Consultation ---
Date of Consultation June 27, 2019 Assessment & Plan (1) Symptomatic anemia: Patient is an 89 yo female with anemia. No gross GI bleeding at present. Patient has a history of colonic AVMs. Her last EGD & colonoscopy was in February 2019. -Continue to monitor H/H. Transfusion per primary team orders. -If patient agreeable, can consider endoscopic evaluation on 06/28/2019 with a colonoscopy & EGD w/ push enteroscopy. -Monitor for overt GI bleeding. -Clear liquids today. NPO after midnight. Thank you for allowing us to participate in the care of this patient. If you should have any further questions or concerns, do not hesitate to contact us at extension [phone] or [phone]. Present on Admission?: Yes Supervising Physician Co-Signing Physician Notes Agree with MATTHEW Capellan as above Abd: Soft, NT, ND Patient and son are in the room, and she states that she does not wish to undergo any invasive testing Nursing reports no overt GI bleeding today, with passage of brown solid stools Will treat conservatively, and cancel EGD and colonoscopy which were scheduled for tomorrow. History of Present Illness Reason for Consultation: Anemia Attending Physician: Mik Acosta MD History of Present Illness Patient is an 89 yo female with a PMH of iron deficiency anemia, HLD, & CHF who presents at the request of her PCP due to outpatient labs that indicated anemia. The patient's H/H was 6.5/24.1 at the time of presentation to the ED. Her granddaughter is at bedside and reports that Lucy often has abdominal discomfort (generalized throughout the abdomen) but has not been experiencing BRBPR or melena. She underwent an EGD & colonoscopy in February 2019 that indicated gastritis, 2 polyps, AVMS (nonbleeding), diverticulosis & internal hemorrhoids. She denies further issues at present. No pertinent family history. Allergies Allergy/AdvReac Type Severity Reaction Status Date / Time lisinopril AdvReac Mild Cough Verified 06/26/19 12:44 Home Medications Home Medications Medication Instructions Recorded Confirmed Type Linzess 145 mcg PO QAM 09/20/18 06/26/19 History aspirin [Aspir-81] 81 mg PO QAM 09/20/18 06/26/19 History metoprolol tartrate 25 mg PO BID 09/20/18 06/26/19 History ranitidine HCl [Zantac] 150 mg PO HS 09/20/18 06/26/19 History valsartan [Diovan] 160 mg PO HS 09/20/18 06/26/19 History furosemide 20 mg PO QAM 01/27/19 06/26/19 History omeprazole 20 mg PO BID 01/28/19 06/26/19 History Jqmwytjuglw-Zsqpr-EJI Complex 1 tab PO DAILY 02/15/19 06/26/19 History lactulose 15 ml PO DAILY PRN 02/15/19 06/26/19 History lovastatin 40 mg tablet 60 mg PO HS #135 tab 06/13/19 06/26/19 Rx acetaminophen [Tylenol Extra 500 mg PO Q6H PRN 06/26/19 06/26/19 History Strength] Patient History Medical History Hypercholesteremia (Chronic) CHF (congestive heart failure) Anemia Constipation GERD (gastroesophageal reflux disease) Hypertension Family History Other No family history of adverse response to anesthesia Social History Preferred Language: Cory Communication Ability: Impaired Communication Ability Comment: family to interpret Communication Tools: Other Marketing Communications Associate Required: Yes Beliefs That Will Affect Care: None Current Living Situation: Family Current Living Situation Comment: lives with son and family Other Information That Helps Us Care for You: No Feels Safe at Home: Yes Smoking Status: Never smoker Second Hand Exposure: No ; Hx Alcohol Use: No Hx Substance Use: No Review of Systems Constitutional: + fatigue Eyes: no acute issues Respiratory: no cough and no dyspnea Cardiovascular: no chest pain Gastrointestinal: + abdominal pain; no constipation, no diarrhea/loose stools, no blood in stools and no melena Musculoskeletal: no back pain Integumentary: no rash Neurologic: no dizziness Psychiatric: no acute issues Endocrine: + fatigue Hematologic / Lymphatic: no easy bleeding Physical Exam Constitutional: WD/WN, vitals as above Eyes: PERRL, conjunctivae normal, anicteric sclerae ENMT: external ear and nose normal, oropharynx normal Neck: normal visual inspection Respiratory: normal respiratory effort, lungs clear to auscultation Cardiovascular: Rate/Rhythm: regular rate and regular rhythm Gastrointestinal (Abdomen): Inspection/Auscultation: normal bowel sounds Percussion/Palpation: + abdomen tender and abdomen soft Musculoskeletal: no cyanosis or clubbing, extremities motor strength 5/5 Skin: no rashes, warm and dry Psychiatric: A+Ox3, euthymic affect Results & Data Vital Signs (Past 12 Hours) Vital Signs Temp Pulse Pulse Resp BP Pulse Ox 06/27/19 08:35 66 06/27/19 07:47 36.8 C 59 L 19 145/68 H 95 06/27/19 03:20 36.3 C L 61 17 124/66 92 06/27/19 00:00 64 06/26/19 23:11 36.8 C 68 18 143/79 H 95 PG Care Time/CCT Total # of Minutes Spent Total Time Spent with Patient: Total time spent is greater than 50% in coordination of care (as documented) at patient's floor/unit and/or counseling patient:
--- NOTE | 2019-06-27 10:41 | Hospitalist Progress Note ---
Date of Service June 27, 2019 Assessment & Plan (1) Anemia: Acute blood loss anemia Likely GI bleed as patient has history of multiple Hgb 6.5 in ED - given 2 units prbcs, will recheck hbg this evening and again overnight, cbc am Protonix gtt, though I suspect this is a colonic bleed as she has had in the past. EGD 02/21 was without abnormality other than gastritis Consult Dr. Yoon NPO - no IVF for now as patient has history of pulmonary edema with blood transfusion hold ASA (2) Hypertension: as high as 206/86 in the ED, denies chest pain but does have right arm pain continue home valsartan, metoprolol will add hydralazine prn Troponin in ED initially normal, repeat in 6 hours (3) GERD (gastroesophageal reflux disease): Protonix gtt as above, ranitidine (4) CHF (congestive heart failure): chronic diastolic continue furosemide, Is&Os, daily weights Results & Data Vital Signs (Past 12 Hours) Vital Signs Temp Pulse Pulse Pulse Resp BP Pulse Ox 06/27/19 09:53 43 L 135/62 06/27/19 08:35 66 06/27/19 07:47 36.8 C 59 L 19 145/68 H 95 06/27/19 03:20 36.3 C L 61 17 124/66 92 06/27/19 00:00 64 06/26/19 23:11 36.8 C 68 18 143/79 H 95 PG Care Time/CCT Total # of Minutes Spent Total Time Spent with Patient: Total time spent is greater than 50% in coordination of care (as documented) at patient's floor/unit and/or counseling patient:
--- NOTE | 2019-06-27 15:42 | Discharge Summary ---
Date of Service June 27, 2019 Admission HPI Per Admitting Provider 89 y/o F Hx HTN, HLD, obese, pulmonary edema following transfusion, hemorrhoids 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 She was admitted for a LGI bled 12/2017 and required a colonoscopy/cauterization. She recently had a colonoscopy on 02/21 which showed multiple non bleeding angioectasias, hemorrhoids, and removal of two polyps of which pathology revealed them to be tubular adenomas. She presents today for GI bleed. She was feeling weak with shoulder pain and so had blood work drawn by her pcp on Wednesday. Her pcp called this morning to tell her to go to the ED for severe anemia. She complains of abdominal pain, nausea, right shoulder pain, and cough The pt does not speak [place]. History was provided by granddaughter and discussion took place via planning aide as patient speaks Cory. Principal Diagnosis GI Bleed Discharge Exam Constitutional WD/WN, vitals as above Respiratory normal respiratory effort, lungs clear to auscultation Cardiovascular RRR, no murmur, no edema Gastrointestinal (Abdomen) Inspection/Auscultation: abdomen normal to inspection and normal bowel sounds; abdomen not distended Percussion/Palpation: abdomen nontender Musculoskeletal no cyanosis or clubbing, extremities motor strength 5/5 Skin no rashes, warm and dry Neurologic moves all extremities and awake Psychiatric A+Ox3, euthymic affect Discharge Data Allergies Allergy/AdvReac Type Severity Reaction Status Date / Time lisinopril AdvReac Mild Cough Verified 06/26/19 12:44 Consultations 06/26/19 15:23 ED Decision to Admit Stat 06/26/19 18:31 Consult Case Management - Discharge Planning Routine Consult Gastroenterology Stat Procedures Performed Operation Date: 06/28/19 08:30 <No data on this case meets the specified criteria> Ordered Studies 06/26/19 12:30 CT abd pelvis IV con only Stat Hospital Course (1) Anemia: Acute blood loss anemia Likely GI bleed as patient has history of multiple Hgb 6.5 in ED - given 2 units prbcs, hgb has been stable overnight and today around 8.5. Protonix gtt, though I suspect this is a colonic bleed as she has had in the past due to AVM. EGD 02/21 was without abnormality other than gastritis Consulted Case - patient told her family she does not want any scopes and wants to go home. hold ASA I did attempt to talk to the patient through the iPad bus driver supervisor however kandis lynn was unable to hear it and we could not communicate that way. She cannot read so could not use any planning aide apps. Discussion took place via granddaughter, grandson and daughter in law who were in the room. They expressed that Ms. Wray wanted to to go home and did not want further treatment. I discussed with them that it was not my recommendation that she leave as she had not been out of bed and as there would be no endoscopic investigation we should watch her for another night to ensure the bleeding has stopped. I further expressed that she is a fall risk as she has not been evaluated for mobility out of bed and combined with the bleed this increases her risk. The family verbalized that they understood the risk but that they are in agreement with her to take her home. However, the granddaughter and daughter in law will be out of town tomorrow and there would be no one to stay with her at home. I discussed with her son my deep concern for her being left alone at home tomorrow and again that it was my recommendation that she stay another night and see how she did tomorrow and not to discharge yet. He verbalized that he understood my recommendation but wanted to take her home and that he would ensure someone would be with her all day tomorrow. I did ask the nurse navigator to set up an appointment for the patient on for close follow up. (2) Hypertension: Blood pressures resolved overnight continue home valsartan, reduce metoprolol to 12.5 mg due to bradycardia Troponin wnl x 2 (3) GERD (gastroesophageal reflux disease): Protonix gtt as above, ranitidine - return to bid esomeprazole and ranitidine at home (4) CHF (congestive heart failure): chronic diastolic continue furosemide, Is&Os, daily weights Total Time Total Time Spent Total Time Spent (In Minutes): greater than 30 minutes Discharge Plan Discharge Items Patient Disposition: Home - Self-Care Reason For Visit: GI BLEED Discharge Diagnosis: GI Bleed Discharge Goals: Decrease discomfort and Improve disease control Activity: Resume your previous activity Activity Comment: gradually as tolerated Non-emergency contact: Primary Care Provider Call non-emergency contact if: you have any medication questions and your symptoms worsen Follow-up/Referrals: Maximus Diaz MD [Primary Care Provider] - 06/29/19 11:30 am (Please, follow up at Dr. Diaz's office with his associate, Tracey WOLFE, on June 29 at 11:30 am. *If you need to change this appointment, call their office at [phone].) Diet: Heart Healthy Addtl Provider Instructions: As we discussed earlier, Ms. Wray needs to have 24 hour supervision until her appointment with her primary care provider when you can re-evaluate how she is doing and her further care with him. Return to the emergency department if she is having blood in her stools, dark tarry stools, chest pain, dizziness, or other symptoms of gastrointestinal bleeding. Please hold aspirin until follow up appointment. Please reduce metoprolol to 12.5 mg twice per day as your heart rate has been running low. Prescriptions: Continued lovastatin 40 mg tablet 60 mg PO HS Qty: 135 RF: 3 ranitidine HCl [Zantac] 150 mg Tablet 150 mg PO HS RF: 0 valsartan [Diovan] 160 mg tablet 160 mg PO HS RF: 0 Linzess 145 mcg Capsule 145 mcg PO QAM RF: 0 furosemide 20 mg Tablet 20 mg PO QAM RF: 0 omeprazole 20 mg Capsule,Delayed Release(Dr/Ec) 20 mg PO BID RF: 0 lactulose 10 gram/15 mL Solution 15 ml PO DAILY PRN (Reason: Constipation) RF: 0 Hxmghnvegds-Xknbr-EUD Complex [id number] mg Tablet 1 tab PO DAILY RF: 0 acetaminophen [Tylenol Extra Strength] 500 mg Tablet 500 mg PO Q6H PRN (Reason: Pain) RF: 0 Changed metoprolol tartrate 25 mg Tablet 12.5 mg PO BID Qty: 0 RF: 0 Discontinued aspirin [Aspir-81] 81 mg Tablet,Delayed Release (Dr/Ec) 81 mg PO QAM RF: 0 Stand-Alone Forms: [facility] Discharge Orders: Discharge Order (Routine); Ordered 06/27/19 Ordered By: Jada Rebollar Admission Data Admit Date/Time: 06/26/19 16:12 Attending Provider: Mik Acosta Admit Provider: Mik Acosta Primary Care Provider: Maximus Diaz Other Providers: Nisha Wellington ; Javier Yoon Service: Telemetry Other Interventions: Discharge Summary Assessment (RN) Last Done: 06/27/19 16:04 DC Date/Time DO NOT enter until pt leaves facility: 06/27/19 16:29 Supervising Physician Co-Signing Physician Notes I supervised Jada Rebollar NP on this patient's care. I discussed the plan of care with her with the plan being as written in her note except for any following changes/exceptions: None. Patient seen and examined independently of Ms. Rebollar today. The patient was seen with her granddaughter and grandson. The granddaughter provided translation as the patient is hard of hearing and could not use the bus driver supervisor iPad. Per the patient and all of her family, she does not want any further procedures, including an EGD or a colonoscopy. She wishes to return home. Her family is in agreement. Cyrilajderick and I both discussed the risks of leaving the hospital; however, the family is in agreement and decided to take her home. Hemoglobin has been stable, so we have reason to believe her possible AVM has stopped bleeding of its own accord. She will have close outpatient follow-up, and was instructed to return to the hospital if she has further bleeding.
[2019-06-27] MEDS ORDERED: LAVAGE SOLUTION 4000ML PO SCH (18:00)
[2019-06-28] MEDS ORDERED: PROPOFOL IV EMULSION 10 MG/ML 20 ML VIAL IV ONE ×2 (08:21→08:36)
[2019-06-28] MEDS ORDERED: LIDOCAINE HCL 2% 2 ML VIAL/AMP(20MG/ML) INFIL ONE ×2 (08:21→08:36)
[2019-06-28] MEDS ORDERED: LINACLOTIDE 72 MCG CAPSULE PO SCH ×2 (09:00)
== END 2019-06-27 16:29 | disposition home or self-care (01) | DRG 378 ==
LOC: ED 12:10 → 2S 16:12